=== PATIENT | female | born 1970 | race Caucasian/White ===

== ENCOUNTER 2017-12-19 12:23 | Emergency (ER) | payer MEDICARE, MEDICAID, SELFPAY ==
[2017-12-19 12:42] VITALS: BP 111/69; PULSE 71; RESP 16; TEMP 36.7; O2SAT 98
--- NOTE | 2017-12-19 12:59 | DI.RAD.S_ITS ---
PROCEDURE: XR FINGER RT MIN 2V INDICATIONS: swelling, injury distal end of 3rd digit TECHNIQUE: AP hand, 2 views of the right 3rd finger(s) acquired. COMPARISON: None. FINDINGS: Bones: There is lucency traverses the proximal aspect of the distal phalanx of the 3rd digit, which is seen on only one view. No suspicious bony lesions. Soft tissues: No suspicious soft tissue calcifications. IMPRESSION: Possible minimally displaced fracture of the proximal aspect of the distal phalanx of the 3rd digit. Clinical correlation recommended. Dictated by: Natasha Hanson M.D. on 12/19/2017 at 13:17 Approved by: Natasha Hanson M.D. on 12/19/2017 at 13:18
--- NOTE | 2017-12-19 15:00 | ED.UPPEXIN ---
HPI - Extremity Injury (Upper) <MARY Freire - Last Filed: 12/19/17 22:37> General Chief Complaint: Extremity Injury, Upper Stated Complaint: LUMP, BRUISED, SWOLLEN MIDDLE FINGER ON RIGHT HAND Time Seen by Provider: 12/19/17 14:59 History of Present Illness HPI narrative: 47-year-old female here for complaint of pain into her distal middle finger. She states that she was walking her dog earlier today when the dog took off after a animal with the lesion that was wrapped around her distal right middle finger. She reports increased pain with motion of the right middle finger. She denies any other injuries or concerns. Related Data Home Medications Medication Instructions Recorded Confirmed ASPIRIN (#ASPIRIN) 81 mg PO QDAY #0 12/05/10 ALBUTEROL (PROVENTIL INHALER) 0.09 mg IH #0 12/06/10 BUPROPION HCL (Bupropion HCl Sr) 150 mg PO #0 12/19/10 buspirone 15 mg PO TID #0 01/22/17 duloxetine 30 mg PO QDAY #0 01/22/17 methocarbamol 500 mg PO BID #0 01/22/17 omeprazole 20 mg PO QDAY #0 01/22/17 ranitidine HCl 300 mg PO HSP PRN #0 01/22/17 Previous Rx's Medication Instructions Recorded beclomethasone dipropionate [Qvar] 0.04 mg IH BID #1 12/06/10 hydroxyzine HCl 25 - 50 mg PO Q6HP PRN #60 02/08/17 oxycodone 1 - 2 tab PO Q4HP PRN #90 tab 02/08/17 Allergies Allergy/AdvReac Type Severity Reaction Status Date / Time Penicillins [PENICILLINS] Allergy Unknown Unverified 11/21/17 13:03 Review of Systems <MARY Freire - Last Filed: 12/19/17 22:37> Constitutional Reports system reviewed and no additional complaints, except as docu Eyes Reports system reviewed and no additional complaints, except as docu ENT Ears, Nose, Mouth, and Throat: Reports system reviewed and no additional complaints, except as docu Cardiovascular Denies chest pain and Denies dyspnea Respiratory Denies dyspnea Gastrointestinal Gastrointestinal: Denies abdominal pain Genitourinary Reports system reviewed and no additional complaints, except as docu Musculoskeletal Comments: Right middle finger pain Integumentary/Breasts Reports system reviewed and no additional complaints, except as docu Neurologic Reports system reviewed and no additional complaints, except as docu Psychiatric Reports system reviewed and no additional complaints, except as docu Exam <MARY Freire - Last Filed: 12/19/17 22:37> Const General: healthy appearing, well developed, well groomed and No acute distress Nutritional Appearance: average body habitus Orientation: alert, awake and oriented x3 HENMT Head: normal to inspection, normocephalic and atraumatic Eyes Pupils: PERRL EOM: EOM intact bilaterally Resp Effort & Inspection: normal respiratory effort Auscultation: clear to auscultation bilaterally Cardio Rate: regular rate Rhythm: regular rhythm Heart Sounds: S1 normal, S2 normal, no click, no gallops, no murmurs and no rubs Skin General: dry skin Extrem Other: Slight swelling to the distal right middle finger. No open lesions. Slight erythema. Distal sensation is intact. Distal cap refill less than 2 sec. Decreased range of motion at to the distal right middle finger due to pain. Course <MARY Freire - Last Filed: 12/19/17 22:37> Orders Ordered: ED Orders 12/19/17 12:59 XR finger RT min 2V Stat Last Vital Signs Temp 97.3 F L 12/19/17 16:04 Pulse 66 12/19/17 16:04 Resp 16 12/19/17 16:04 BP 118/72 12/19/17 16:04 Pulse Ox 96 12/19/17 16:04 <Thiago Horton MD - Last Filed: 12/28/17 04:48> Orders Ordered: ED Orders 12/19/17 12:59 XR finger RT min 2V Stat Last Vital Signs Temp 97.3 F L 12/19/17 16:04 Pulse 66 12/19/17 16:04 Resp 16 12/19/17 16:04 BP 118/72 12/19/17 16:04 Pulse Ox 96 12/19/17 16:04 MDM - Extremity Injury (Upper) <MARY Freire - Last Filed: 12/19/17 22:37> MDM Narrative Medical decision making narrative: X-ray shows nondisplaced fracture to the distal right middle finger. She is placed in a finger splint for comfort and support. [id number] Tylenol or Motrin as needed for any discomfort. Follow up with primary care provider. Ice and elevation help with any swelling. For any worsening symptoms return to the emergency room. Imaging Data finger right: Radiologist's impression: PROCEDURE: XR FINGER RT MIN 2V INDICATIONS: swelling, injury distal end of 3rd digit TECHNIQUE: AP hand, 2 views of the right 3rd finger(s) acquired. COMPARISON: None. FINDINGS: Bones: There is lucency traverses the proximal aspect of the distal phalanx of the 3rd digit, which is seen on only one view. No suspicious bony lesions. Soft tissues: No suspicious soft tissue calcifications. IMPRESSION: Possible minimally displaced fracture of the proximal aspect of the distal phalanx of the 3rd digit. Clinical correlation recommended. Dictated by: Natasha Hanson M.D. on 12/19/2017 at 13:17 Approved by: Natasha Hanson M.D. on 12/19/2017 at 13:18 <Thiago Horton MD - Last Filed: 12/28/17 04:48> Medical Records The PA/PHYSICIAN NEONATOLOGY functioned independently for the care of this pt, I was available, but not asked to participate in care. I am unable to determine appropriateness of management without personally examining the pt. Discharge Plan Departure Patient Disposition: Home, Self-Care Clinical Impression: Fracture of distal phalanx of finger Discharge Date/Time: 12/19/17 16:18 Interventions: ED Discharge Assessment Last Done: 12/19/17 16:18 Instructions: DI for Finger Fracture Activity Restrictions/Additional Instructions: X-ray shows a fracture to the distal middle finger. You have been placed in a splint for comfort and support use as directed. Follow up with primary care provider. Use [id number] Tylenol or Motrin as needed for any discomfort. For any worsening symptoms return to the emergency room. Prescriptions: No Action ASPIRIN (#ASPIRIN) 81 mg PO QDAY Qty: 0 RF: 0 ALBUTEROL (PROVENTIL INHALER) 0.09 mg IH Qty: 0 RF: 0 beclomethasone dipropionate [Qvar] 40 MCG/PUFF aerosol 0.04 mg IH BID Qty: 1 RF: 3 BUPROPION HCL (Bupropion HCl Sr) 150 mg PO Qty: 0 RF: 0 omeprazole 20 MG capsule,delayed release(DR/EC) 20 mg PO QDAY Qty: 0 RF: 0 buspirone 15 MG tablet 15 mg PO TID Qty: 0 RF: 0 duloxetine 30 MG capsule,delayed release(DR/EC) 30 mg PO QDAY Qty: 0 RF: 0 methocarbamol 500 MG tablet 500 mg PO BID Qty: 0 RF: 0 ranitidine HCl 300 MG tablet 300 mg PO HSP PRNQty: 0 RF: 0 hydroxyzine HCl 25 MG tablet 25 - 50 mg PO Q6HP PRNQty: 60 RF: 0 oxycodone 5 MG tablet 1 - 2 tab PO Q4HP PRNQty: 90 RF: 0 Referrals: Walker Machado MD [Primary Care Provider] -
[2017-12-19 16:04] VITALS: BP 118/72; PULSE 66; RESP 16; TEMP 36.3; O2SAT 96
== END 2017-12-19 16:18 | disposition home or self-care (01) ==
PROVIDERS: Emergency Provider Nurse Practitioner Family; Family Provider Internal Medicine; PCP Internal Medicine
DX: S62.639A Displaced fracture of distal phalanx of unspecified finger, initial encounter for closed fracture (principal); Y93.K1 Activity, walking an animal
CPT/HCPCS: 29130; 73140; 99283

== ENCOUNTER 2018-11-03 17:49 | Emergency (ER) | payer MEDICARE, MEDICAID, OTHER, SELFPAY ==
[2018-11-03 18:02] VITALS: BP 99/68; PULSE 88; RESP 20; TEMP 37.2; O2SAT 96
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
--- NOTE | 2018-11-03 20:09 | DI.RAD.S_ITS ---
PROCEDURE: XR LUMBAR SPINE 2-3V INDICATIONS: hx of surgery with trauma TECHNIQUE: 3 views of the lumbar spine were acquired. COMPARISON: [facility], , -SPINE 2-3 VIEWS, 02/05/2017, 16:29. FINDINGS: Bones: 5 [id number] vertebrae are present. There is normal bony alignment. Fusion hardware and disc space are present at the L3-4 level. Hardware is intact. No vertebral body compression fractures. No suspicious bony lesions. Soft tissues: Overlying bowel gas pattern is normal. No suspicious soft tissue calcifications. IMPRESSION: 1. No acute bony or hardware fractures. 2. Normal alignment. Dictated by: Marisol Lemus M.D. on 11/03/2018 at 20:54 Approved by: Marisol Lemus M.D. on 11/03/2018 at 20:55
[2018-11-03 21:19] VITALS: BP 102/55; PULSE 63; RESP 16; TEMP 36.7; O2SAT 96
== END 2018-11-03 21:20 | disposition home or self-care (01) ==
PROVIDERS: Emergency Provider Emergency Medicine; Family Provider Internal Medicine; PCP Internal Medicine
DX: M54.40 Lumbago with sciatica, unspecified side (principal); Y09 Assault by unspecified means
CPT/HCPCS: 72100; 99282; 99283

== ENCOUNTER 2018-12-09 15:45 | Emergency (ER) | payer MEDICARE, MEDICAID, SELFPAY ==
[2018-12-09 15:50] VITALS: BP 105/69; PULSE 83; RESP 18; TEMP 36.7; O2SAT 98; BMI 23.0
--- NOTE | 2018-12-09 15:52 | DI.RAD.S_ITS ---
PROCEDURE: XR RIBS RT MIN 3V W CXR 1V INDICATIONS: rib pain TECHNIQUE: 2 views of the right ribs were acquired, along with a single view chest. COMPARISON: None. FINDINGS: Surgical changes and devices: None. Bones and chest wall: No fractures or dislocations. No suspicious bony lesions. Overlying soft tissues appear unremarkable. Lungs and pleura: No pleural effusions or pneumothorax. Lungs appear clear. Mediastinum: Mediastinal contours appear normal. Heart size is normal. IMPRESSION: Source of rib pain is not seen. Dictated by: Vince Reed M.D. on 12/09/2018 at 16:15 Approved by: Vince Reed M.D. on 12/09/2018 at 16:15
--- NOTE | 2018-12-09 17:14 | ED.BACK ---
HPI - Back Pain/Injury <Rose Whitaker PA-C - Last Filed: 12/09/18 22:22> General Chief Complaint: Back Pain/Injury Stated Complaint: RIGHT RIB PAIN Time Seen by Provider: 12/09/18 16:20 Source: patient Mode of arrival: ambulatory Limitations: no limitations History of Present Illness HPI Narrative: This 48-year-old female complains of right-sided rib pain which started last when she was leaned over loading camping equipment into her truck bed. She states that she had pain all through the weekend, but did continue usual activities including unloading everything into her RV. She has taken a little bit of ibuprofen on and off, none today. No other medications tried. She denies any falls or any other acute injury. no acute changes in pain today. Pain seems localized to those ribs to her, no other chest pain. She has a history of COPD but denies any increased cough, wheeze, or dyspnea. She denies any new fever or rash. She denies any new pain or swelling in her extremities or other new complaints on systems review Related Data Home Medications Medication Instructions Recorded Confirmed ASPIRIN (#ASPIRIN) 81 mg PO QDAY #0 12/05/10 BUPROPION HCL (Bupropion HCl Sr) 150 mg PO #0 12/19/10 buspirone 15 mg PO TID #0 01/22/17 methocarbamol 500 mg PO BID #0 01/22/17 omeprazole 20 mg PO QDAY #0 01/22/17 albuterol sulfate [Ventolin HFA] 12/09/18 cyclobenzaprine 10 mg PO TID PRN 12/09/18 12/09/18 duloxetine 60 mg PO DAILY 12/09/18 12/09/18 epinephrine 0.3 mg IM PRN PRN 12/09/18 12/09/18 hydroxyzine HCl 25 mg PO TID 12/09/18 12/09/18 ranitidine HCl 150 mg PO BID 12/09/18 12/09/18 Previous Rx's Medication Instructions Recorded Qvar 0.04 mg IH BID #1 12/06/10 oxycodone 1 - 2 tab PO Q4HP PRN #90 tab 02/08/17 lidocaine [Lidoderm] 2 patch TOP DAILY #30 each 12/09/18 Allergies Allergy/AdvReac Type Severity Reaction Status Date / Time Penicillins [PENICILLINS] Allergy Unknown Verified 12/09/18 15:59 Review of Systems <Rose Whitaker PA-C - Last Filed: 12/09/18 22:22> Review of Systems ROS Unobtainable: All systems reviewed & are unremarkable except as noted in HPI and below PFSH <Rose Whitaker PA-C - Last Filed: 12/09/18 22:22> Medical History COPD (chronic obstructive pulmonary disease) (Chronic) Tobacco dependence (Chronic) Fibromyalgia (Chronic) Anxiety (Chronic) Dysthymic disorder (Chronic) Gastroesophageal reflux disease (Acute) Surgical History S/P lumbar fusion (Resolved) Social History Smoking Status: Current every day smoker Social History Smoking Status: Current every day smoker Exam <Rose Whitaker PA-C - Last Filed: 12/09/18 22:22> Narrative Exam Narrative: GENERAL APPEARANCE: Patient sitting comfortably, in no distress. NECK/THYROID: Neck supple LUNGS: Clear to auscultation bilaterally, coarse breath sounds, splinting slightly. CHEST: Tender to palpation over the right anterior lateral ribs most at the 6-8 levels, more at the intercostal spaces HEART: Regular rate and rhythm without murmur, normal S1, S2, no S3 or S4. DERMATOLOGIC: No exanthem EXTREMITIES: No edema. No calf tenderness NEUROLOGIC: Alert and oriented, normal speech, gait and coordination. Initial Vital Signs Initial Vital Signs: Vital Signs Temperature 98.1 F 12/09/18 15:50 Pulse Rate 83 12/09/18 15:50 Respiratory Rate 18 12/09/18 15:50 Blood Pressure 105/69 12/09/18 15:50 Pulse Oximetry 98 12/09/18 15:50 <Samantha Long DO - Last Filed: 12/12/18 07:52> Initial Vital Signs Initial Vital Signs: Vital Signs Temperature 98.1 F 12/09/18 15:50 Pulse Rate 83 12/09/18 15:50 Respiratory Rate 18 12/09/18 15:50 Blood Pressure 105/69 12/09/18 15:50 Pulse Oximetry 98 12/09/18 15:50 Course <Rose Whitaker PA-C - Last Filed: 12/09/18 22:22> Orders Ordered: ED Orders 12/09/18 15:52 XR ribs RT min 3V w CXR1V Stat Vital Signs - 8 hr 12/09/18 15:50 12/09/18 17:37 Temperature 98.1 F Pulse Rate 83 74 Respiratory Rate 18 16 Blood Pressure 105/69 Blood Pressure [Left Arm] 88/58 L Pulse Oximetry 98 97 <DO Turner Dunlap Last Filed: 12/12/18 07:52> Orders Ordered: ED Orders 12/09/18 15:52 XR ribs RT min 3V w CXR1V Stat Vital Signs - 8 hr 12/09/18 15:50 12/09/18 17:37 Temperature 98.1 F Pulse Rate 83 74 Respiratory Rate 18 16 Blood Pressure 105/69 Blood Pressure [Left Arm] 88/58 L Pulse Oximetry 98 97 MDM - Back Pain/Injury <AURELIO Obrien Last Filed: 12/09/18 22:22> Imaging Data Chest x-ray: Radiologist's impression: [place] [address] XRay Report Signed Patient: Chelsea Rodrigez [facility]#: [id number] : 1970Acct:[id number] Age/Sex: 48 / FDate of Service: 12/09/18 Loc: ED Accession Number: [id number] Procedure: XR ribs RT min 3V w CXR1V Ordering Provider: Samantha Long D.O. PROCEDURE: XR RIBS RT MIN 3V W CXR 1V INDICATIONS: rib pain TECHNIQUE: 2 views of the right ribs were acquired, along with a single view chest. COMPARISON: None. FINDINGS: Surgical changes and devices: None. Bones and chest wall: No fractures or dislocations. No suspicious bony lesions. Overlying soft tissues appear unremarkable. Lungs and pleura: No pleural effusions or pneumothorax. Lungs appear clear. Mediastinum: Mediastinal contours appear normal. Heart size is normal. IMPRESSION: Source of rib pain is not seen. Dictated by: Vince Reed M.D. on 12/09/2018 at 16:15 Approved by: Vince Reed M.D. on 12/09/2018 at 16:15 Discharge Plan Departure Patient Disposition: Home Clinical Impression: Intercostal muscle strain Qualifiers: Encounter type: initial encounter Qualified Code(s): S29.011A - Strain of muscle and tendon of front wall of thorax, initial encounter Discharge Date/Time: 12/09/18 18:18 Interventions: ED Discharge Assessment Last Done: 12/09/18 18:16 Instructions: DI for Rib Contusion Activity Restrictions/Additional Instructions: Please continue to take ibuprofen 6-800 mg every 8 hours routinely to help with pain and inflammation. I have also sent a prescription for a topical anesthetic patch to your pharmacy that you can wear for 12 hours daily to help with pain. Please use the incentive spirometer as the respiratory therapist instructed you, and you can take deep breaths with the pillow hugging technique to help with pain, make sure you do that at least several times daily to help keep your lungs properly inflated. Please see your PCP for follow-up this week, and return as we talked about if you have any acutely worsening symptoms in the interim Prescriptions: New lidocaine [Lidoderm] 5 % adhesive patch,medicated 2 patch TOP DAILY Qty: 30 RF: 0 No Action ASPIRIN (#ASPIRIN) 81 mg PO QDAY Qty: 0 RF: 0 Qvar 40 MCG/PUFF aerosol 0.04 mg IH BID Qty: 1 RF: 3 BUPROPION HCL (Bupropion HCl Sr) 150 mg PO Qty: 0 RF: 0 omeprazole 20 MG capsule,delayed release(DR/EC) 20 mg PO QDAY Qty: 0 RF: 0 buspirone 15 MG tablet 15 mg PO TID Qty: 0 RF: 0 methocarbamol 500 MG tablet 500 mg PO BID Qty: 0 RF: 0 oxycodone 5 MG tablet 1 - 2 tab PO Q4HP PRNQty: 90 RF: 0 cyclobenzaprine 10 mg tablet 10 mg PO TID PRN (Reason: Muscle Spasm) RF: 0 ranitidine HCl 150 mg tablet 150 mg PO BID RF: 0 hydroxyzine HCl 25 mg tablet 25 mg PO TID RF: 0 epinephrine 0.3 mg/0.3 mL auto-injector 0.3 mg IM PRN PRN (Reason: Allergic Reaction) RF: 0 albuterol sulfate [Ventolin HFA] 90 mcg/actuation HFA aerosol inhaler RF: 0 duloxetine 60 mg capsule,delayed release(DR/EC) 60 mg PO DAILY RF: 0 Referrals: Walker Machado MD [Primary Care Provider] - <Samantha Long DO - Last Filed: 12/12/18 07:52> Cosign ED Attending Matthewature Attestation: I was immediately available in the department for consultation. Documentation has been reviewed. I agree with assessment and plan.
[2018-12-09 17:37] VITALS: BP 88/58; PULSE 74; RESP 16; O2SAT 97
== END 2018-12-09 18:18 | disposition home or self-care (01) ==
PROVIDERS: Emergency Provider Internal Medicine; Family Provider Internal Medicine; PCP Internal Medicine
DX: S29.011A Strain of muscle and tendon of front wall of thorax, initial encounter (principal)
CPT/HCPCS: 71101; 99282; 99283

== ENCOUNTER 2019-05-08 16:12 | Emergency (ER) | payer MEDICARE, MEDICAID, SELFPAY ==
--- NOTE | 2019-05-08 | DI.RAD.S_ITS ---
PROCEDURE: XR FINGER RT MIN 2V INDICATIONS: POST REDUCTION TECHNIQUE: AP hand, 2 views of the right fourth finger(s) acquired. COMPARISON: [facility], , XR FINGER RT MIN 2V, 05/08/2019, 16:28. FINDINGS: Bones: There is been interval reduction of the fracture dislocation at the right fourth IP joint. A displaced volar plate fracture persists; however there is now anatomic alignment at the joint space. Soft tissues: No suspicious soft tissue calcifications. IMPRESSION: Status post successful reduction of the dislocation of the right fourth IP joint with minimally displaced volar plate fracture. Dictated by: Zohra Leo M.D. on 05/08/2019 at 17:02 Approved by: Zohra Leo M.D. on 05/08/2019 at 17:03
--- NOTE | 2019-05-08 16:23 | DI.RAD.S_ITS ---
/PROCEDURE: XR FINGER RT MIN 2V INDICATIONS: dislocated finger TECHNIQUE: AP hand, 2 views of the right fourth finger(s) acquired. COMPARISON: [facility], CR, XR FINGER RT MIN 2V, 05/08/2019, 16:37. [facility], CR, XR FINGER RT MIN 2V, 12/19/2017, 12:41. FINDINGS: Bones: A fracture dislocation is present at the proximal interphalangeal joint of the right fourth digit. The right fourth middle phalanx is dislocated laterally and dorsally with respect to the proximal phalanx. There is a displaced volar plate fracture. Soft tissues: No suspicious soft tissue calcifications. IMPRESSION: Fracture dislocation at the right fourth DIP joint. Dictated by: Zohra Leo M.D. on 05/08/2019 at 17:01 Approved by: Zohra Leo M.D. on 05/08/2019 at 17:02
[2019-05-08 16:24] VITALS: BP 138/96; PULSE 79; RESP 17; TEMP 36.7; O2SAT 94; BMI 23.4
[2019-05-08] MEDS: LIDOCAINE 1% (PF) 6 ML INJ (16:28)
--- NOTE | 2019-05-08 16:50 | ED.GENADULT ---
HPI - General Adult General Chief complaint: Extremity Injury, Upper Stated complaint: fall, think her right hand is broken Time Seen by Provider: 05/08/19 16:21 Source: patient Mode of arrival: Wheelchair Limitations: no limitations History of Present Illness HPI narrative: 48-year-old female here for evaluation of a injured right ring finger. She states she was climbing some stairs to open a door when she tripped on the stairs line lymph finger. It is angulated. No prior injury to finger. Related Data Home Medications Medication Instructions Recorded Confirmed ASPIRIN (#ASPIRIN) 81 mg PO QDAY #0 12/05/10 BUPROPION HCL (Bupropion HCl Sr) 150 mg PO #0 12/19/10 buspirone 15 mg PO TID #0 01/22/17 methocarbamol 500 mg PO BID #0 01/22/17 omeprazole 20 mg PO QDAY #0 01/22/17 albuterol sulfate [Ventolin HFA] 12/09/18 cyclobenzaprine 10 mg PO TID PRN 12/09/18 12/09/18 duloxetine 60 mg PO DAILY 12/09/18 12/09/18 epinephrine 0.3 mg IM PRN PRN 12/09/18 12/09/18 hydroxyzine HCl 25 mg PO TID 12/09/18 12/09/18 ranitidine HCl 150 mg PO BID 12/09/18 12/09/18 Previous Rx's Medication Instructions Recorded Qvar 0.04 mg IH BID #1 12/06/10 oxycodone 1 - 2 tab PO Q4HP PRN #90 tab 02/08/17 lidocaine [Lidoderm] 2 patch TOP DAILY #30 each 12/09/18 acetaminophen-codeine 1 tab PO Q4-6H PRN #7 tab 05/08/19 [Tylenol-Codeine #3] Allergies Allergy/AdvReac Type Severity Reaction Status Date / Time Penicillins [PENICILLINS] Allergy Unknown Verified 12/09/18 15:59 Review of Systems Constitutional Constitutional: Denies fever(s) ENT Ears, Nose, Mouth, and Throat: Denies disequilibrium Musculoskeletal Comments: Right finger injury Integumentary/Breasts Skin/Breast: Denies lesions and Denies rash Neurologic Neurologic: Denies paresthesias, Denies tremor(s) and Denies disequilibrium Hematologic/Lymphatic Hematologic/Lymphatic: Denies easy bleeding and Denies easy bruising PFSH Medical History Anxiety (Chronic) COPD (chronic obstructive pulmonary disease) (Chronic) Dysthymic disorder (Chronic) Fibromyalgia (Chronic) Gastroesophageal reflux disease (Acute) Tobacco dependence (Chronic) Social History Smoking Status: Current every day smoker Exam Initial Vital Signs Initial Vital Signs: Vital Signs Temperature 98.0 F 05/08/19 16:24 Pulse Rate 79 05/08/19 16:24 Respiratory Rate 17 05/08/19 16:24 Blood Pressure 138/96 H 05/08/19 16:24 Pulse Oximetry 94 05/08/19 16:24 Resp Effort & Inspection: normal respiratory effort Cardio Pulses: radial pulses present on the right Skin Lesions: no lesions Rashes: no rashes Extrem Other: Patient with an angulated right ring finger at the PIP joint. Psych Appearance: grossly normal and well kempt Procedures Orthopedic Joint Reduction Joint #1: Time Out Performed: Yes Side: right Joint Reduction Location: finger Analgesia: other (Finger block) Local Anesthesia: lidocaine 1% Amount of anesthesic used (mL): 4 Technique used: traction/counter-traction Post-reduction neuro exam: intact and no change Post-reduction vascular: intact Post Reduction X-Ray Obtained: Yes Post Reduction X-Ray Results: reduced Splint Applied: Yes Patient Tolerated Procedure: Well Orthopedic Splinting/Casting Injury #1: Side: right Upper Extremity Injury Location: finger Upper Extremity Immobilizer: aluminum form splint Post splinting neuro exam: intact Post splinting vascular exam: intact Placed by: Nursing Course Orders Ordered: ED Orders 05/08/19 16:23 XR finger RT min 2V Stat Discontinued Medications Lidocaine HCl (Xylocaine 1% (Pf)) 6 ml INJ NOW ONE Stop: 05/08/19 16:24 Last Admin: 05/08/19 16:28 Dose: 6 ml Documented by: SCANAPO Vital Signs Vital signs: Vital Signs - 8 hr 05/08/19 16:24 05/08/19 17:45 Temperature 98.0 F Pulse Rate 79 Respiratory Rate 17 Blood Pressure 138/96 H 121/75 Pulse Oximetry 94 Medical Decision Making Imaging Data Post reduction finger x-ray: Radiologist's impression: [address] [address] XRay Report Signed Patient: Chelsea Rodrigez [facility]#: [id number] : 1970Acct:[id number] Age/Sex: 48 / FDate of Service: 05/08/19 Loc: ED Accession Number: [id number] Procedure: XR finger RT min 2V Ordering Provider: José Marshall D.O. PROCEDURE: XR FINGER RT MIN 2V INDICATIONS: POST REDUCTION TECHNIQUE: AP hand, 2 views of the right fourth finger(s) acquired. COMPARISON: [facility], , XR FINGER RT MIN 2V, 05/08/2019, 16:28. FINDINGS: Bones: There is been interval reduction of the fracture dislocation at the right fourth IP joint. A displaced volar plate fracture persists; however there is now anatomic alignment at the joint space. Soft tissues: No suspicious soft tissue calcifications. IMPRESSION: Status post successful reduction of the dislocation of the right fourth IP joint with minimally displaced volar plate fracture. Dictated by: Zohra Leo M.D. on 05/08/2019 at 17:02 Approved by: Zohra Leo M.D. on 05/08/2019 at 17:03 Finger x-ray: Radiologist's impression: [address] [address] XRay Report Signed Patient: Chelsea Rodrigez [facility]#: [id number] : 1970Acct:[id number] Age/Sex: 48 / FDate of Service: 05/08/19 Loc: ED Accession Number: [id number] Procedure: XR finger RT min 2V Ordering Provider: José Marshall D.O. /PROCEDURE: XR FINGER RT MIN 2V INDICATIONS: dislocated finger TECHNIQUE: AP hand, 2 views of the right fourth finger(s) acquired. COMPARISON: [facility], , XR FINGER RT MIN 2V, 05/08/2019, 16:37. [facility], , XR FINGER RT MIN 2V, 12/19/2017, 12:41. FINDINGS: Bones: A fracture dislocation is present at the proximal interphalangeal joint of the right fourth digit. The right fourth middle phalanx is dislocated laterally and dorsally with respect to the proximal phalanx. There is a displaced volar plate fracture. Soft tissues: No suspicious soft tissue calcifications. IMPRESSION: Fracture dislocation at the right fourth DIP joint. Dictated by: Zohra Leo M.D. on 05/08/2019 at 17:01 Approved by: Zohra Leo M.D. on 05/08/2019 at 17:02 [facility] Narrative Medical decision making narrative: Patient is neurovascular intact. Her finger was reduced as described above. She does have a volar avulsion fracture. She was placed in a splint. She was given return precautions and follow-up instructions. Instructed to contact her primary doctor for further workup. She expressed understanding and agreement plan for Discharge Plan Departure Patient Disposition: Home Clinical Impression: Dislocation of finger PIP joint Qualifiers: Encounter type: initial encounter Qualified Code(s): S63.289A - Dislocation of proximal interphalangeal joint of unspecified finger, initial encounter Finger fracture, right Qualifiers: Encounter type: initial encounter Finger: ring finger Fracture type: closed Phalanx: middle Fracture alignment: displaced Qualified Code(s): S62.624A - Displaced fracture of middle phalanx of right ring finger, initial encounter for closed fracture Discharge Date/Time: 05/08/19 17:45 Instructions: DI for Finger Fracture, DI for Finger Dislocation Activity Restrictions/Additional Instructions: The splint needs to stay on. Tomorrow contact your primary provider for a follow-up. I would expect the splint to stay on for the next 3-4 weeks. Take the medication as needed. Return to the emergency department for any new or worsening symptoms. Prescriptions: New acetaminophen-codeine [Tylenol-Codeine #3] 300-30 mg tablet 1 tab PO Q4-6H PRN (Reason: pain) Qty: 7 RF: 0 No Action ASPIRIN (#ASPIRIN) 81 mg PO QDAY Qty: 0 RF: 0 Qvar 40 MCG/PUFF aerosol 0.04 mg IH BID Qty: 1 RF: 3 BUPROPION HCL (Bupropion HCl Sr) 150 mg PO Qty: 0 RF: 0 omeprazole 20 MG capsule,delayed release(DR/EC) 20 mg PO QDAY Qty: 0 RF: 0 buspirone 15 MG tablet 15 mg PO TID Qty: 0 RF: 0 methocarbamol 500 MG tablet 500 mg PO BID Qty: 0 RF: 0 oxycodone 5 MG tablet 1 - 2 tab PO Q4HP PRNQty: 90 RF: 0 cyclobenzaprine 10 mg tablet 10 mg PO TID PRN (Reason: Muscle Spasm) RF: 0 ranitidine HCl 150 mg tablet 150 mg PO BID RF: 0 hydroxyzine HCl 25 mg tablet 25 mg PO TID RF: 0 epinephrine 0.3 mg/0.3 mL auto-injector 0.3 mg IM PRN PRN (Reason: Allergic Reaction) RF: 0 albuterol sulfate [Ventolin HFA] 90 mcg/actuation HFA aerosol inhaler RF: 0 duloxetine 60 mg capsule,delayed release(DR/EC) 60 mg PO DAILY RF: 0 lidocaine [Lidoderm] 5 % adhesive patch,medicated 2 patch TOP DAILY Qty: 30 RF: 0 Referrals: Walker Machado MD [Primary Care Provider] -
[2019-05-08 17:45] VITALS: BP 121/75
== END 2019-05-08 17:45 | disposition home or self-care (01) ==
PROVIDERS: Emergency Provider Emergency Medicine; Family Provider Internal Medicine; PCP Internal Medicine
DX: S63.289A Dislocation of proximal interphalangeal joint of unspecified finger, initial encounter (principal); S62.624A Displaced fracture of middle phalanx of right ring finger, initial encounter for closed fracture
CPT/HCPCS: 26725; 29130; 73140; 99283

== ENCOUNTER → 2021-07-18 13:25 | Outpatient (CLI) | payer MEDICARE, MEDICAID, SELFPAY ==
--- NOTE | 2021-07-18 | DI.MRI.S_ITS ---
PROCEDURE: MR LUMBAR SPINE WO CON INDICATIONS: Radiculopathy, lumbar region TECHNIQUE: Noncontrast sagittal T1 spin echo and T2 fast echo, sagittal STIR, axial T1 and T2 fast spin echo through the lumbar spine. In cases with scoliosis, additional coronal T2 fast spin echo may be performed. COMPARISON: [facility], MR, MR LUMBAR SPINE WO CON, 10/27/2015, 8:05. [facility], MR, LUMBAR SPINE W/O CONTRAST, 01/14/2015, 7:50. [facility], CR, XR LUMBAR SPINE 2 OR 3 VIEWS, 07/05/2021, 16:06. [facility], CT, CT ABDOMEN PELVIS WITH CONTRAST, 07/15/2020, 12:54. FINDINGS: Image quality: Excellent. Alignment and Curvature: There is normal bony alignment. Bone Marrow: Marrow is of normal overall signal. No acute vertebral body compression fractures. Spinal Cord: Conus medullaris terminates at the L1 level. Visualized cord demonstrates normal signal and size. Paraspinous Soft Tissues: No paravertebral masses. And apparent left renal cyst is again seen, measuring 2 cm. T12-L1: Normal appearance. L1-L2: Mild loss of disc height is seen. Loss of disc signal is seen. Mild disc bulge is seen, with a central disc extrusion, with slight inferior migration of disc material. No significant neural foraminal narrowing is seen. Macrometastasis central the degenerative changes have slightly progressed compared to the prior. L2-L3: The disc height and disk signal are well-preserved. Mild generalized disc bulge is seen. There is moderate right-sided and [id number] left-sided neural foraminal narrowing seen. Minimal central canal narrowing is seen. These imaging findings have progressed compared to the prior study. L3-L4: Postoperative changes are seen at this level, with bilateral pedicle screws and vertical fixation rods. There has been removal of portions of the posterior elements. A disc spacer is seen. Minimal disc bulge is seen. No significant neural foraminal or central canal narrowing can be seen. The degenerative changes are clearly improved compared to the 2016 preoperative MRI examination. L4-L5: The disc height and disk signal are well-preserved. Mild to moderate disc bulge is seen, which is eccentric to the left. There is mild right-sided and at least moderate left-sided facet hypertrophy seen. There is moderate left-sided and minimal right-sided neural foraminal narrowing. Mild central canal narrowing is seen. These imaging findings have progressed compared to the prior study. L5-S1: The disc height and disk signal are well-preserved. Mild generalized disc bulge is seen. There is mild right-sided and moderate left-sided facet hypertrophy seen at this level. There is mild left-sided and no right-sided neural foraminal narrowing seen. Minimal central canal narrowing is seen. There is slight progression of degenerative change compared to 2016. IMPRESSION: Postoperative change is seen at L3-L4, with in the degrees narrowing compared to the preoperative MRI. Interval progression of degenerative change at the other lumbar levels compared to 2016. Dictated by: Kolton Solis M.D. on 07/18/2021 at 13:10 Approved by: Kolton Solis M.D. on 07/18/2021 at 13:15
== END ==
PROVIDERS: Family Provider Internal Medicine; PCP Internal Medicine; Referring Provider Orthopaedic Surgery Orthopaedic Surgery of the Spine; Visit Provider Orthopaedic Surgery Orthopaedic Surgery of the Spine
DX: M47.26 Other spondylosis with radiculopathy, lumbar region (principal); M47.27 Other spondylosis with radiculopathy, lumbosacral region; M48.061 Spinal stenosis, lumbar region without neurogenic claudication; M48.07 Spinal stenosis, lumbosacral region
CPT/HCPCS: 72148

== ENCOUNTER 2021-08-10 10:59 | Emergency (ER) | payer MEDICARE, MEDICAID, SELFPAY ==
[2021-08-10 11:25] VITALS: BP 125/75; PULSE 83; RESP 14; TEMP 37.4; O2SAT 95; BMI 29.2
--- NOTE | 2021-08-10 11:28 | DI.RAD.S_ITS ---
PROCEDURE: XR HAND RT MIN 3V INDICATIONS: fall,hand pain,mostly right 3rd/4th digit TECHNIQUE: 3 views of the hand(s) acquired. COMPARISON: None. FINDINGS: Bones: No fractures or dislocations. ORIF of the digit has been performed. Carpal bones are normally aligned. No suspicious bony lesions. Soft tissues: No suspicious soft tissue calcifications. IMPRESSION: Postsurgical sequelae. No acute fracture. No osseous lesion. If symptoms and/or clinical suspicion for pathology persist, further assessment with repeat, or advanced imaging (e.g., CT, MRI, or bone scan) may be helpful for further assessment. Dictated by: Natasha Hanson M.D. on 08/10/2021 at 11:49 Approved by: Natasha Hanson M.D. on 08/10/2021 at 11:50
--- NOTE | 2021-08-10 14:37 | ED_ITS ---
HPI - Fall General Chief Complaint: Fall Stated Complaint: Fell and heard finger snap yesterday Time Seen by Provider: 08/10/21 14:10 Source: patient History of Present Illness HPI Narrative: 50-year-old woman with a history of anxiety and depression prior fusion to her right middle finger presents with pain to her ring finger after falling last night and hearing a loud ?pop?. She woke this morning to find the area swollen and much more tender in comes in for further evaluation. Related Data Home Medications Medication Instructions Recorded Confirmed ASPIRIN (#ASPIRIN) 81 mg PO QDAY #0 12/05/10 BUPROPION HCL (Bupropion HCl Sr) 150 mg PO #0 12/19/10 buspirone 15 mg tablet 15 mg PO TID #0 01/22/17 methocarbamol 500 mg tablet 500 mg PO BID #0 01/22/17 omeprazole 20 mg capsule,delayed 20 mg PO QDAY #0 01/22/17 release albuterol sulfate 90 mcg/actuation 12/09/18 aerosol inhaler cyclobenzaprine 10 mg tablet 10 mg PO TID PRN 12/09/18 12/09/18 duloxetine 60 mg capsule,delayed 60 mg PO DAILY 12/09/18 12/09/18 release epinephrine 0.3 mg/0.3 mL 0.3 mg IM PRN PRN 12/09/18 12/09/18 injection, auto-injector hydroxyzine HCl 25 mg tablet 25 mg PO TID 12/09/18 12/09/18 ranitidine HCl 150 mg tablet 150 mg PO BID 12/09/18 12/09/18 Previous Rx's Medication Instructions Recorded beclomethasone dipropionate 40 0.04 mg IH BID #1 12/06/10 mcg/actuation aerosol inhaler (Qvar) oxycodone 5 mg tablet 1 - 2 tab PO Q4HP PRN #90 tab 02/08/17 lidocaine 5 % topical patch 2 patch TOP DAILY #30 each 12/09/18 (Lidoderm) acetaminophen 300 mg-codeine 30 mg 1 tab PO Q4-6H PRN #7 tab 05/08/19 tablet (Tylenol-Codeine #3) Allergies Allergy/AdvReac Type Severity Reaction Status Date / Time Penicillins [PENICILLINS] Allergy Unknown Verified 08/10/21 11:25 Review of Systems Review of Systems Narrative: Pertinent positive and negative findings as per HPI Remainder of review of systems is otherwise unremarkable for Constitutional: Fevers, chills, weakness ENT: No sore throat, neck pain, ear pain CV: Chest pain, palpitations, Respiratory: Cough, wheeze, dyspnea GI: Nausea, vomiting, diarrhea, Patient History Medical History (Updated 08/10/21 @ 14:43 by Ghazala Vidal MD) Anxiety COPD (chronic obstructive pulmonary disease) Dysthymic disorder Fibromyalgia Gastroesophageal reflux disease Tobacco dependence Surgical History S/P lumbar fusion Social History Smoking Status: Current every day smoker Smoking Status: Current every day smoker alcohol intake frequency: holidays/special occasions only Substance Use Type: marijuana Exam Narrative Exam Narrative: General: Alert appropriate in no acute distress Respiratory: Able to speak in full sentences, no obvious respiratory distress Skin: No obvious rashes, warm and dry Neurologic: Grossly intact no obvious asymmetries or abnormalities Psych: appropriate insight and affect, cooperative Extremity: Tenderness over the right MCP joint with some ecchymosis. She does have somewhat limited range of motion secondary to tenderness. She is neurovascularly intact Initial Vital Signs Initial Vital Signs: Vital Signs Temperature 99.4 F 08/10/21 11:25 Pulse Rate 83 08/10/21 11:25 Respiratory Rate 14 08/10/21 11:25 Blood Pressure 125/75 08/10/21 11:25 Pulse Oximetry 95 08/10/21 11:25 Procedures Orthopedic Splinting/Casting Right ring finger: Time of procedure: 14:40 Side: right Upper Extremity Injury Location: finger Upper Extremity Immobilizer: nicolas tape and Marlo wrap Post splinting neuro exam: intact Post splinting vascular exam: intact Placed by: Provider Course Orders Ordered: ED Orders 08/10/21 11:28 XR hand RT min 3V Stat Vital Signs Vital signs: Vital Signs - 8 hr 08/10/21 11:25 Temperature 99.4 F Pulse Rate 83 Respiratory Rate 14 Blood Pressure 125/75 Pulse Oximetry 95 MDM - Fall MDM Narrative Medical decision making narrative: 50-year-old woman presents after a fall last night with an acute injury to her left ring finger. X-rays are reassuring. She clearly has sprained her finger and MCP joint. Fingers are nicolas-taped and then Marlo wrap to the hand around a roll of Kerlix for stability with significantly reduced pain. Discussed ibupr ofen and Tylenol, elevation and ice. Reviewed x-ray findings with patient. At this point she is safe for home discharge Discharge Plan Departure Patient Disposition: Home Clinical Impression: Finger sprain Qualifiers: Encounter type: initial encounter Finger: ring finger Sprain of finger site: metacarpophalangeal joint Laterality: right Qualified Code(s): S63.654A - Sprain of metacarpophalangeal joint of right ring finger, initial encounter Instructions: DI for Finger Sprain Activity Restrictions/Additional Instructions: Thank you for coming in today You did not break anything in your finger or your hand. You clearly injured the area and using nicolas taping and the splint/Marlo wrap will be helpful in controlling pain. You can certainly use ice as needed. Using 400 mg of ibuprofen (2 [id number] pills) and 1 Tylenol every 6 hours can be very helpful in controlling pain. Do expect to hurt more and have more swelling over the 1st 48 hours. If your finding new or worsening symptoms please feel free to return to the emergency department or follow-up with your primary care provider. I wish you the best Prescriptions: No Action ASPIRIN (#ASPIRIN) 81 mg PO QDAY Qty: 0 0RF Qvar 40 MCG/PUFF aerosol 0.04 mg IH BID Qty: 1 3RF BUPROPION HCL (Bupropion HCl Sr) 150 mg PO Qty: 0 0RF omeprazole 20 MG capsule,delayed release(DR/EC) 20 mg PO QDAY Qty: 0 0RF buspirone 15 MG tablet 15 mg PO TID Qty: 0 0RF methocarbamol 500 MG tablet 500 mg PO BID Qty: 0 0RF oxycodone 5 MG tablet 1 - 2 tab PO Q4HP PRNQty: 90 0RF acetaminophen-codeine [Tylenol-Codeine #3] 300-30 mg tablet 1 tab PO Q4-6H PRN (Reason: pain) Qty: 7 0RF cyclobenzaprine 10 mg tablet 10 mg PO TID PRN (Reason: Muscle Spasm) 0RF ranitidine HCl 150 mg tablet 150 mg PO BID 0RF hydroxyzine HCl 25 mg tablet 25 mg PO TID 0RF epinephrine 0.3 mg/0.3 mL auto-injector 0.3 mg IM PRN PRN (Reason: Allergic Reaction) 0RF albuterol sulfate [Ventolin HFA] 90 mcg/actuation HFA aerosol inhaler 0RF duloxetine 60 mg capsule,delayed release(DR/EC) 60 mg PO DAILY 0RF lidocaine [Lidoderm] 5 % adhesive patch,medicated 2 patch TOP DAILY Qty: 30 0RF Rx Instructions: leave on most painful area for 12 hrs Referrals: Walker Machado MD [Primary Care Provider] -
[2021-08-10] MEDS: IBUPROFEN 400 MG TABLET PO (14:50)
[2021-08-10] MEDS: ACETAMINOPHEN 325 MG TABLET PO (14:50)
[2021-08-10 14:55] VITALS: BP 131/87; PULSE 87; RESP 18; O2SAT 97
== END 2021-08-10 14:56 | disposition home or self-care (01) ==
PROVIDERS: Emergency Provider Emergency Medicine; Family Provider Internal Medicine; PCP Internal Medicine
DX: S63.654A Sprain of metacarpophalangeal joint of right ring finger, initial encounter (principal); F17.200 Nicotine dependence, unspecified, uncomplicated; W19.XXXA Unspecified fall, initial encounter
CPT/HCPCS: 73130; 99283

== ENCOUNTER 2022-02-19 14:16 | Emergency (ER) | payer MEDICARE, MEDICAID, SELFPAY ==
[2022-02-19 14:40] VITALS: BP 127/78; PULSE 94; RESP 22; TEMP 36.8; O2SAT 97; BMI 27.3
[2022-02-19 14:56] LABS: COVID19 -Nasal RAPID POSITIVE (Negative)
[2022-02-19 17:22] VITALS: BP 132/74; PULSE 96; O2SAT 99
[2022-02-19 17:30] VITALS: BP 119/68; PULSE 90; O2SAT 100
[2022-02-19 18:00] VITALS: BP 123/69; PULSE 80; O2SAT 96
--- NOTE | 2022-02-19 18:06 | ED_ITS ---
HPI - URI/Sore Throat <MARY Garcia - Last Filed: 02/19/22 19:16> General Chief Complaint: Upper Respiratory Symptoms Stated Complaint: swollen ear, cough, fever, throwing up Time Seen by Provider: 02/19/22 18:03 Source: patient Mode of arrival: Ambulatory History of Present Illness HPI Narrative: 51-year-old female, daily smoker and history of COPD, presented to the emergency department with cough, headache, sore throat and right ear x3 days. Patient states that she tested herself at home for COVID 4 days ago and was negative. Patient tested positive for COVID today in the ED. Patient denies any known COVID exposures. Related Data Home Medications Medication Instructions Recorded Confirmed ASPIRIN (#ASPIRIN) 81 mg PO QDAY ##0 12/05/10 BUPROPION HCL (Bupropion HCl Sr) 150 mg PO ##0 12/19/10 buspirone 15 mg tablet 15 mg PO TID ##0 01/22/17 methocarbamol 500 mg tablet 500 mg PO BID ##0 01/22/17 omeprazole 20 mg capsule,delayed 20 mg PO QDAY ##0 01/22/17 release albuterol sulfate 90 mcg/actuation 12/09/18 aerosol inhaler cyclobenzaprine 10 mg tablet 10 mg PO TID PRN Muscle Spasm 12/09/18 12/09/18 duloxetine 60 mg capsule,delayed 60 mg PO DAILY 12/09/18 12/09/18 release epinephrine 0.3 mg/0.3 mL 0.3 mg IM PRN PRN Allergic Reaction 12/09/18 12/09/18 injection, auto-injector hydroxyzine HCl 25 mg tablet 25 mg PO TID 12/09/18 12/09/18 ranitidine HCl 150 mg tablet 150 mg PO BID 12/09/18 12/09/18 Previous Rx's Medication Instructions Recorded beclomethasone dipropionate 40 0.04 mg IH BID ##1 12/06/10 mcg/actuation aerosol inhaler (Qvar) oxycodone 5 mg tablet 1 - 2 tab PO Q4HP PRN #90 tabs 02/08/17 lidocaine 5 % topical patch 2 patch topical DAILY #30 ea 12/09/18 (Lidoderm) acetaminophen 300 mg-codeine 30 mg 1 tab PO Q4-6H PRN pain #7 tabs 05/08/19 tablet (Tylenol-Codeine #3) Allergies Allergy/AdvReac Type Severity Reaction Status Date / Time Penicillins [PENICILLINS] Allergy Unknown Verified 08/10/21 11:25 Review of Systems <MARY Garcia - Last Filed: 02/19/22 19:16> Review of Systems Narrative: Narrative: GENERAL: Denies chills, sweats. See HPI HEENT: Denies sinus pain, difficulty swallowing, dizziness. RESPIRATORY: Denies dyspnea, wheezing, sputum. CARDIOVASCULAR: Denies chest pain, palpitations, edema. GASTROINTESTINAL: Denies nausea, vomiting, abdominal pain, diarrhea, constipation. : Denies dysuria, frequency, incontinence, hematuria, urinary retention, flank pain. MUSCULOSKELETAL: Denies weakness, joint pain, or bony pain. SKIN: Denies rash, skin lesions, or pruritis. NEUROLOGIC: Denies weakness, dizziness, headache, numbness, confusion. PSYCHIATRIC: No concerning psychosocial issues. Patient History <MARY Garcia - Last Filed: 02/19/22 19:16> Medical History Anxiety COPD (chronic obstructive pulmonary disease) Dysthymic disorder Fibromyalgia Gastroesophageal reflux disease Tobacco dependence Surgical History S/P lumbar fusion Social History Smoking Status: Current every day smoker Smoking Status: Current every day smoker alcohol intake frequency: holidays/special occasions only Substance Use Type: marijuana Exam <MARY Garcia - Last Filed: 02/19/22 19:16> Narrative Exam Narrative: Exam Narrative: GENERAL: This is a disheveled-appearing patient, in no acute distress HEAD: Atraumatic. Normocephalic. EYES: Pupils equal round and reactive. Extraocular motions intact. No scleral icterus, injection or drainage. ENT: Nose without bleeding, purulent drainage. Throat with mild erythema, no tonsillar hypertrophy or exudate. Airway patent. NECK: Trachea midline. No JVD or lymphadenopathy. Nontender. CARDIOVASCULAR: Regular rate and rhythm without murmurs, peripheral pulses intact, cap refill <2 sec. RESPIRATORY: Breath sounds equal and clear bilaterally. No wheezes, rales, or rhonchi. No increased respiratory effort. No accessory muscle use. GASTROINTESTINAL: Abdomen soft, non-tender, nondistended without guarding or rebound. No suprapubic pain. EXTREMITIES: Normal range of motion, no clubbing or edema. Neurovascularly intact. NEURO: A&O x 3. SKIN: Warm, dry, no rashes or lesions noted. Initial Vital Signs Initial Vital Signs: Vital Signs Temperature 98.2 F 02/19/22 14:40 Pulse Rate 94 H 02/19/22 14:40 Respiratory Rate 22 02/19/22 14:40 Blood Pressure 127/78 02/19/22 14:40 Pulse Oximetry 97 02/19/22 14:40 Oxygen Delivery Method 02/19/22 14:40 Reviewed <José Marshall DO - Last Filed: 02/19/22 20:54> Initial Vital Signs Initial Vital Signs: Vital Signs Temperature 98.2 F 02/19/22 14:40 Pulse Rate 94 H 02/19/22 14:40 Respiratory Rate 22 02/19/22 14:40 Blood Pressure 127/78 02/19/22 14:40 Pulse Oximetry 97 02/19/22 14:40 Oxygen Delivery Method 02/19/22 14:40 Course <MARY Garcia - Last Filed: 02/19/22 19:16> Orders Ordered: ED Orders 02/19/22 14:37 COVID19 -Nasal RAPID/Pre-Proc Stat Vital Signs Vital signs: Vital Signs - 8 hr 02/19/22 14:40 02/19/22 17:22 02/19/22 17:22 Temperature 98.2 F Pulse Rate 94 H 96 H Respiratory Rate 22 Blood Pressure 127/78 132/74 Pulse Oximetry 97 99 Oxygen Delivery Method Room Air 02/19/22 17:30 02/19/22 17:30 02/19/22 18:00 Temperature Pulse Rate 90 Respiratory Rate Blood Pressure 119/68 123/69 Pulse Oximetry 100 Oxygen Delivery Method 02/19/22 18:00 Temperature Pulse Rate 80 Respiratory Rate Blood Pressure Pulse Oximetry 96 Oxygen Delivery Method <José Marshall DO - Last Filed: 02/19/22 20:54> Orders Ordered: ED Orders 02/19/22 14:37 COVID19 -Nasal RAPID/Pre-Proc Stat Vital Signs Vital signs: Vital Signs - 8 hr 02/19/22 14:40 02/19/22 17:22 02/19/22 17:22 Temperature 98.2 F Pulse Rate 94 H 96 H Respiratory Rate 22 Blood Pressure 127/78 132/74 Pulse Oximetry 97 99 Oxygen Delivery Method Room Air 02/19/22 17:30 02/19/22 17:30 02/19/22 18:00 Temperature Pulse Rate 90 Respiratory Rate Blood Pressure 119/68 123/69 Pulse Oximetry 100 Oxygen Delivery Method 02/19/22 18:00 Temperature Pulse Rate 80 Respiratory Rate Blood Pressure Pulse Oximetry 96 Oxygen Delivery Method MDM - URI/Sore Throat <MARY Garcia - Last Filed: 02/19/22 19:16> Differential Diagnosis Differential diagnosis: Likely other (COVID and cerumen impaction) Lab Data Labs: Lab Results 02/19/22 Range/Units 14:37 SARS-CoV-2 (PCR) Positive H (Negative) MDM Narrative Medical decision making narrative: 51-year-old female, with history of COPD, that presents to the emergency department with right ear pain, cough, sore throat x2 days. COVID was positive. Right ear canal was impacted with dried cerumen. Did not want to expose staff to a COVID positive patient long enough to irrigate her ear canal, so directed her to [id number] earwax removal system. Discussed possibility of Paxlovid prescription, but the side effects and rebound illness were not worth the risk. Discussed return precautions and plan of care with patient, who was agreeable with course of action. <José Marshall DO - Last Filed: 02/19/22 20:54> Lab Data Labs: Lab Results 02/19/22 Range/Units 14:37 SARS-CoV-2 (PCR) Positive H (Negative) Discharge Plan Departure Patient Disposition: Home Clinical Impression: COVID-19, Impacted cerumen Instructions: DI for Ear Pain-Adult, DI for COVID-19 (Suspected or Confirmed ) Activity Restrictions/Additional Instructions: *You have been diagnosed with Covid 19 and wax buildup in your right ear. You may obtain a earwax removal kit from your local pharmacy such as [facility], to flush out the ear wax on the right ear. If symptoms persist, after your COVID symptoms have resolved, he may follow up with your family doctor who may also be able to flush out here ear wax. You were evaluated in the emergency department (ED) with symptoms concerning for COVID-19. While the diagnosis may feel scary, most cases resolve on their own without hospitalization. Certain high risk people are treated with medications to reduce their risk of serious symptoms. At this time, we feel that you are safe to go home. Steps to take at home to care for yourself: ? Get lots of rest and stay hydrated by drinking plenty of fluids. ? You can take acetaminophen (eg, Tylenol) or ibuprofen (eg, Advil, Motrin) for fevers or body aches. ? If you have questions, call your primary care doctor, contact your local health department, or visit the CDC?s website at gov/coronavirus. ? Speak with your primary care doctor within two weeks to discuss a plan to follow up. How to avoid spreading the virus to others: ? Stay at home, except if seeking medical care. ? Cover your coughs (with a tissue or in your elbow) and avoid touching your face unnecessarily. ? Wash your hands often (using soap and water for 20 seconds) to decrease your risk of infecting others. ? Try to avoid close contact with others in your home, including pets. If possible, use a different bathroom, and sleep in a separate room. If you must be near others, be sure everyone wears a face mask and wash your hands before interacting with them. ? If a test was sent and is positive, your local health department may contact you. Follow their directions about when to go back to work or school. ? If you were not tested, you may stop quarantine 10 days after the start of y our symptoms, as long as your fever has been completely gone (without using medications) for at least 24 hours and your other symptoms are improving. ? Vaccination against COVID-19 can reduce your risk of reinfection. If you tested negative for COVID-19, you may get the vaccine as soon as possible. If you tested positive for COVID-19, you should still get a vaccine once allowed by your health department. If you or those around you are concerned about COVID-19, call your primary care doctor for advice about steps to take. Your health system may have specific locations for testing if you are not extremely sick. This lowers the risk that you could catch a virus or pass it on in the ED waiting room. Speak to your doctor or come back to the ED for new or worsening symptoms, such as severe headache, confusion, chest pain, difficulty breathing, or vomiting to the point that you cannot drink fluids. Review medication inserts for side effects and call the ED if you have any questions about the medications or care you received. *What to do: *Please continue to take your regular medications as directed. [ ] New medication prescriptions sent to your pharmacy: [ ] [ ] New medication written as a paper prescription [x ] No new medications given *Please follow up with your primary care provider in 2-3 days, call for an appointment. Let them know you were seen in the Emergency Department and that we ask that you be seen in follow up. We will electronically transmit a record of today's note if your PCP is in our system *If you do not have a primary care provider please contact the [facility] Resource line at [phone]. They will ask some questions about your medical history and help get you set up with a doctor in the community. ? Return to ER if you should have any new, worsening or concerning symptoms, such as worsening pain, severe headache, confusion, chest pain, difficulty breathing, fever greater than 101 F, shaking chills, persistent vomiting to the point that you cannot drink fluids, or other new or worsening symptoms. Prescriptions: No Action ASPIRIN (#ASPIRIN) 81 mg PO QDAY Qty: 0 Qvar 40 MCG/PUFF aerosol 0.04 mg IH BID Qty: 1 3RF BUPROPION HCL (Bupropion HCl Sr) 150 mg PO Qty: 0 omeprazole 20 MG capsule,delayed release(DR/EC) 20 mg PO QDAY Qty: 0 buspirone 15 MG tablet 15 mg PO TID Qty: 0 methocarbamol 500 MG tablet 500 mg PO BID Qty: 0 oxycodone 5 MG tablet 1 - 2 tab PO Q4HP PRNQty: 90 0RF acetaminophen-codeine [Tylenol-Codeine #3] 300-30 mg tablet 1 tab PO Q4-6H PRN (Reason: pain) Qty: 7 0RF cyclobenzaprine 10 mg tablet 10 mg PO TID PRN (Reason: Muscle Spasm) ranitidine HCl 150 mg tablet 150 mg PO BID hydroxyzine HCl 25 mg tablet 25 mg PO TID epinephrine 0.3 mg/0.3 mL auto-injector 0.3 mg IM PRN PRN (Reason: Allergic Reaction) albuterol sulfate [Ventolin HFA] 90 mcg/actuation HFA aerosol inhaler duloxetine 60 mg capsule,delayed release(DR/EC) 60 mg PO DAILY lidocaine [Lidoderm] 5 % adhesive patch,medicated 2 patch TOP DAILY Qty: 30 0RF Rx Instructions: leave on most painful area for 12 hrs Referrals: Walker Machado MD [Primary Care Provider] - Visit Report Forms: Patient Portal/API <José Marshall DO - Last Filed: 02/19/22 20:54> [facility]: Dr Marshall Co-Sign Statement: I was available for consultation during this patient's emergency department visit. This chart is signed by myself for administrative purposes only. I did not have direct contact with this patient during this visit. They were seen independently by the APC.
== END 2022-02-19 18:35 | disposition home or self-care (01) ==
PROVIDERS: Emergency Medicine; Emergency Provider Registered Nurse; Family Provider Internal Medicine; PCP Internal Medicine
DX: U07.1 COVID-19 (principal); H61.21 Impacted cerumen, right ear
CPT/HCPCS: 87635; 99282; C9803

== ENCOUNTER → 2022-12-05 11:02 | Outpatient (CLI) | payer MEDICARE, MEDICAID, SELFPAY ==
--- NOTE | 2022-12-05 | DI.MRI.S_ITS ---
PROCEDURE: MR LUMBAR SPINE WO CON INDICATIONS: Radiculopathy, lumbar region TECHNIQUE: Noncontrast sagittal T1 spin echo and T2 fast echo, sagittal STIR, and T2 fast spin echo through the lumbar spine. In cases with scoliosis, additional coronal T2 fast spin echo may be performed. COMPARISON: [facility], MR, MR LUMBAR SPINE WO CON, 07/18/2021, 13:37. FINDINGS: Image quality: Excellent. Alignment and Curvature: There is normal bony alignment. Bones: Stable L3-L4 PLIF postsurgical changes. Marrow is of normal overall signal. No acute vertebral body compression fractures. Spinal Cord: Conus medullaris terminates at the L1 level. Visualized cord demonstrates normal signal and size. Paraspinous Soft Tissues: No paravertebral masses. T12-L1: Normal appearance. L1-L2: Loss of disc signal and slight loss of disc height. Mild, diffuse disc bulge. Small central disc extrusion. Extruded disc material extends inferiorly to a pedicular level. Mild narrowing of the central canal. No neural foraminal narrowing. No neural compression. L2-L3: Loss of disc signal. Mild, diffuse disc bulge. Mild narrowing of the central canal. Mild bilateral neural foraminal narrowing. No neural compression. L3-L4: Status post fusion. No central stenosis. No neural foraminal narrowing. No neural compression. L4-L5: Loss of disc signal. Mild, diffuse disc bulge. Mild right and moderate left facet hypertrophy. Moderate narrowing of the central canal. Mild right and [id number]-[id number] left neural foraminal narrowing. No neural compression. L5-S1: Slight loss of disc signal. Mild right and moderate left facet hypertrophy. No central stenosis. No neural foraminal narrowing. No neural compression. IMPRESSION: Stable postsurgical changes. Multilevel degenerative disc disease. Multilevel facet arthropathy. No severe central canal narrowing. No severe neural foraminal narrowing. No neural compression. Dictated by: Candi Ballard MD, PhD on 12/05/2022 at 14:10 Approved by: Candi Ballard MD, PhD on 12/05/2022 at 14:15
== END ==
PROVIDERS: Family Provider Internal Medicine; PCP Internal Medicine; Referring Provider Physical Medicine & Rehabilitation; Visit Provider Physical Medicine & Rehabilitation
DX: M51.16 Intervertebral disc disorders with radiculopathy, lumbar region (principal); M47.26 Other spondylosis with radiculopathy, lumbar region; M47.27 Other spondylosis with radiculopathy, lumbosacral region; Z98.1 Arthrodesis status
CPT/HCPCS: 72148

== ENCOUNTER 2023-07-10 09:45 | Outpatient (RCR) | payer MEDICARE, MEDICAID, SELFPAY ==
--- NOTE | 2023-02-07 11:04 | PT.OIE ---
Current Diagnoses Stress incontinence (female) (male) (02/07/23) Pelvic muscle wasting (02/07/23) Nocturia (02/07/23) Urgency of urination (02/07/23) Past Medical History (Last Updated 11/06/22 @ 18:31 by Jayla Garza) Anxiety Chronic back pain Chronic cough COPD (chronic obstructive pulmonary disease) Degenerative disc disease Depression Dysthymic disorder Fibromyalgia Gastroesophageal reflux disease Tobacco dependence Past Surgical History (Last Updated 11/06/22 @ 18:31 by Jayla Garza) Anesthesia History of section (~01/2003) History of cholecystectomy (~1985) History of foot surgery (~1984) History of hand surgery (~07/2019) History of surgery on left wrist (~2014) S/P lumbar fusion (~01/2017) Visit Care Team Role Provider Type Walker Machado MD Family Provider Non-Staff Primary Care Provider Specialty: Internal Medicine Address: [address] [place] [address], [id number] Email: Huey Esparza MD Attending Provider Physician Referring Provider Specialty: [employer] Address: [address] [place] [address], [address], [place], [address] Email: [email or web address] Physical Therapy Initial Evaluation PT-OP-A Visit Information Start: 01/30/23 17:35 Freq: Status: Active Protocol: Document 02/07/23 09:45 [facility] (Rec: 02/07/23 10:20 [facility] [id number]) Out-Patient Physical Therapy Visit Information Visit Information Visit Type Initial Evaluation Visit Start Time 09:45 Visit Stop Time 10:30 Total Visit Minutes 45 Visit Number 1 Evaluation Information Evaluation Date 02/07/23 PT-OP-B Current Condition Start: 01/30/23 17:35 Freq: Status: Active Protocol: Document 02/07/23 09:45 [facility] (Rec: 02/07/23 10:20 [facility] [id number]) Current Condition History of Current Condition Onset Date 1 year ago Current Complaints urinary frequency and urgency, nocturia and stress incontinence History of Current Condition pt notes she has to wake up 3 times per night to void and she void frequently during the day emptying her bladder approx 8 times per day. She feels that she empties her bladder fully. She feels her leaking is primarily from urinary stress incontinence. She is wearing pads daily and changes them at least once during the day but does not wear them at night. History of lumbar fusion and she gets steroid and cortisone injections. Her Fusion was January of 2017 at L3-4. A year later she had a fall onto her back. She has never felt the same since. At that time her bowel movements changed to where she is not fully emptying her bowels. She notes a great amount of cramping in her calfs and feet . Hx of 2 vaginal deliveries and 1 . She drinks 5 glasses of water per day sometimes a glass of milk in the evening. Treatment Goals Patient/Caregiver Goals treatment goals include reducing urinary incontinence, urinary urgency and frequency PT-OP-C Subjective Start: 01/30/23 17:35 Freq: Status: Active Protocol: Document 02/07/23 09:45 [facility] (Rec: 02/07/23 11:02 [facility] [id number]) Patient Questionnaires Pelvic Pain and Urgency/Frequency Patient Symptom Scale Pelvic Pain Score 14 PT-OP-I Pelvic Floor Start: 01/30/23 17:35 Freq: Status: Active Protocol: Document 02/07/23 09:45 [facility] (Rec: 02/07/23 11:02 [facility] [id number]) Pelvic Floor Assessment Urine Pelvic Floor Surgery No Urinary Symptoms Urge Sensation Other Urinary Symptoms urinary stress and urge incontinence, nocturia Leakage Size Medium Leakage Cause Cough,Urge Leaks Per Day 4 Voiding Frequency hourly Nocturia 3 Pads Used In 24 Hours 2 Urine Pad Type Maxi Pad Pelvic Clock Pelvic Clock 12-3 Guarding Pelvic Clock 3-6 Guarding Contraction Ability Voluntary Contraction Weak Voluntary Relaxation Weak Manual Muscle Testing Left 1 Manual Muscle Testing Right 1 Manual Muscle Testing Anterior 1 Manual Muscle Testing Posterior 1 Muscle Endurance (Seconds) 2 Comments Pelvic Floor Comments Chelsea is very guarded on the left lateral wall of her levator ani, she is unable to relax her pelvic floor in order to contract it. Right side is not guarded but only a grade 1/5 MMT is palpated PT-OP-M Strength Start: 01/30/23 17:35 Freq: Status: Active Protocol: Document 02/07/23 09:45 [facility] (Rec: 02/07/23 11:02 [facility] [id number]) Trunk Strength Trunk Manual Muscle Testing Testing Position Supine Flexion 3 Fair Core Stabilization poor transverse abdominal core stabilization, difficulty with recruitment of the TA PT-OP-Q Treatments Start: 01/30/23 17:35 Freq: Status: Active Protocol: Document 02/07/23 09:45 [facility] (Rec: 02/07/23 10:38 [facility] [id number]) Therapeutic Exercises Supine Exercises supported happy baby with legs on chair Reps/Minutes 1-2 minutes supine ball squeeze with pelvic floor contraction Reps/Minutes 2 x 10 reps hooklying clam shells with resistance Reps/Minutes 3 x 10 reps supine pelvic floor stretch Reps/Minutes hold 1-2 min PT-OP-T Assessment and Plan Start: 01/30/23 17:35 Freq: Status: Active Protocol: Document 02/07/23 09:45 [facility] (Rec: 02/07/23 11:02 [facility] [id number]) Physical Therapy Assessment Rehab Potential Rehabilitation Potential Excellent Evaluation Complexity Number of Personal Factors/Comorbidities 0 Number of Body Systems Impaired 1-2 Clinical Presentation at Evaluation Stable Impairments Impairments Pain,Soft Tissue Mobility, Strength,Tone Other Impairments urinary urge and stress incontinence, nocturia Goals 3 Impairment Pelvic floor weakness with MMT 1/5 for all aspects of the pelvic clock Short Term Goal (STG) Chelsea is able to perform a pelvic floor contraction following full relaxation of her pelvic floor STG Duration 4 weeks Mcfp Goal (LTG) Chelsea demonstrates improved strength of the pelvic floor and has improved her MMT to 3/ 5 or better LTG Duration 12 weeks 2 Impairment Urinary stress and urge incontinence with Chelsea reporting she is leaking 3-4 times per day and wears a maxipad which she changes at least 2 times per day Mcfp Goal (LTG) Chelsea reports a overall reducation in urinary leakage to 1 or less per day LTG Duration 12 weeks 1 Impairment urinary urgency and nocturia with pt waking 3 times per night to void Short Term Goal (STG) Chelsea is educated on pelvic floor relaxation to fully empty her bladder as well as urge deference technique to help reduce frequency STG Duration 4 weeks Mcfp Goal (LTG) Chelsea is able to reduce voids to every 2 hours during the day and is waking only 1 time per night to void LTG Duration 12 weeks Assessment Summary Assessment Chelsea is a 52 year old female referred to physical therapy with chief complaints or urinary urgency, frequency, nocturia, stress incontinence symptoms. Chelsea has a history of lumbar fusion 2016 with ongoing pain since she fell following the surgery. She notes that in the past year her symptoms of urinry incontinence started. She was prescribed estradiol for the vaginal wall and has been using this the past 3 months. She is a former smoker and notes she has relapsed but is trying to quit again. She does note a chronic cough and has a history of COPD. I did talk to her about downward pressure from a cough on her bladder. She also notes her bowel movements have not been the same since her fall. She reports not being able to fully empty her bowels in one setting. Chelsea reports waking 3 times per night to void. With examination today Chelsea is guarded and hypertonic on the left lateral wall of the levator ani. She has difficulty with any pelvic floor contraction and tests 1/ 5 MMT for all cuevas of the levator ani. She was educated today on pelvic floor relaxation and the importance of fully relaxing her pelvic floor in order to fully empty her bladder. She was given information on a squatty potty . I also started her with hip ER and IR exercises to begin working on pelvic floor facilitation and she tolerated this well. Chelsea is a good candidate for Pelvic floor physical therapy Physical Therapy Plan Frequency and Duration Frequency of Treatment 1x/Week Duration of treatment (weeks) 12 Plan of Care Start Date 02/07/23 Plan of Care End Date 05/02/23 Therapeutic Interventions Therapeutic Interventions Home Exercise Program,Manual Therapy,Neuromuscular Re- education,Patient/Caregiver Education,Self-Care/Home Management,Soft Tissue Mobilization,Therapeutic Exercises Modalities Biofeedback Next Visit Focus/Plan Next Note Type Treatment Note Next Visit Plan Begin EMG biofeedback for pelvic floor neuro re- education
--- NOTE | 2023-02-07 11:04 | PT.OPPOC ---
Physical, Occupational & Speech Therapy At [facility] Current Diagnoses Stress incontinence (female) (male) (02/07/23) Pelvic muscle wasting (02/07/23) Nocturia (02/07/23) Urgency of urination (02/07/23) Visit Care Team Role Provider Type Walker Machado MD Family Provider Non-Staff Primary Care Provider Specialty: Internal Medicine Address: [address], [place], [address] Email: Huey Esparza MD Attending Provider Physician Referring Provider Specialty: PUNCHING MACHINE OPERATOR Address: [address], [place], [address] Email: [email or web address] Plan Of Care PT-OP-T Assessment and Plan Start: 01/30/23 17:35 Freq: Status: Active Protocol: Document 02/07/23 09:45 [facility] (Rec: 02/07/23 11:02 [facility] [id number]) Physical Therapy Assessment Rehab Potential Rehabilitation Potential Excellent Evaluation Complexity Number of Personal Factors/Comorbidities 0 Number of Body Systems Impaired 1-2 Clinical Presentation at Evaluation Stable Impairments Impairments Pain,Soft Tissue Mobility, Strength,Tone Other Impairments urinary urge and stress incontinence, nocturia Goals 3 Impairment Pelvic floor weakness with MMT 1/5 for all aspects of the pelvic clock Short Term Goal (STG) Chelsea is able to perform a pelvic floor contraction following full relaxation of her pelvic floor STG Duration 4 weeks Analytical Lab Technician Goal (LTG) Chelsea demonstrates improved strength of the pelvic floor and has improved her MMT to 3/ 5 or better LTG Duration 12 weeks 2 Impairment Urinary stress and urge incontinence with Chelsea reporting she is leaking 3-4 times per day and wears a maxipad which she changes at least 2 times per day Analytical Lab Technician Goal (LTG) Chelsea reports a overall re-education in urinary leakage to 1 or less per day LTG Duration 12 weeks 1 Impairment urinary urgency and nocturia with pt waking 3 times per night to void Short Term Goal (STG) Chelsea is educated on pelvic floor relaxation to fully empty her bladder as well as urge deference technique to help reduce frequency STG Duration 4 weeks Analytical Lab Technician Goal (LTG) Chelsea is able to reduce voids to every 2 hours during the day and is waking only 1 time per night to void LTG Duration 12 weeks Assessment Summary Assessment Chelsea is a 52 year old female referred to physical therapy with chief complaints or urinary urgency, frequency, nocturia, stress incontinence symptoms. Chelsea has a history of lumbar fusion 2016 with ongoing pain since she fell following the surgery. She notes that in the past year her symptoms of urinry incontinence started. She was prescribed estradiol for the vaginal wall and has been using this the past 3 months. She is a former smoker and notes she has relapsed but is trying to quit again. She does note a chronic cough and has a history of COPD. I did talk to her about downward pressure from a cough on her bladder. She also notes her bowel movements have not been the same since her fall. She reports not being able to fully empty her bowels in one setting. Chelsea reports waking 3 times per night to void. With examination today Chelsea is guarded and hypertonic on the left lateral wall of the levator ani. She has difficulty with any pelvic floor contraction and tests 1/ 5 MMT for all cuevas of the levator ani. She was educated today on pelvic floor relaxation and the importance of fully relaxing her pelvic floor in order to fully empty her bladder. She was given information on a squatty potty . I also started her with hip ER and IR exercises to begin working on pelvic floor facilitation and she tolerated this well. Chelsea is a good candidate for Pelvic floor physical therapy Physical Therapy Plan Frequency and Duration Frequency of Treatment 1x/Week Duration of treatment (weeks) 12 Plan of Care Start Date 02/07/23 Plan of Care End Date 05/02/23 Therapeutic Interventions Therapeutic Interventions Home Exercise Program,Manual Therapy,Neuromuscular Re- education,Patient/Caregiver Education,Self-Care/Home Management,Soft Tissue Mobilization,Therapeutic Exercises Modalities Biofeedback Next Visit Focus/Plan Next Note Type Treatment Note Next Visit Plan Begin EMG biofeedback for pelvic floor neuro re- education Plan of Care Dates Plan of Care Start Date 02/07/23 Plan of Care End Date 05/02/23 Electronically Signed by: Sara Padilla, PT 02/07/23 8890 If you are in agreement with this Plan of Care, please return a signed and dated copy. I have reviewed this Plan of Care and certify that the skilled therapy services above are required to meet the patient?s needs. Physician Signature Date Printed Name and Credentials Clinical Instructor Signature Printed Name and Credentials
--- NOTE | 2023-02-27 10:33 | PT.OTN ---
Current Diagnoses Stress incontinence (female) (male) (02/27/23) Pelvic muscle wasting (02/27/23) Nocturia (02/27/23) Urgency of urination (02/27/23) Physical Therapy Treatment Note PT-OP-A Visit Information Start: 01/30/23 17:35 Freq: Status: Active Protocol: Document 02/27/23 09:22 [facility] (Rec: 02/27/23 10:17 [facility] [id number]) Out-Patient Physical Therapy Visit Information Visit Information Visit Type Treatment Note Visit Start Time 09:28 Visit Stop Time 10:13 Total Visit Minutes 45 Visit Number 2 PT-OP-B Current Condition Start: 01/30/23 17:35 Freq: Status: Active Protocol: Document 02/07/23 09:45 [facility] (Rec: 02/07/23 10:20 [facility] [id number]) Current Condition History of Current Condition Onset Date 1 year ago Current Complaints urinary frequency and urgency, nocturia and stress incontinence History of Current Condition pt notes she has to wake up 3 times per night to void and she void frequently during the day emptying her bladder approx 8 times per day. She feels that she empties her bladder fully. She feels her leaking is primarily from urinary stress incontinence. She is wearing pads daily and changes them at least once during the day but does not wear them at night. History of lumbar fusion and she gets steroid and cortisone injections. Her Fusion was January of 2017 at L3-4. A year later she had a fall onto her back. She has never felt the same since. At that time her bowel movements changed to where she is not fully emptying her bowels. She notes a great amount of cramping in her calfs and feet . Hx of 2 vaginal deliveries and 1 . She drinks 5 glasses of water per day sometimes a glass of milk in the evening. Treatment Goals Patient/Caregiver Goals treatment goals include reducing urinary incontinence, urinary urgency and frequency PT-OP-C Subjective Start: 01/30/23 17:35 Freq: Status: Active Protocol: Document 02/27/23 09:22 [facility] (Rec: 02/27/23 10:17 [facility] [id number]) OP-PT Subjective Patient Comments Patient Comments pt reports she still has a problem with gluteal substitution when trying to isolate her pelvic floor PT-OP-I Pelvic Floor Start: 01/30/23 17:35 Freq: Status: Active Protocol: Document 02/27/23 09:22 [facility] (Rec: 02/27/23 10:17 [facility] [id number]) Pelvic Floor Assessment Urine Pelvic Floor Surgery No Urinary Symptoms Urge Sensation Other Urinary Symptoms urinary stress and urge incontinence, nocturia Leakage Size Medium Leakage Cause Cough,Urge Leaks Per Day 4 Voiding Frequency hourly Nocturia 3 Pads Used In 24 Hours 2 Urine Pad Type Maxi Pad Pelvic Clock Pelvic Clock 12-3 Guarding Pelvic Clock 3-6 Guarding SEMG (uV) Baseline 2.5 10 Second Contraction 4.5 Contraction Ability Voluntary Contraction Weak Voluntary Relaxation Weak Manual Muscle Testing Left 1 Manual Muscle Testing Right 1 Manual Muscle Testing Anterior 1 Manual Muscle Testing Posterior 1 Muscle Endurance (Seconds) 2 Comments Pelvic Floor Comments 17.3 max, pt able to relax back to 2.5 with contractions on EMG biofeedback with supine adductor assist her average was 8.9 and max of 14.9 PT-OP-M Strength Start: 01/30/23 17:35 Freq: Status: Active Protocol: Document 02/07/23 09:45 [facility] (Rec: 02/07/23 11:02 [facility] [id number]) Trunk Strength Trunk Manual Muscle Testing Testing Position Supine Flexion 3 Fair Core Stabilization poor transverse abdominal core stabilization, difficulty with recruitment of the TA PT-OP-Q Treatments Start: 01/30/23 17:35 Freq: Status: Active Protocol: Document 02/27/23 09:22 [facility] (Rec: 02/27/23 10:17 [facility] [id number]) Therapeutic Exercises Supine Exercises pelvic floor isolations Reps/Minutes x 10 reps holding 10 sec and resting 10 sec supported happy baby with legs on chair Reps/Minutes 1-2 minutes supine ball squeeze with pelvic floor contraction Reps/Minutes 2 x 10 reps hooklying clam shells with resistance Reps/Minutes 3 x 10 reps supine pelvic floor stretch Reps/Minutes hold 1-2 min Self-Care/Home Management Treatment Education Patient Education Home Exercise Program Other Education bladder retraining and urge deference technique pt's HEP was reviewed and she was given a handout on bladder retraining PT-OP-T Assessment and Plan Start: 01/30/23 17:35 Freq: Status: Active Protocol: Document 02/27/23 09:22 [facility] (Rec: 02/27/23 10:17 [facility] [id number]) Physical Therapy Assessment Goals 3 Impairment Pelvic floor weakness with MMT 1/5 for all aspects of the pelvic clock Short Term Goal (STG) Chelsea is able to perform a pelvic floor contraction following full relaxation of her pelvic floor STG Duration 4 weeks Residential Goal (LTG) Chelsea demonstrates improved strength of the pelvic floor and has improved her MMT to 3/ 5 or better LTG Duration 12 weeks 2 Impairment Urinary stress and urge incontinence with Chelsea reporting she is leaking 3-4 times per day and wears a maxipad which she changes at least 2 times per day Malariologist Goal (LTG) Chelsea reports a overall reducation in urinary leakage to 1 or less per day LTG Duration 12 weeks 1 Impairment urinary urgency and nocturia with pt waking 3 times per night to void Short Term Goal (STG) Chelsea is educated on pelvic floor relaxation to fully empty her bladder as well as urge deference technique to help reduce frequency STG Duration 4 weeks Malariologist Goal (LTG) Chelsea is able to reduce voids to every 2 hours during the day and is waking only 1 time per night to void LTG Duration 12 weeks Assessment Summary Assessment Chelsea was able to isolate her pelvic floor on EMG biofeedback today however does much better with ball squeeze for assistance. She was educated in urge deference technique and bladder retraining today as well. Pt was given quick contractions to work on when she has a urge and we added in isolations today as well for long holds. She was educated to continue with her stretches to help relax the pelvic floor. Resting tone stayed at 2.5 uv today Physical Therapy Plan Frequency and Duration Frequency of Treatment 1x/Week Duration of treatment (weeks) 12 Plan of Care Start Date 02/07/23 Plan of Care End Date 05/02/23 Therapeutic Interventions Therapeutic Interventions Home Exercise Program,Manual Therapy,Neuromuscular Re- education,Patient/Caregiver Education,Self-Care/Home Management,Soft Tissue Mobilization,Therapeutic Exercises Modalities Biofeedback Next Visit Focus/Plan Next Note Type Treatment Note Next Visit Plan continue with EMG biofeedback, begin lower abdominal facilitation and training
--- NOTE | 2023-03-29 14:10 | PT.OTN ---
Current Diagnoses Stress incontinence (female) (male) (03/29/23) Pelvic muscle wasting (03/29/23) Nocturia (03/29/23) Urgency of urination (03/29/23) Physical Therapy Treatment Note PT-OP-A Visit Information Start: 01/30/23 17:35 Freq: Status: Active Protocol: Document 03/29/23 13:13 [facility] (Rec: 03/29/23 14:10 [facility] [id number]) Out-Patient Physical Therapy Visit Information Visit Information Visit Type Treatment Note Visit Start Time 13:17 Visit Stop Time 14:00 Total Visit Minutes 43 Visit Number 3 PT-OP-B Current Condition Start: 01/30/23 17:35 Freq: Status: Active Protocol: Document 02/07/23 09:45 [facility] (Rec: 02/07/23 10:20 [facility] [id number]) Current Condition History of Current Condition Onset Date 1 year ago Current Complaints urinary frequency and urgency, nocturia and stress incontinence History of Current Condition pt notes she has to wake up 3 times per night to void and she void frequently during the day emptying her bladder approx 8 times per day. She feels that she empties her bladder fully. She feels her leaking is primarily from urinary stress incontinence. She is wearing pads daily and changes them at least once during the day but does not wear them at night. History of lumbar fusion and she gets steroid and cortisone injections. Her Fusion was January of 2017 at L3-4. A year later she had a fall onto her back. She has never felt the same since. At that time her bowel movements changed to where she is not fully emptying her bowels. She notes a great amount of cramping in her calfs and feet . Hx of 2 vaginal deliveries and 1 . She drinks 5 glasses of water per day sometimes a glass of milk in the evening. Treatment Goals Patient/Caregiver Goals treatment goals include reducing urinary incontinence, urinary urgency and frequency PT-OP-C Subjective Start: 01/30/23 17:35 Freq: Status: Active Protocol: Document 03/29/23 13:13 [facility] (Rec: 03/29/23 14:10 [facility] [id number]) OP-PT Subjective Patient Comments Patient Comments pt notes she sees a little change and when she coughs, she is still feeling the urge to void 2-3 times per day PT-OP-I Pelvic Floor Start: 01/30/23 17:35 Freq: Status: Active Protocol: Document 02/27/23 09:22 [facility] (Rec: 02/27/23 10:17 [facility] [id number]) Pelvic Floor Assessment Urine Pelvic Floor Surgery No Urinary Symptoms Urge Sensation Other Urinary Symptoms urinary stress and urge incontinence, nocturia Leakage Size Medium Leakage Cause Cough,Urge Leaks Per Day 4 Voiding Frequency hourly Nocturia 3 Pads Used In 24 Hours 2 Urine Pad Type Maxi Pad Pelvic Clock Pelvic Clock 12-3 Guarding Pelvic Clock 3-6 Guarding SEMG (uV) Baseline 2.5 10 Second Contraction 4.5 Contraction Ability Voluntary Contraction Weak Voluntary Relaxation Weak Manual Muscle Testing Left 1 Manual Muscle Testing Right 1 Manual Muscle Testing Anterior 1 Manual Muscle Testing Posterior 1 Muscle Endurance (Seconds) 2 Comments Pelvic Floor Comments 17.3 max, pt able to relax back to 2.5 with contractions on EMG biofeedback with supine adductor assist her average was 8.9 and max of 14.9 PT-OP-M Strength Start: 01/30/23 17:35 Freq: Status: Active Protocol: Document 02/07/23 09:45 [facility] (Rec: 02/07/23 11:02 [facility] [id number]) Trunk Strength Trunk Manual Muscle Testing Testing Position Supine Flexion 3 Fair Core Stabilization poor transverse abdominal core stabilization, difficulty with recruitment of the TA PT-OP-Q Treatments Start: 01/30/23 17:35 Freq: Status: Active Protocol: Document 03/29/23 13:13 [facility] (Rec: 03/29/23 14:10 [facility] [id number]) Therapeutic Exercises Supine Exercises templates for coordination and eccentric control Reps/Minutes x 8 min Comments EMG biofeedback templates pelvic floor isolations Reps/Minutes average of a 4 and max of a 6 uv supine ball squeeze with pelvic floor contraction Reps/Minutes x 10 reps Comments 8.5 and max of 16 uv hooklying clam shells with resistance Equipment Used level 2 Reps/Minutes 3 x 10 reps PT-OP-T Assessment and Plan Start: 01/30/23 17:35 Freq: Status: Active Protocol: Document 03/29/23 13:13 [facility] (Rec: 03/29/23 14:10 [facility] [id number]) Physical Therapy Assessment Goals 3 Impairment Pelvic floor weakness with MMT 1/5 for all aspects of the pelvic clock Short Term Goal (STG) Chelsea is able to perform a pelvic floor contraction following full relaxation of her pelvic floor STG Duration 4 weeks Penitentiary Goal (LTG) Chelsea demonstrates improved strength of the pelvic floor and has improved her MMT to 3/ 5 or better LTG Duration 12 weeks 2 Impairment Urinary stress and urge incontinence with Chelsea reporting she is leaking 3-4 times per day and wears a maxipad which she changes at least 2 times per day Penitentiary Goal (LTG) Chelsea reports a overall reducation in urinary leakage to 1 or less per day LTG Duration 12 weeks 1 Impairment urinary urgency and nocturia with pt waking 3 times per night to void 03/29/23 still walking 2-3 times Short Term Goal (STG) Chelsea is educated on pelvic floor relaxation to fully empty her bladder as well as urge deference technique to help reduce frequency STG Duration 4 weeks Penitentiary Goal (LTG) Chelsea is able to reduce voids to every 2 hours during the day and is waking only 1 time per night to void LTG Duration 12 weeks Assessment Summary Assessment Chelsea is able now to isolate her pelvic floor on her own without adductor assist. She still gets better readings on EMG biofeedback with adductor assit though. She is still elevated with her resting tone . I encouraged her to continue both with her strengthening as well as stretches for home Physical Therapy Plan Frequency and Duration Frequency of Treatment 1x/Week Duration of treatment (weeks) 12 Plan of Care Start Date 02/07/23 Plan of Care End Date 05/02/23 Therapeutic Interventions Therapeutic Interventions Home Exercise Program,Manual Therapy,Neuromuscular Re- education,Patient/Caregiver Education,Self-Care/Home Management,Soft Tissue Mobilization,Therapeutic Exercises Modalities Biofeedback Next Visit Focus/Plan Next Note Type Treatment Note Next Visit Plan continue with EMG biofeedback, begin lower abdominal facilitation and training
--- NOTE | 2023-04-19 11:01 | PT-OP ANOTE ---
pt called after her appointment to let us know she forgot about today, she is scheduled for her next visit and Adan reviewed times with her
--- NOTE | 2023-05-01 13:57 | PT.OTN ---
Current Diagnoses Stress incontinence (female) (male) (05/01/23) Pelvic muscle wasting (05/01/23) Nocturia (05/01/23) Urgency of urination (05/01/23) Physical Therapy Treatment Note PT-OP-A Visit Information Start: 01/30/23 17:35 Freq: Status: Active Protocol: Document 05/01/23 10:31 [facility] (Rec: 05/01/23 11:09 [facility] [id number]) Out-Patient Physical Therapy Visit Information Visit Information Visit Type Treatment Note Visit Start Time 10:31 Visit Stop Time 11:15 Total Visit Minutes 44 Visit Number 4 PT-OP-B Current Condition Start: 01/30/23 17:35 Freq: Status: Active Protocol: Document 02/07/23 09:45 [facility] (Rec: 02/07/23 10:20 [facility] [id number]) Current Condition History of Current Condition Onset Date 1 year ago Current Complaints urinary frequency and urgency, nocturia and stress incontinence History of Current Condition pt notes she has to wake up 3 times per night to void and she void frequently during the day emptying her bladder approx 8 times per day. She feels that she empties her bladder fully. She feels her leaking is primarily from urinary stress incontinence. She is wearing pads daily and changes them at least once during the day but does not wear them at night. History of lumbar fusion and she gets steroid and cortisone injections. Her Fusion was January of 2017 at L3-4. A year later she had a fall onto her back. She has never felt the same since. At that time her bowel movements changed to where she is not fully emptying her bowels. She notes a great amount of cramping in her calfs and feet . Hx of 2 vaginal deliveries and 1 . She drinks 5 glasses of water per day sometimes a glass of milk in the evening. Treatment Goals Patient/Caregiver Goals treatment goals include reducing urinary incontinence, urinary urgency and frequency PT-OP-C Subjective Start: 01/30/23 17:35 Freq: Status: Active Protocol: Document 05/01/23 10:31 [facility] (Rec: 05/01/23 11:09 [facility] [id number]) OP-PT Subjective Patient Comments Patient Comments pt notes she is seeing improvement less leaking still experiencing the urgency Patient Reported Progress Improving PT-OP-I Pelvic Floor Start: 01/30/23 17:35 Freq: Status: Active Protocol: Document 02/27/23 09:22 [facility] (Rec: 02/27/23 10:17 [facility] [id number]) Pelvic Floor Assessment Urine Pelvic Floor Surgery No Urinary Symptoms Urge Sensation Other Urinary Symptoms urinary stress and urge incontinence, nocturia Leakage Size Medium Leakage Cause Cough,Urge Leaks Per Day 4 Voiding Frequency hourly Nocturia 3 Pads Used In 24 Hours 2 Urine Pad Type Maxi Pad Pelvic Clock Pelvic Clock 12-3 Guarding Pelvic Clock 3-6 Guarding SEMG (uV) Baseline 2.5 10 Second Contraction 4.5 Contraction Ability Voluntary Contraction Weak Voluntary Relaxation Weak Manual Muscle Testing Left 1 Manual Muscle Testing Right 1 Manual Muscle Testing Anterior 1 Manual Muscle Testing Posterior 1 Muscle Endurance (Seconds) 2 Comments Pelvic Floor Comments 17.3 max, pt able to relax back to 2.5 with contractions on EMG biofeedback with supine adductor assist her average was 8.9 and max of 14.9 PT-OP-M Strength Start: 01/30/23 17:35 Freq: Status: Active Protocol: Document 02/07/23 09:45 [facility] (Rec: 02/07/23 11:02 [facility] [id number]) Trunk Strength Trunk Manual Muscle Testing Testing Position Supine Flexion 3 Fair Core Stabilization poor transverse abdominal core stabilization, difficulty with recruitment of the TA PT-OP-Q Treatments Start: 01/30/23 17:35 Freq: Status: Active Protocol: Document 05/01/23 10:31 [facility] (Rec: 05/01/23 11:09 [facility] [id number]) Therapeutic Exercises Supine Exercises pelvic floor isolations Reps/Minutes 8.2 uv average and max is 16 uv Comments 4.5 average resting tone initially supine ball squeeze with pelvic floor contraction Reps/Minutes x 10 Comments 10 uv and max 14.3 max hooklying clam shells with resistance Equipment Used level 2 Reps/Minutes 3 x 10 reps Other Exercises kristian pose Reps/Minutes hold 2 min quadruped sidebends Reps/Minutes x 10 reps cat cow Reps/Minutes x 10 reps PT-OP-T Assessment and Plan Start: 01/30/23 17:35 Freq: Status: Active Protocol: Document 05/01/23 10:31 [facility] (Rec: 05/01/23 11:09 [facility] [id number]) Physical Therapy Assessment Goals 3 Impairment Pelvic floor weakness with MMT 1/5 for all aspects of the pelvic clock Short Term Goal (STG) Chelsea is able to perform a pelvic floor contraction following full relaxation of her pelvic floor Good progress STG Duration 4 weeks Chain Mender Goal (LTG) Chelsea demonstrates improved strength of the pelvic floor and has improved her MMT to 3/ 5 or better Good progress LTG Duration 12 weeks 2 Impairment Urinary stress and urge incontinence with Chelsea reporting she is leaking 3-4 times per day and wears a maxipad which she changes at least 2 times per day Fpc Goal (LTG) Chelsea reports a overall reducation in urinary leakage to 1 or less per day Chelsea is down to changing her pad 1 time per day and nociting a little less leakage LTG Duration 12 weeks 1 Impairment urinary urgency and nocturia with pt waking 3 times per night to void Short Term Goal (STG) Chelsea is educated on pelvic floor relaxation to fully empty her bladder as well as urge deference technique to help reduce frequency GOAL MET STG Duration 4 weeks Chain Mender Goal (LTG) Chelsea is able to reduce voids to every 2 hours during the day and is waking only 1 time per night to void 05/01/23 pt is waking up 2 times at night now LTG Duration 12 weeks Assessment Summary Assessment Chelsea has not been since last month. She is making good progress with the ability to isolate her pelvic floor now on her own and she is showing strength gains on EMG biofeedback for her pelvic floor. She does note leakage is slowly improving. She is dealing with a great amount of pain in her low back and right SI joint and this also affects pelvic floor control. I have added in some stretches for her to do for her low back prior to working on pelvic floor at home Chelsea would benefit from continued PT Physical Therapy Plan Frequency and Duration Frequency of Treatment 1x/Week Duration of treatment (weeks) 8 Plan of Care Start Date 05/01/23 Plan of Care End Date 06/26/23 Therapeutic Interventions Therapeutic Interventions Home Exercise Program,Manual Therapy,Neuromuscular Re- education,Patient/Caregiver Education,Self-Care/Home Management,Soft Tissue Mobilization,Therapeutic Exercises Modalities Biofeedback Next Visit Focus/Plan Next Note Type Treatment Note Next Visit Plan continue with EMG biofeedback, begin lower abdominal facilitation and training
--- NOTE | 2023-05-01 13:57 | PT.OPPOC ---
Physical, Occupational & Speech Therapy At [facility] Current Diagnoses Stress incontinence (female) (male) (05/01/23) Pelvic muscle wasting (05/01/23) Nocturia (05/01/23) Urgency of urination (05/01/23) Visit Care Team Role Provider Type Ronnie Delgadillo MD Other Providers Physician Specialty: Orthopedics Orthopedic Surgery Address: [address] [place] [address], [place], [address] Email: [email or web address] Family Provider Non-Staff Primary Care Provider Specialty: Internal Medicine Address: [address] [facility], [place], [address] Email: Huey Esparza MD Attending Provider Physician Referring Provider Specialty: [employer] HELIC[employer]TER Address: [address] [place] [address], [address], [address] Email: [email or web address] Plan Of Care PT-OP-T Assessment and Plan Start: 01/30/23 17:35 Freq: Status: Active Protocol: Document 05/01/23 10:31 [facility] (Rec: 05/01/23 11:09 [facility] [id number]) Physical Therapy Assessment Goals 3 Impairment Pelvic floor weakness with MMT 1/5 for all aspects of the pelvic clock Short Term Goal (STG) Chelsea is able to perform a pelvic floor contraction following full relaxation of her pelvic floor Good progress STG Duration 4 weeks Intermediate Goal (LTG) Chelsea demonstrates improved strength of the pelvic floor and has improved her MMT to 3/ 5 or better Good progress LTG Duration 12 weeks 2 Impairment Urinary stress and urge incontinence with Chelsea reporting she is leaking 3-4 times per day and wears a maxipad which she changes at least 2 times per day Intermediate Goal (LTG) Chelsea reports a overall reducation in urinary leakage to 1 or less per day Chelsea is down to changing her pad 1 time per day and nociting a little less leakage LTG Duration 12 weeks 1 Impairment urinary urgency and nocturia with pt waking 3 times per night to void Short Term Goal (STG) Chelsea is educated on pelvic floor relaxation to fully empty her bladder as well as urge deference technique to help reduce frequency GOAL MET STG Duration 4 weeks Silk Top Hat Body Maker Goal (LTG) Chelsea is able to reduce voids to every 2 hours during the day and is waking only 1 time per night to void 05/01/23 pt is waking up 2 times at night now LTG Duration 12 weeks Assessment Summary Assessment Chelsea has not been since last month. She is making good progress with the ability to isolate her pelvic floor now on her own and she is showing strength gains on EMG biofeedback for her pelvic floor. She does note leakage is slowly improving. She is dealing with a great amount of pain in her low back and right SI joint and this also affects pelvic floor control. I have added in some stretches for her to do for her low back prior to working on pelvic floor at home Chelsea would benefit from continued PT Physical Therapy Plan Frequency and Duration Frequency of Treatment 1x/Week Duration of treatment (weeks) 8 Plan of Care Start Date 05/01/23 Plan of Care End Date 06/26/23 Therapeutic Interventions Therapeutic Interventions Home Exercise Program,Manual Therapy,Neuromuscular Re- education,Patient/Caregiver Education,Self-Care/Home Management,Soft Tissue Mobilization,Therapeutic Exercises Modalities Biofeedback Next Visit Focus/Plan Next Note Type Treatment Note Next Visit Plan continue with EMG biofeedback, begin lower abdominal facilitation and training Plan of Care Dates Plan of Care Start Date 05/01/23 Plan of Care End Date 06/26/23 Electronically Signed by: Sara Padilla, PT 05/01/23 [id number] If you are in agreement with this Plan of Care, please return a signed and dated copy. I have reviewed this Plan of Care and certify that the skilled therapy services above are required to meet the patient?s needs. Physician Signature Date Printed Name and Credentials Clinical Instructor Signature Printed Name and Credentials
--- NOTE | 2023-05-08 11:15 | PT.OTN ---
Current Diagnoses Stress incontinence (female) (male) (05/08/23) Pelvic muscle wasting (05/08/23) Nocturia (05/08/23) Urgency of urination (05/08/23) Physical Therapy Treatment Note PT-OP-A Visit Information Start: 01/30/23 17:35 Freq: Status: Active Protocol: Document 05/08/23 10:30 [facility] (Rec: 05/08/23 11:14 [facility] [id number]) Out-Patient Physical Therapy Visit Information Visit Information Visit Type Treatment Note Visit Start Time 10:30 Visit Stop Time 11:15 Total Visit Minutes 45 Visit Number 5 PT-OP-B Current Condition Start: 01/30/23 17:35 Freq: Status: Active Protocol: Document 02/07/23 09:45 [facility] (Rec: 02/07/23 10:20 [facility] [id number]) Current Condition History of Current Condition Onset Date 1 year ago Current Complaints urinary frequency and urgency, nocturia and stress incontinence History of Current Condition pt notes she has to wake up 3 times per night to void and she void frequently during the day emptying her bladder approx 8 times per day. She feels that she empties her bladder fully. She feels her leaking is primarily from urinary stress incontinence. She is wearing pads daily and changes them at least once during the day but does not wear them at night. History of lumbar fusion and she gets steroid and cortisone injections. Her Fusion was January of 2017 at L3-4. A year later she had a fall onto her back. She has never felt the same since. At that time her bowel movements changed to where she is not fully emptying her bowels. She notes a great amount of cramping in her calfs and feet . Hx of 2 vaginal deliveries and 1 . She drinks 5 glasses of water per day sometimes a glass of milk in the evening. Treatment Goals Patient/Caregiver Goals treatment goals include reducing urinary incontinence, urinary urgency and frequency PT-OP-C Subjective Start: 01/30/23 17:35 Freq: Status: Active Protocol: Document 05/08/23 10:30 [facility] (Rec: 05/08/23 11:14 [facility] [id number]) OP-PT Subjective Patient Comments Patient Comments she is still having the urgency but not as frequent as she was before, leaking is not as much PT-OP-I Pelvic Floor Start: 01/30/23 17:35 Freq: Status: Active Protocol: Document 02/27/23 09:22 [facility] (Rec: 02/27/23 10:17 [facility] [id number]) Pelvic Floor Assessment Urine Pelvic Floor Surgery No Urinary Symptoms Urge Sensation Other Urinary Symptoms urinary stress and urge incontinence, nocturia Leakage Size Medium Leakage Cause Cough,Urge Leaks Per Day 4 Voiding Frequency hourly Nocturia 3 Pads Used In 24 Hours 2 Urine Pad Type Maxi Pad Pelvic Clock Pelvic Clock 12-3 Guarding Pelvic Clock 3-6 Guarding SEMG (uV) Baseline 2.5 10 Second Contraction 4.5 Contraction Ability Voluntary Contraction Weak Voluntary Relaxation Weak Manual Muscle Testing Left 1 Manual Muscle Testing Right 1 Manual Muscle Testing Anterior 1 Manual Muscle Testing Posterior 1 Muscle Endurance (Seconds) 2 Comments Pelvic Floor Comments 17.3 max, pt able to relax back to 2.5 with contractions on EMG biofeedback with supine adductor assist her average was 8.9 and max of 14.9 PT-OP-M Strength Start: 01/30/23 17:35 Freq: Status: Active Protocol: Document 02/07/23 09:45 [facility] (Rec: 02/07/23 11:02 [facility] [id number]) Trunk Strength Trunk Manual Muscle Testing Testing Position Supine Flexion 3 Fair Core Stabilization poor transverse abdominal core stabilization, difficulty with recruitment of the TA PT-OP-Q Treatments Start: 01/30/23 17:35 Freq: Status: Active Protocol: Document 05/08/23 10:30 [facility] (Rec: 05/08/23 11:14 [facility] [id number]) Therapeutic Exercises Supine Exercises templates for coordination and eccentric control Reps/Minutes x 8 min Comments EMG biofeedback templates pelvic floor isolations Reps/Minutes 9.8 uv average and max 16.7 Comments 4.5 average resting tone initially supported happy baby with legs on chair Reps/Minutes 1-2 minutes Comments able to hold legs supine ball squeeze with pelvic floor contraction Reps/Minutes x 10 Comments 13.5 uv and max 25.5 max hooklying clam shells with resistance Equipment Used level 2 Reps/Minutes 3 x 10 reps supine pelvic floor stretch Reps/Minutes hold 1-2 min Other Exercises kristian pose Reps/Minutes hold 2 min quadruped sidebends Reps/Minutes x 10 reps cat cow Reps/Minutes x 10 reps PT-OP-T Assessment and Plan Start: 01/30/23 17:35 Freq: Status: Active Protocol: Document 05/08/23 10:30 [facility] (Rec: 05/08/23 11:14 [facility] [id number]) Physical Therapy Assessment Goals 3 Impairment Pelvic floor weakness with MMT 1/5 for all aspects of the pelvic clock Short Term Goal (STG) Chelsea is able to perform a pelvic floor contraction following full relaxation of her pelvic floor Good progress STG Duration 4 weeks Alf Goal (LTG) Chelsea demonstrates improved strength of the pelvic floor and has improved her MMT to 3/ 5 or better Good progress LTG Duration 12 weeks 2 Impairment Urinary stress and urge incontinence with Chelsea reporting she is leaking 3-4 times per day and wears a maxipad which she changes at least 2 times per day Alf Goal (LTG) Chelsea reports a overall reducation in urinary leakage to 1 or less per day Chelsea is down to changing her pad 1 time per day and nociting a little less leakage LTG Duration 12 weeks 1 Impairment urinary urgency and nocturia with pt waking 3 times per night to void Short Term Goal (STG) Chelsea is educated on pelvic floor relaxation to fully empty her bladder as well as urge deference technique to help reduce frequency GOAL MET STG Duration 4 weeks Cottonseed Meat Presser Goal (LTG) Chelsea is able to reduce voids to every 2 hours during the day and is waking only 1 time per night to void 05/01/23 pt is waking up 2 times at night now LTG Duration 12 weeks Assessment Summary Assessment Chelsea continues to make progress with pelvic floor strengtening. She is still guarded in her pelvic floor at rest and stretches were reviewed today to help with relaxed awareness. Sidelying position for pelvic floor exercises also seems to help Physical Therapy Plan Frequency and Duration Frequency of Treatment 1x/Week Duration of treatment (weeks) 8 Plan of Care Start Date 05/01/23 Plan of Care End Date 06/26/23 Therapeutic Interventions Therapeutic Interventions Home Exercise Program,Manual Therapy,Neuromuscular Re- education,Patient/Caregiver Education,Self-Care/Home Management,Soft Tissue Mobilization,Therapeutic Exercises Modalities Biofeedback Next Visit Focus/Plan Next Note Type Treatment Note Next Visit Plan continue working on relaxing the pelvic floor at rest and endurance trAINING
--- NOTE | 2023-05-15 11:09 | PT.OTN ---
Current Diagnoses Stress incontinence (female) (male) (05/15/23) Pelvic muscle wasting (05/15/23) Nocturia (05/15/23) Urgency of urination (05/15/23) Physical Therapy Treatment Note PT-OP-A Visit Information Start: 01/30/23 17:35 Freq: Status: Active Protocol: Document 05/15/23 10:32 [facility] (Rec: 05/15/23 11:09 [facility] [id number]) Out-Patient Physical Therapy Visit Information Visit Information Visit Type Treatment Note Visit Start Time 10:30 Visit Stop Time 11:15 Total Visit Minutes 45 Visit Number 6 PT-OP-B Current Condition Start: 01/30/23 17:35 Freq: Status: Active Protocol: Document 02/07/23 09:45 [facility] (Rec: 02/07/23 10:20 [facility] [id number]) Current Condition History of Current Condition Onset Date 1 year ago Current Complaints urinary frequency and urgency, nocturia and stress incontinence History of Current Condition pt notes she has to wake up 3 times per night to void and she void frequently during the day emptying her bladder approx 8 times per day. She feels that she empties her bladder fully. She feels her leaking is primarily from urinary stress incontinence. She is wearing pads daily and changes them at least once during the day but does not wear them at night. History of lumbar fusion and she gets steroid and cortisone injections. Her Fusion was January of 2017 at L3-4. A year later she had a fall onto her back. She has never felt the same since. At that time her bowel movements changed to where she is not fully emptying her bowels. She notes a great amount of cramping in her calfs and feet . Hx of 2 vaginal deliveries and 1 . She drinks 5 glasses of water per day sometimes a glass of milk in the evening. Treatment Goals Patient/Caregiver Goals treatment goals include reducing urinary incontinence, urinary urgency and frequency PT-OP-C Subjective Start: 01/30/23 17:35 Freq: Status: Active Protocol: Document 05/15/23 10:32 [facility] (Rec: 05/15/23 11:09 [facility] [id number]) OP-PT Subjective Patient Comments Patient Comments pt notes she has only been getting up one time per night PT-OP-I Pelvic Floor Start: 01/30/23 17:35 Freq: Status: Active Protocol: Document 02/27/23 09:22 [facility] (Rec: 02/27/23 10:17 [facility] [id number]) Pelvic Floor Assessment Urine Pelvic Floor Surgery No Urinary Symptoms Urge Sensation Other Urinary Symptoms urinary stress and urge incontinence, nocturia Leakage Size Medium Leakage Cause Cough,Urge Leaks Per Day 4 Voiding Frequency hourly Nocturia 3 Pads Used In 24 Hours 2 Urine Pad Type Maxi Pad Pelvic Clock Pelvic Clock 12-3 Guarding Pelvic Clock 3-6 Guarding SEMG (uV) Baseline 2.5 10 Second Contraction 4.5 Contraction Ability Voluntary Contraction Weak Voluntary Relaxation Weak Manual Muscle Testing Left 1 Manual Muscle Testing Right 1 Manual Muscle Testing Anterior 1 Manual Muscle Testing Posterior 1 Muscle Endurance (Seconds) 2 Comments Pelvic Floor Comments 17.3 max, pt able to relax back to 2.5 with contractions on EMG biofeedback with supine adductor assist her average was 8.9 and max of 14.9 PT-OP-M Strength Start: 01/30/23 17:35 Freq: Status: Active Protocol: Document 02/07/23 09:45 [facility] (Rec: 02/07/23 11:02 [facility] [id number]) Trunk Strength Trunk Manual Muscle Testing Testing Position Supine Flexion 3 Fair Core Stabilization poor transverse abdominal core stabilization, difficulty with recruitment of the TA PT-OP-Q Treatments Start: 01/30/23 17:35 Freq: Status: Active Protocol: Document 05/15/23 10:32 [facility] (Rec: 05/15/23 11:09 [facility] [id number]) Therapeutic Exercises Supine Exercises piriformis stretch Reps/Minutes hold 1-2 minutes templates for coordination and eccentric control Reps/Minutes x 8 min Comments EMG biofeedback templates pelvic floor isolations Supine Exercise Name resting tone 3 uv initially Reps/Minutes 10 uv Comments 4.5 average resting tone initially supported happy baby with legs on chair Reps/Minutes 1-2 minutes Comments able to hold legs supine ball squeeze with pelvic floor contraction Reps/Minutes x 10 Comments 13.5 uv and max 25.5 max hooklying clam shells with resistance Equipment Used level 2 Reps/Minutes 3 x 10 reps supine pelvic floor stretch Reps/Minutes hold 1-2 min Other Exercises kristian pose Reps/Minutes hold 2 min quadruped sidebends Reps/Minutes x 10 reps cat cow Reps/Minutes x 10 reps PT-OP-T Assessment and Plan Start: 01/30/23 17:35 Freq: Status: Active Protocol: Document 05/15/23 10:32 [facility] (Rec: 05/15/23 11:09 [facility] [id number]) Physical Therapy Assessment Assessment Summary Assessment today the resting tone of the pelvic floor was decreased to 3 uv. I had added in piriformis and hamstring stretches and we did these first along with Chelsea's other stretches and this seemed to make a difference in her resting tone today Physical Therapy Plan Frequency and Duration Frequency of Treatment 1x/Week Duration of treatment (weeks) 8 Plan of Care Start Date 05/01/23 Plan of Care End Date 06/26/23 Next Visit Focus/Plan Next Note Type Treatment Note Next Visit Plan continue working on relaxing the pelvic floor at rest and endurance trAINING
--- NOTE | 2023-06-12 16:13 | PT.OTN ---
Current Diagnoses Stress incontinence (female) (male) (06/12/23) Pelvic muscle wasting (06/12/23) Nocturia (06/12/23) Urgency of urination (06/12/23) Physical Therapy Treatment Note PT-OP-A Visit Information Start: 01/30/23 17:35 Freq: Status: Active Protocol: Document 06/12/23 11:18 [facility] (Rec: 06/12/23 11:56 [facility] [id number]) Out-Patient Physical Therapy Visit Information Visit Information Visit Type Progress Note Visit Start Time 11:15 Visit Stop Time 12:00 Total Visit Minutes 45 Visit Number 7 PT-OP-B Current Condition Start: 01/30/23 17:35 Freq: Status: Active Protocol: Document 02/07/23 09:45 [facility] (Rec: 02/07/23 10:20 [facility] [id number]) Current Condition History of Current Condition Onset Date 1 year ago Current Complaints urinary frequency and urgency, nocturia and stress incontinence History of Current Condition pt notes she has to wake up 3 times per night to void and she void frequently during the day emptying her bladder approx 8 times per day. She feels that she empties her bladder fully. She feels her leaking is primarily from urinary stress incontinence. She is wearing pads daily and changes them at least once during the day but does not wear them at night. History of lumbar fusion and she gets steroid and cortisone injections. Her Fusion was January of 2017 at L3-4. A year later she had a fall onto her back. She has never felt the same since. At that time her bowel movements changed to where she is not fully emptying her bowels. She notes a great amount of cramping in her calfs and feet . Hx of 2 vaginal deliveries and 1 . She drinks 5 glasses of water per day sometimes a glass of milk in the evening. Treatment Goals Patient/Caregiver Goals treatment goals include reducing urinary incontinence, urinary urgency and frequency PT-OP-C Subjective Start: 01/30/23 17:35 Freq: Status: Active Protocol: Document 06/12/23 11:18 [facility] (Rec: 06/12/23 11:56 [facility] [id number]) OP-PT Subjective Patient Comments Patient Comments Chelsea was sick for over a week with the flu, she notes her bladder did okay and not too bad, PT-OP-I Pelvic Floor Start: 01/30/23 17:35 Freq: Status: Active Protocol: Document 02/27/23 09:22 [facility] (Rec: 02/27/23 10:17 [facility] [id number]) Pelvic Floor Assessment Urine Pelvic Floor Surgery No Urinary Symptoms Urge Sensation Other Urinary Symptoms urinary stress and urge incontinence, nocturia Leakage Size Medium Leakage Cause Cough,Urge Leaks Per Day 4 Voiding Frequency hourly Nocturia 3 Pads Used In 24 Hours 2 Urine Pad Type Maxi Pad Pelvic Clock Pelvic Clock 12-3 Guarding Pelvic Clock 3-6 Guarding SEMG (uV) Baseline 2.5 10 Second Contraction 4.5 Contraction Ability Voluntary Contraction Weak Voluntary Relaxation Weak Manual Muscle Testing Left 1 Manual Muscle Testing Right 1 Manual Muscle Testing Anterior 1 Manual Muscle Testing Posterior 1 Muscle Endurance (Seconds) 2 Comments Pelvic Floor Comments 17.3 max, pt able to relax back to 2.5 with contractions on EMG biofeedback with supine adductor assist her average was 8.9 and max of 14.9 PT-OP-M Strength Start: 01/30/23 17:35 Freq: Status: Active Protocol: Document 02/07/23 09:45 [facility] (Rec: 02/07/23 11:02 [facility] [id number]) Trunk Strength Trunk Manual Muscle Testing Testing Position Supine Flexion 3 Fair Core Stabilization poor transverse abdominal core stabilization, difficulty with recruitment of the TA PT-OP-Q Treatments Start: 01/30/23 17:35 Freq: Status: Active Protocol: Document 06/12/23 11:18 [facility] (Rec: 06/12/23 11:56 [facility] [id number]) Therapeutic Exercises Supine Exercises supine bridge Reps/Minutes x 15 reps pelvic floor isolations Supine Exercise Name 4.5 uv resting tone Reps/Minutes 10 Comments 7.8 uv average and max PT-OP-T Assessment and Plan Start: 01/30/23 17:35 Freq: Status: Active Protocol: Document 06/12/23 11:18 [facility] (Rec: 06/12/23 11:56 [facility] [id number]) Physical Therapy Assessment Goals 3 LTG Duration 12 weeks 2 Impairment Urinary stress and urge incontinence with Chelsea reporting she is leaking 3-4 times per day and wears a maxipad which she changes at least 2 times per day Hip Hop Performers Goal (LTG) Chelsea reports a overall reducation in urinary leakage to 1 or less per day Chelsea is now wearing her pad all day now. She only feels leakage every other day or so. She finds herself being able to cough and hold it. LTG Duration 12 weeks 1 Impairment urinary urgency and nocturia with pt waking 3 times per night to void Short Term Goal (STG) Chelsea is educated on pelvic floor relaxation to fully empty her bladder as well as urge deference technique to help reduce frequency GOAL MET STG Duration 4 weeks Care Home Goal (LTG) Chelsea is able to reduce voids to every 2 hours during the day and is waking only 1 time per night to void 06/12/23 pt is waking up 1-2 times at night now LTG Duration 12 weeks Assessment Summary Assessment Chelsea is making good overall progress and her bladder leakage is decreasing. She is noting now that she is down to 1 pad per day and she can go a day inbetween without leaking. She is also down to waking only 1 sometimes 2 times per night which is great progress. Chelsea would benefit from continued PT Physical Therapy Plan Frequency and Duration Frequency of Treatment 1x/Week Duration of treatment (weeks) 8 Plan of Care Start Date 06/12/23 Plan of Care End Date 08/07/23 Therapeutic Interventions Therapeutic Interventions Home Exercise Program,Manual Therapy,Neuromuscular Re- education,Patient/Caregiver Education,Self-Care/Home Management,Soft Tissue Mobilization,Therapeutic Exercises Modalities Biofeedback Next Visit Focus/Plan Next Visit Plan work on stretches first again next visit as it does help with resting tone then progress pelvic floor stabilization exercises
--- NOTE | 2023-06-12 16:14 | PT.OPPOC ---
Physical, Occupational & Speech Therapy At [facility] Current Diagnoses Stress incontinence (female) (male) (06/12/23) Pelvic muscle wasting (06/12/23) Nocturia (06/12/23) Urgency of urination (06/12/23) Visit Care Team Role Provider Type Ronnie Delgadillo MD Other Providers Physician Specialty: Orthopedics Orthopedic Surgery Address: [address] [place] [address], [place], [address] Email: [email or web address] Machado MD Family Provider Non-Staff Primary Care Provider Specialty: Internal Medicine Address: [address] [facility] [address], [place], [address] Email: Huey Esparza MD Attending Provider Physician Referring Provider Specialty: SMALL BOAT ENGINEER Address: [address] [place] [address], [address], [place], [address] Email: [email or web address] Plan Of Care PT-OP-T Assessment and Plan Start: 01/30/23 17:35 Freq: Status: Active Protocol: Document 06/12/23 11:18 [facility] (Rec: 06/12/23 11:56 [facility] [id number]) Physical Therapy Assessment Goals 3 LTG Duration 12 weeks 2 Impairment Urinary stress and urge incontinence with Chelsea reporting she is leaking 3-4 times per day and wears a maxipad which she changes at least 2 times per day Senior Care Goal (LTG) Chelsea reports a overall reducation in urinary leakage to 1 or less per day Chelsea is now wearing her pad all day now. She only feels leakage every other day or so. She finds herself being able to cough and hold it. LTG Duration 12 weeks 1 Impairment urinary urgency and nocturia with pt waking 3 times per night to void Short Term Goal (STG) Chelsea is educated on pelvic floor relaxation to fully empty her bladder as well as urge deference technique to help reduce frequency GOAL MET STG Duration 4 weeks Senior Care Goal (LTG) Chelsea is able to reduce voids to every 2 hours during the day and is waking only 1 time per night to void 06/12/23 pt is waking up 1-2 times at night now LTG Duration 12 weeks Assessment Summary Assessment Chelsea is making good overall progress and her bladder leakage is decreasing. She is noting now that she is down to 1 pad per day and she can go a day inbetween without leaking. She is also down to waking only 1 sometimes 2 times per night which is great progress. Chelsea would benefit from continued PT Physical Therapy Plan Frequency and Duration Frequency of Treatment 1x/Week Duration of treatment (weeks) 8 Plan of Care Start Date 06/12/23 Plan of Care End Date 08/07/23 Therapeutic Interventions Therapeutic Interventions Home Exercise Program,Manual Therapy,Neuromuscular Re- education,Patient/Caregiver Education,Self-Care/Home Management,Soft Tissue Mobilization,Therapeutic Exercises Modalities Biofeedback Next Visit Focus/Plan Next Visit Plan work on stretches first again next visit as it does help with resting tone then progress pelvic floor stabilization exercises Plan of Care Dates Plan of Care Start Date 06/12/23 Plan of Care End Date 08/07/23 Electronically Signed by: Sara Padilla, PT 06/12/23 [id number] If you are in agreement with this Plan of Care, please return a signed and dated copy. I have reviewed this Plan of Care and certify that the skilled therapy services above are required to meet the patient?s needs. Physician Signature Date Printed Name and Credentials Clinical Instructor Signature Printed Name and Credentials
--- NOTE | 2023-07-10 10:30 | PT.OPDS ---
Current Diagnoses Stress incontinence (female) (male) (07/10/23) Pelvic muscle wasting (07/10/23) Nocturia (07/10/23) Urgency of urination (07/10/23) Visit Care Team Role Provider Type Ronnie Delgadillo MD Other Providers Physician Specialty: Orthopedics Orthopedic Surgery Address: [address] [facility], [place], [address] Email: [email or web address] Walker Machado MD Family Provider Non-Staff Primary Care Provider Specialty: Internal Medicine Address: [address] [facility], [place], [address] Email: Huey Esparza MD Attending Provider Physician Referring Provider Specialty: TUBE SIZER OPERATOR Address: [address] [place] [address], [address], [place], [address] Email: [email or web address] Visit Number Visit Number 7 Discharge Summary PT-OP-B Current Condition Start: 01/30/23 17:35 Freq: Status: Active Protocol: Document 02/07/23 09:45 [facility] (Rec: 02/07/23 10:20 [facility] [id number]) Current Condition History of Current Condition Onset Date 1 year ago Current Complaints urinary frequency and urgency, nocturia and stress incontinence History of Current Condition pt notes she has to wake up 3 times per night to void and she void frequently during the day emptying her bladder approx 8 times per day. She feels that she empties her bladder fully. She feels her leaking is primarily from urinary stress incontinence. She is wearing pads daily and changes them at least once during the day but does not wear them at night. History of lumbar fusion and she gets steroid and cortisone injections. Her Fusion was January of 2017 at L3-4. A year later she had a fall onto her back. She has never felt the same since. At that time her bowel movements changed to where she is not fully emptying her bowels. She notes a great amount of cramping in her calfs and feet . Hx of 2 vaginal deliveries and 1 . She drinks 5 glasses of water per day sometimes a glass of milk in the evening. Treatment Goals Patient/Caregiver Goals treatment goals include reducing urinary incontinence, urinary urgency and frequency PT-OP-C Subjective Start: 01/30/23 17:35 Freq: Status: Active Protocol: Document 06/12/23 11:18 [facility] (Rec: 06/12/23 11:56 [facility] [id number]) OP-PT Subjective Patient Comments Patient Comments Chelsea was sick for over a week with the flu, she notes her bladder did okay and not too bad, PT-OP-I Pelvic Floor Start: 01/30/23 17:35 Freq: Status: Active Protocol: Document 02/27/23 09:22 [facility] (Rec: 02/27/23 10:17 [facility] [id number]) Pelvic Floor Assessment Urine Pelvic Floor Surgery No Urinary Symptoms Urge Sensation Other Urinary Symptoms urinary stress and urge incontinence, nocturia Leakage Size Medium Leakage Cause Cough,Urge Leaks Per Day 4 Voiding Frequency hourly Nocturia 3 Pads Used In 24 Hours 2 Urine Pad Type Maxi Pad Pelvic Clock Pelvic Clock 12-3 Guarding Pelvic Clock 3-6 Guarding SEMG (uV) Baseline 2.5 10 Second Contraction 4.5 Contraction Ability Voluntary Contraction Weak Voluntary Relaxation Weak Manual Muscle Testing Left 1 Manual Muscle Testing Right 1 Manual Muscle Testing Anterior 1 Manual Muscle Testing Posterior 1 Muscle Endurance (Seconds) 2 Comments Pelvic Floor Comments 17.3 max, pt able to relax back to 2.5 with contractions on EMG biofeedback with supine adductor assist her average was 8.9 and max of 14.9 PT-OP-M Strength Start: 01/30/23 17:35 Freq: Status: Active Protocol: Document 02/07/23 09:45 [facility] (Rec: 02/07/23 11:02 [facility] [id number]) Trunk Strength Trunk Manual Muscle Testing Testing Position Supine Flexion 3 Fair Core Stabilization poor transverse abdominal core stabilization, difficulty with recruitment of the TA PT-OP-T Assessment and Plan Start: 01/30/23 17:35 Freq: Status: Active Protocol: Document 07/10/23 09:54 [facility] (Rec: 07/10/23 10:30 [facility] [id number]) Physical Therapy Assessment Goals 3 Impairment Pelvic floor weakness with MMT 1/5 for all aspects of the pelvic clock LTG Duration 12 weeks 2 Impairment Urinary stress and urge incontinence with Chelsea reporting she is leaking 3-4 times per day and wears a maxipad which she changes at least 2 times per day Penitentiary Goal (LTG) Chelsea reports a overall reducation in urinary leakage to 1 or less per day IF there is any leakage at all it is with a cough, she is still wearing a pad just in case LTG Duration 12 weeks 1 Impairment urinary urgency and nocturia with pt waking 3 times per night to void Short Term Goal (STG) Chelsea is educated on pelvic floor relaxation to fully empty her bladder as well as urge deference technique to help reduce frequency GOAL MET STG Duration 4 weeks Penitentiary Goal (LTG) Chelsea is able to reduce voids to every 2 hours during the day and is waking only 1 time per night to void 06/12/23 pt is waking up 1-2 times at night now LTG Duration 12 weeks Assessment Summary Assessment Chelsea is making good overall progress and her bladder leakage is decreasing. She is noting now that she is down to 1 pad per day and she can go a day inbetween without leaking. She is also down to waking only 1 sometimes 2 times per night which is great progress. This was her last visit in PT and she has doubled her strength on EMG biofeedback. SHe will be discharged from PT at this time. Physical Therapy Plan Discharge Physical Therapy Discharge Reasons No Longer Attending PT Discharge Comments Chelsea has done well with PT and is independent with her HEP. She notes decreased leakage overall. She will be discharged at this time.
== END 2023-07-11 13:30 | disposition home or self-care (01) ==
LOC: PHYS 09:45
PROVIDERS: Family Provider Internal Medicine; PCP Internal Medicine; Referring Provider Obstetrics & Gynecology; Visit Provider Obstetrics & Gynecology
DX: N39.3 Stress incontinence (female) (male) (principal); N81.84 Pelvic muscle wasting; R35.1 Nocturia; R39.15 Urgency of urination
CPT/HCPCS: 97110; 97161; 97535

== ENCOUNTER → 2024-02-07 15:36 | Outpatient (CLI) | payer MEDICARE, MEDICAID, SELFPAY ==
--- NOTE | 2024-02-07 15:38 | DI.RAD.S_ITS ---
PROCEDURE: XR RIBS RT 2V INDICATIONS: Right rib pain x 2 weeks TECHNIQUE: 2 views of the ribs were acquired. COMPARISON: None. FINDINGS: Surgical changes and devices: Right upper quadrant surgical clips. Partially visualized lumbar spine hardware.. Bones and chest wall: No fractures or dislocations. No suspicious bony lesions. Overlying soft tissues appear unremarkable. Lungs and pleura: The visualized lung appears clear. No pleural effusions or pneumothorax are visible. IMPRESSION: No displaced rib fracture. Dictated by: Juan Jose Devine M.D. on 02/07/2024 at 17:15 Approved by: Juan Jose Devine M.D. on 02/07/2024 at 17:16
== END ==
PROVIDERS: Family Provider Internal Medicine; PCP Internal Medicine; Referring Provider Family Medicine; Visit Provider Family Medicine
DX: R07.81 Pleurodynia (principal)
CPT/HCPCS: 71100

== ENCOUNTER → 2024-11-26 10:39 | Outpatient (CLI) | payer MEDICARE, MEDICAID, SELFPAY ==
--- NOTE | 2024-11-26 10:41 | DI.RAD.S_ITS ---
PROCEDURE: XR LUMBAR SPINE MIN 4V INDICATIONS: BACK PAIN TECHNIQUE: 5 views of the lumbar spine were acquired, including bilateral oblique views. COMPARISON: None. FINDINGS: Bones: 5 nonrib-bearing vertebrae are present. Patient is status post posterior fusion at L3-4 level with surgical hardware in place. There is normal alignment. No evidence of hardware loosening or failure. No vertebral body compression fractures. Mild degenerative endplate changes are noted throughout rest of the lumbar spine. No suspicious bony lesions. Soft tissues: Overlying bowel gas pattern is normal. No suspicious soft tissue calcifications. Oblique images: No pars defects. Bilateral bony foraminal stenosis at L4-5 and L5-S1 levels are seen. IMPRESSION: 1. Post fusion changes at L3-4 level. No acute compression fracture. No gross hardware loosening or failure. 2. Degenerative disc disease in rest of the lumbar spine with suggestion of bilateral bony foraminal stenosis at L4-5 and L5-S1 levels. Dictated by: Hood Khan M.D. on 11/26/2024 at 11:32 Approved by: Hood Khan M.D. on 11/26/2024 at 11:34
== END ==
PROVIDERS: Family Provider Internal Medicine; PCP Internal Medicine; Referring Provider Physical Medicine & Rehabilitation; Visit Provider Physical Medicine & Rehabilitation
DX: M51.369 Other intervertebral disc degeneration, lumbar region without mention of lumbar back pain or lower extremity pain (principal); M54.9 Dorsalgia, unspecified; G89.29 Other chronic pain; Z98.1 Arthrodesis status
CPT/HCPCS: 72110

== ENCOUNTER 2024-12-04 10:08 | Outpatient (CLI) | payer MEDICARE, MEDICAID, SELFPAY ==
[2024-12-04] VITALS (8 sets, daily range): BP systolic 113–154; BP diastolic 65–93; PULSE 56–73; RESP 13–16; TEMP 36.7; O2SAT 94–100
[2024-12-04] MEDS: MIDAZOLAM 2 MG/2 ML VIAL IV (10:59)
[2024-12-04] MEDS: DEXAMETHASONE 10 MG/ML VIAL INJ (11:06)
[2024-12-04] MEDS: BETAMETHASONE 30 MG/5 ML MDV 12 MG INJ (11:07)
[2024-12-04] MEDS: iopamidoL 15 ML VIAL 3 ML INJ ×2 (11:07→11:15)
[2024-12-04] MEDS: BUPIVACAINE 0.25% (PF) VIAL 2 ML INJ (11:08)
[2024-12-04] MEDS: BETAMETHASONE 30 MG/5 ML MDV 6 MG INJ (11:16)
--- NOTE | 2024-12-04 11:23 | P.PCN_ITS ---
Date/Time/Diagnoses Date of procedure: 12/04/24 Time of procedure: 11:23 Pre-procedure diagnosis: 1. HNP WITH RADICULAR FEATURES, 2. MULTILEVEL CENTRAL STENOSIS, Post-procedure diagnosis: same Procedure Notes Procedure: 1. FLUOROSCOPICALLY GUIDED CONTRAST CONTROLLED INTERLAMINAR EPIDURAL STEROID INJECTION -L4/5 Indications: Chelsea is referred by Dr. Machado for treatment of Bilateral Foraminal Stenosis R>L LE symptoms. Physician: Sotero St Total Fluoroscopy time (seconds): 15 Total sedation minutes: 19 Complications: none Procedure in detail & Post-procedure care: FINDINGS Multilevel Central Spinal Stenosis with Nerve Root Compression DESCRIPTION OF PROCEDURE Fluoroscopically guided, contrast-controlled L4/5 translaminar epidural steroid injection. Following review of allergy and review of potential side effects and complications, including, but not necessarily limited to, infection, allergic reaction, local tissue breakdown, temporary as well as permanent nerve injury, paralysis, stroke and possible , the patient indicated that the patient understood and agreed to proceed. An informed consent document was signed by the patient, witnessed by a nurse, and placed in the patient's chart. Additionally, other treatment options including modalities, medications, and physical therapy were reviewed with the patient. After review of previous anaesthesic history and IV conscious sedation the patient was deemed safe to proceed with today?s procedure with IV conscious sedation as ASA class II designation. Safety time-out was performed to confirm patient ID, procedure to be performed and site of procedure. IV sedation was accomplished with a combination of 2mg of Versed was administered by the RN after DO order, titrated to patient comfort during the course of the procedure while the patient remained responsive to all verbal commands In the prone position, following sterile prep and drape of the lumbar region, the L4/5 translaminar space was identified fluoroscopically. The skin was anesthetized via a 25-gauge, 1.5inch needle with 1% lidocaine solution. At this point, a 22-gauge short bevel spinal needle was atraumatically introduced and advanced under fluoroscopic guidance into the region of the L4/5 translaminar space. Depth was confirmed on lateral view. Radiological data, including multiple fluoroscopic views of the lumbar spine, reveal a spinal needle at the L4/5 translaminar space. Lateral views then show placement of the needle in the epidural space. Subsequent views show contrast material flowing superiorly and inferiorly in the epidural space. No vascular or intrathecal uptake is observed. At this point, using loss of resistance technique with saline and air, the epidural space was entered. This was confirmed following negative aspiration with injection of approximately 1.5cc of Isovue 200, showing excellent epidural flow without vascular or intrathecal uptake. At this point, 1cc of 1% lidocaine solution combined with 2cc or 10mg of dexamethasone and 6mg betamethasone was injected without incident. The patient tolerated the procedure well without signs or symptoms of complications prior to transfer to the recovery area continued monitoring without incident. The patient was then transferred to the recovery area where they were observed for an appropriate period of time after the injection. The patient reported a VAS score of 8 prior to the procedure and a post- procedure VAS of 1. POST OP INSTRUCTIONS The patient was provided a Pain Log to continue to record their response to the target-specific procedure prior to follow-up visit with their referring physician. Additionally, specific post-injection care instructions and a contact number to our office were provided if concerns arise regarding possible complications associated with the procedure are suspected.
--- NOTE | 2025-01-10 04:08 | ED.BACK ---
HPI - Back Pain/Injury General Source: patient, RN notes reviewed and old records reviewed Related Data Home Medications Medication Instructions Recorded Confirmed albuterol sulfate 90 mcg/actuation 12/09/18 12/01/24 aerosol inhaler epinephrine 0.3 mg/0.3 mL 0.3 mg IM PRN PRN Allergic Reaction 12/09/18 12/01/24 injection, auto-injector tiotropium bromide 18 mcg capsule 1 cap inhalation DAILY 12/01/24 12/01/24 with inhalation device tizanidine 2 mg tablet mg PO 12/01/24 12/01/24 umeclidinium 62.5 mcg/actuation 1 inh inhalation DAILY 12/01/24 12/01/24 blister powder for inhalation (Incruse Ellipta) Previous Rx's Medication Instructions Recorded beclomethasone dipropionate 40 0.04 mg IH BID ##1 12/06/10 mcg/actuation aerosol inhaler (Qvar) diclofenac sodium 1 % topical gel 2 g topical QID pain #100 grams 02/08/24 (Voltaren Arthritis Pain) ibuprofen 800 mg tablet 800 mg PO Q8H #10 tabs 02/08/24 duloxetine 30 mg capsule,delayed 30 mg PO .QHS #60 caps 12/02/24 release (Cymbalta) Allergies Allergy/AdvReac Type Severity Reaction Status Date / Time Penicillins [PENICILLINS] Allergy Unknown Verified 12/01/24 11:32 bee venom protein (honey bee) AdvReac Intermediate Anaphylaxis Verified 12/01/24 11:32 Patient History Medical History Anxiety Chronic back pain Chronic cough COPD (chronic obstructive pulmonary disease) Degenerative disc disease Depression Dysthymic disorder Fibromyalgia Gastroesophageal reflux disease Lumbar stenosis with neurogenic claudication Tobacco dependence Surgical History Anesthesia History of section (~01/2003) History of cholecystectomy (~1985) History of foot surgery (~1984) History of hand surgery (~07/2019) History of surgery on left wrist (~2014) S/P lumbar fusion (~01/2017) Family History Father History of heart disease Pacemaker Grandfather Loneliness Grandmother Stroke Grandfather Stroke alcohol intake frequency: holidays/special occasions only Exam Initial Vital Signs Initial Vital Signs: Vital Signs Temperature 98.0 F 12/04/24 10:20 Pulse Rate 70 12/04/24 10:20 Respiratory Rate 16 12/04/24 10:20 Blood Pressure 113/65 12/04/24 10:20 Pulse Oximetry 95 12/04/24 10:20 Oxygen Delivery Method Room Air 12/04/24 10:20 Course Orders Ordered: Discontinued Medications Betamethasone Acet/Betameth SodPhos (Betamethasone 30 Mg/5 Ml Mdv) 12 mg INJ NOW ONE Stop: 12/04/24 10:51 Last Admin: 12/04/24 11:07 Dose: 12 mg Documented By: RB Betamethasone Acet/Betameth SodPhos (Betamethasone 30 Mg/5 Ml Mdv) 6 mg INJ NOW ONE Stop: 12/04/24 11:17 Last Admin: 12/04/24 11:16 Dose: 6 mg Documented By: RB Bupivacaine HCl (Bupivacaine 0.25% (Pf) Vial) 2 ml INJ NOW ONE Stop: 12/04/24 10:51 Last Admin: 12/04/24 11:08 Dose: 2 ml Documented By: RB Dexamethasone (Dexamethasone 10 Mg/Ml Vial) 10 mg INJ NOW ONE Stop: 12/04/24 10:51 Last Admin: 12/04/24 11:06 Dose: 10 mg Documented By: RB Iopamidol (Iopamidol 15 Ml Vial) 3 ml INJ NOW ONE Stop: 12/04/24 10:51 Last Admin: 12/04/24 11:07 Dose: 3 ml Documented By: RB Iopamidol (Iopamidol 15 Ml Vial) 3 ml INJ NOW ONE Stop: 12/04/24 11:16 Last Admin: 12/04/24 11:15 Dose: 3 ml Documented By: RB Ketorolac Tromethamine (Ketorolac 30 Mg/Ml Vial) 15 mg IV NOW ONE Stop: 01/10/25 04:01 Midazolam HCl (Midazolam 2 Mg/2 Ml Vial) 2 mg IV NOW ONE Stop: 12/04/24 11:04 Last Admin: 12/04/24 10:59 Dose: 2 mg Documented By: MR BLAND - Back Pain/Injury Lab Data Labs: Point of Care Testing Test Results Not applicable Discharge Plan Discharge Plan Patient Disposition: Home Discharge Med Rec/Prescriptions Prescriptions: No Action Qvar 40 MCG/PUFF aerosol 0.04 mg IH BID Qty: 1 3RF diclofenac sodium [Voltaren Arthritis Pain] 1 % gel 2 g topical QID Qty: 100 0RF Rx Instructions: apply to right side over location of pain ibuprofen 800 mg tablet 800 mg PO Q8H Qty: 10 0RF duloxetine [Cymbalta] 30 mg capsule,delayed release(DR/EC) 30 mg PO .QHS Qty: 60 3RF epinephrine 0.3 mg/0.3 mL auto-injector 0.3 mg IM PRN PRN (Reason: Allergic Reaction) albuterol sulfate [Ventolin HFA] 90 mcg/actuation HFA aerosol inhaler tizanidine 2 mg tablet PO Incruse Ellipta 62.5 mcg/actuation blister with device 1 inh inhalation DAILY tiotropium bromide 18 mcg capsule, w/inhalation device 1 cap inhalation DAILY Visit Report/Discharge Packet Referrals: Walker Machado MD [Primary Care Provider] - Discharge Data Primary Care Provider: Walker Machado Attending Provider: Sotero St Discharge Date/Time: 12/04/24 11:33
== END 2024-12-04 11:33 | disposition home or self-care (01) ==
LOC: RAD 10:09
PROVIDERS: Family Provider Internal Medicine; PCP Internal Medicine; Referring Provider Internal Medicine; Visit Provider Physical Medicine & Rehabilitation
DX: M51.16 Intervertebral disc disorders with radiculopathy, lumbar region (principal); M48.061 Spinal stenosis, lumbar region without neurogenic claudication
CPT/HCPCS: 62323; 99152; J0702; J1100; J2250; J3490

== ENCOUNTER 2025-01-10 03:53 | Inpatient (IN) | payer MEDICARE, MEDICAID, SELFPAY ==
[2025-01-10] VITALS (46 sets, daily range): BP systolic 97–157; BP diastolic 51–90; PULSE 54–82; RESP 20–24; TEMP 36.4–36.6; O2SAT 82–99; BMI 25.4
--- NOTE | 2025-01-10 04:15 | ED_ITS ---
HPI - Back Pain/Injury <Cecy Paulino, DO - Last Filed: 01/15/25 03:26> General Chief Complaint: Back Pain/Injury Stated Complaint: back pain Time Seen by Provider: 01/10/25 04:00 Source: patient, EMS, RN notes reviewed and old records reviewed Mode of arrival: EMS Limitations: no limitations History of Present Illness HPI Narrative: 54-year-old female history of prior lumbar fusion, chronic low back pain, with complaint of low back right pelvic and hip pain after falling out of a bed in her 5th and some how rolling down 2 or 3 stairs. Patient did have pain with any attempt at weight-bearing in her right hip area. She denies any pain radiating down her legs. No saddle anesthesia. No loss of bowel or bladder control. No numbness or tingling in her extremities. No weakness of extremities. When lying on her side she does have some pain with the movement at the hip but states it is not as intense. Patient denies any loss of consciousness. She was unsure if she hit her head her main complaint is her back. She denies any neck or midline back pain accept for down low. She notes pain seems to be more at the sacral region and right posterior pelvis towards the hip. Patient does have a history of lumbar fusion in the past. She currently takes duloxetine and tizanidine as daily medications and has not inhaler. She has not allergy to penicillin. Former smoker, occasional alcohol, uses marijuana no recreational drugs otherwise. Patient was able to get up and was weight-bearing on the left leg but it was very painful unable in the right was transported via EMS. She received intranasal fentanyl, ketamine and fentanyl IV. Related Data Home Medications ?Medication ?Instructions ?Recorded ?Confirmed albuterol sulfate 90 mcg/actuation 1 puff inhalation Q 6HR 12/09/18 01/12/25 aerosol inhaler epinephrine 0.3 mg/0.3 mL 0.3 mg IM PRN PRN Allergic R eaction 12/09/18 01/12/25 injection, auto-injector tiotropium bromide 18 mcg capsule 1 cap inhalation LEIF LY 12/01/24 01/12/25 with inhalation device tizanidine 2 mg tablet 2 mg PO BID muscle spasm 01/12/25 umeclidinium 62.5 mcg/actuation 1 inh inhalation DAILY 12/01/24 01/12/25 blister powder for inhalation (Incruse Ellipta) beclomethasone dipropionate 40 0.04 mg IH BID asthma 0 01/12/25 01/12/25 mcg/actuation aerosol inhaler Previous Rx's ?Medication ?Instructions ?Recorded diclofenac sodium 1 % topical gel 2 g topical QID pain #100 grams 02/08/24 (Voltaren Arthritis Pain) duloxetine 30 mg capsule,delayed 30 mg PO .QHS #60 cap s 12/02/24 release (Cymbalta) acetaminophen 325 mg tablet 650 mg (2 x 325 mg) PO Q6H #30 tabs 01/15/25 ibuprofen 400 mg tablet 400 mg PO Q6HR #30 tabs 01/04 lidocaine 5 % topical patch 1 patch topical BEDTIME #3 0 ea 01/15/25 methocarbamol 500 mg tablet 500 mg PO QID #30 tabs 01/04 oxycodone 10 mg tablet 10 mg PO Q3HR PRN Pain, Perlita re 01/15/25 (7-10) #15 tabs Allergies Allergy/AdvReac Type Severity Reaction Status Date / Time Penicillins (PENICILLINS) Allergy Unknown Verified 01/12/25 17:25 bee venom protein (honey bee) AdvReac Intermediate Anaphylaxis Verified 12/01/24 11:32 Review of Systems <Cecy Paulino DO - Last Filed: 01/15/25 03:26> Review of Systems ROS Unobtainable: All systems reviewed & are unremarkable except as noted in HPI and below Patient History <DO Turner Chang Last Filed: 01/15/25 03:26> Medical History Lumbar stenosis with neurogenic claudication Degenerative disc disease Chronic cough Depression Chronic back pain Gastroesophageal reflux disease Dysthymic disorder Anxiety Fibromyalgia Tobacco dependence COPD (chronic obstructive pulmonary disease) Surgical History Anesthesia History of section (~01/2003) History of surgery on left wrist (~2014) History of foot surgery (~1984) History of cholecystectomy (~1985) History of hand surgery (~07/2019) S/P lumbar fusion (~01/2017) Family History Father History of heart disease Pacemaker Grandfather Loneliness Grandmother Stroke Grandfather Stroke Social History household members: significant other and none alcohol intake: current alcohol intake frequency: holidays/special occasions only Exam <Cecy Paulino, - Last Filed: 01/15/25 03:26> Narrative Exam Narrative: GEN: Patient appears in moderate distress. HEAD: No evidence of trauma, no raccoon/Salazar sign. NECK: Nontender, painless range of motion, trachea midline Negative Nexus criteria, no midline line tenderness, distracting injury, altered mental status, neuro deficit, recent EtOH. EYES: PERRLA, EOMI ENT: External inspection normal, trachea is midline, TM's are normal no hemotypanum, Nares are clear, no septal hematoma, no dental or oral injury, airway is normal and with normal occlusion, No bony tenderness RESP: Chest is nontender and has symmetric movement, no ecchymosis, breath sounds are normal no crackles, wheezes or rales CVS: Heart sounds are normal, no murmur noted, No JVD. ABG/GI: Nontender, soft, normal bowel sounds, no distention, no organomegaly, pelvic rock is positive NEURO: Oriented AOx3, neuro is grossly intact, sensation and motor is normal all 4 extremities moving, cranial nerves II through XII are intact, GCS is 15 PSYCH: Normal mood and affect SKIN: Intact, warm and dry, no crepitus and without decubitus BACK: No CVA tenderness, no vertebral tenderness, patient has some tenderness over the right SI region, she was tenderness with pelvic rock or squeeze. She does have some tenderness over the right greater trochanter but does have good range of motion at the right hip and knee. No step-off's, no crepitus EXT: Atraumatic, right hip has some [id number] tenderness. No tenderness over the left. No pedal edema, normal color and temperature, slightly decreased range of motion of the right hip but patient was able to flex and extend at the hip mildly. Initial Vital Signs Initial Vital Signs: Vital Signs Temperature 98 F 01/10/25 04:06 Pulse Rate 75 01/10/25 04:06 Respiratory Rate 20 01/10/25 04:06 Blood Pressure 128/85 01/10/25 04:06 Pulse Oximetry 97 01/10/25 04:06 Oxygen Delivery Method Room Air 01/10/25 04:06 <Montserrat Combs MD - Last Filed: 01/12/25 08:54> Initial Vital Signs Initial Vital Signs: Vital Signs Temperature 98 F 01/10/25 04:06 Pulse Rate 75 01/10/25 04:06 Respiratory Rate 20 01/10/25 04:06 Blood Pressure 128/85 01/10/25 04:06 Pulse Oximetry 97 01/10/25 04:06 Oxygen Delivery Method Room Air 01/10/25 04:06 <Janeth Isaacs MD - Last Filed: 01/12/25 07:12> Initial Vital Signs Initial Vital Signs: Vital Signs Temperature 98 F 01/10/25 04:06 Pulse Rate 75 01/10/25 04:06 Respiratory Rate 20 01/10/25 04:06 Blood Pressure 128/85 01/10/25 04:06 Pulse Oximetry 97 01/10/25 04:06 Oxygen Delivery Method Room Air 01/10/25 04:06 <Terrell Henirquez MD - Last Filed: 01/12/25 05:24> Initial Vital Signs Initial Vital Signs: Vital Signs Temperature 98 F 01/10/25 04:06 Pulse Rate 75 01/10/25 04:06 Respiratory Rate 20 01/10/25 04:06 Blood Pressure 128/85 01/10/25 04:06 Pulse Oximetry 97 01/10/25 04:06 Oxygen Delivery Method Room Air 01/10/25 04:06 Course <Cecy Paulino DO - Last Filed: 01/15/25 03:26> Orders Ordered: Discontinued Medications Acetaminophen (Acetaminophen 325 Mg Tablet) 975 mg PO NOW ONE Stop: 01/10/25 08:08 Last Admin: 01/10/25 08:41 Dose: 975 mg Documented By: DAISY Acetaminophen (Acetaminophen 325 Mg Tablet) 975 mg PO Q6H [facility] Last Admin: 01/11/25 02:15 Dose: Not Given Documented By: Admin: 01/10/25 20:38 Dose: 975 mg Documented By: Admin: 01/10/25 15:40 Dose: 975 mg Documented By: Acetaminophen (Acetaminophen 325 Mg Tablet) 975 mg PO NOW ONE Stop: 01/11/25 11:29 Last Admin: 01/11/25 11:34 Dose: 975 mg Documented By: SMITA Acetaminophen (Acetaminophen 325 Mg Tablet) 650 mg PO Q6H [facility] Last Admin: 01/15/25 10:16 Dose: 650 mg Documented By: Admin: 01/15/25 02:48 Dose: 650 mg Documented By: Admin: 01/14/25 20:24 Dose: 650 mg Documented By: Admin: 01/14/25 14:45 Dose: 650 mg Documented By: Admin: 01/14/25 08:53 Dose: 650 mg Documented By: Admin: 01/14/25 03:55 Dose: 650 mg Documented By: Admin: 01/13/25 21:32 Dose: 650 mg Documented By: Admin: 01/13/25 14:42 Dose: 650 mg Documented By: Admin: 01/13/25 09:04 Dose: 650 mg Documented By: MANPREET Albuterol (Albuterol Hfa Prepack) 1 box MISC DIRECTED ONE Stop: 01/11/25 08:29 Last Admin: 01/11/25 08:35 Dose: 1 box Documented By: SMITA Bacitracin (Bacitracin Oint 0.9 Gm Pckt) 1 applic TOP BID [facility] Bacitracin (Bacitracin Oint 0.9 Gm Pckt) 1 applic TOP BID [facility] Last Admin: 01/15/25 07:54 Dose: 1 applic Documented By: Admin: 01/14/25 20:24 Dose: 1 applic Documented By: Admin: 01/14/25 08:48 Dose: 1 applic Documented By: Admin: 01/13/25 21:32 Dose: 1 applic Documented By: Admin: 01/13/25 09:05 Dose: 1 applic Documented By: Admin: 01/12/25 20:25 Dose: 1 applic Documented By: Admin: 01/12/25 18:34 Dose: 1 applic Documented By: CECILE Duloxetine HCl (Duloxetine 30 Mg Capsule) 30 mg PO BEDTIME [facility] Last Admin: 01/14/25 20:23 Dose: 30 mg Documented By: Admin: 01/13/25 20:24 Dose: 30 mg Documented By: Admin: 01/12/25 20:37 Dose: 30 mg Documented By: Admin: 01/11/25 21:50 Dose: 30 mg Documented By: Admin: 01/10/25 22:29 Dose: 30 mg Documented By: MICHAEL Duloxetine HCl (Duloxetine 30 Mg Capsule) 30 mg PO .QHS [facility] Enoxaparin Sodium (Enoxaparin 40 Mg/0.4 Ml Syringe) 30 mg 0.5 mg/kg (30 mg) SUBCUT BID [facility] Last Admin: 01/10/25 22:29 Dose: 30 mg Documented By: MICHAEL Enoxaparin Sodium (Enoxaparin 30 Mg/0.3 Ml Syringe) 30 mg 0.5 mg/kg (30 mg) SUBCUT DAILY [facility] Last Admin: 01/15/25 07:53 Dose: 30 mg Documented By: Admin: 01/14/25 08:47 Dose: 30 mg Documented By: Admin: 01/13/25 08:39 Dose: 30 mg Documented By: Admin: 01/12/25 09:33 Dose: 30 mg Documented By: Admin: 01/11/25 09:03 Dose: 30 mg Documented By: SMITA Fentanyl (Fentanyl 100 Mcg/2 Ml Inj) 50 mcg IV Q1H PRN PRN Reason: Pain, Severe (7-10) Hydromorphone HCl (Hydromorphone 1 Mg Inj) 1 mg IV Q3H PRN PRN Reason: Pain, Severe (7-10) Last Admin: 01/15/25 10:16 Dose: 1 mg Documented By: Admin: 01/15/25 03:49 Dose: 1 mg Documented By: Admin: 01/14/25 06:16 Dose: 1 mg Documented By: Admin: 01/13/25 20:22 Dose: 1 mg Documented By: Admin: 01/13/25 14:12 Dose: 1 mg Documented By: Admin: 01/13/25 04:08 Dose: 1 mg Documented By: Admin: 01/12/25 20:36 Dose: 1 mg Documented By: Admin: 01/12/25 10:23 Dose: 1 mg Documented By: Admin: 01/12/25 06:25 Dose: 1 mg Documented By: Ibuprofen (Ibuprofen 400 Mg Tablet) 800 mg PO Q8H [facility] Last Admin: 01/10/25 14:35 Dose: 800 mg Documented By: Ibuprofen (Ibuprofen 400 Mg Tablet) 400 mg PO Q6HR [facility] Last Admin: 01/15/25 12:19 Dose: 400 mg Documented By: Admin: 01/15/25 06:00 Dose: Not Given Documented By: Admin: 01/14/25 23:51 Dose: 400 mg Documented By: Admin: 01/14/25 17:05 Dose: 400 mg Documented By: Admin: 01/14/25 12:00 Dose: 400 mg Documented By: Admin: 01/14/25 06:17 Dose: 400 mg Documented By: Admin: 01/14/25 00:12 Dose: 400 mg Documented By: Admin: 01/13/25 18:18 Dose: 400 mg Documented By: Admin: 01/13/25 11:57 Dose: 400 mg Documented By: Admin: 01/13/25 06:00 Dose: 400 mg Documented By: Admin: 01/12/25 23:22 Dose: 400 mg Documented By: Admin: 01/12/25 18:26 Dose: 400 mg Documented By: Admin: 01/12/25 10:55 Dose: 400 mg Documented By: Admin: 01/12/25 07:50 Dose: Not Given Documented By: Admin: 01/12/25 02:30 Dose: 400 mg Documented By: Admin: 01/11/25 19:12 Dose: 400 mg Documented By: Admin: 01/11/25 11:36 Dose: 400 mg Documented By: Admin: 01/11/25 05:22 Dose: 400 mg Documented By: Admin: 01/11/25 03:19 Dose: Not Given Documented By: MICHAEL Ibuprofen (Ibuprofen 400 Mg Tablet) 800 mg PO Q8H [facility] Last Admin: 01/12/25 19:30 Dose: Not Given Documented By: VINH Ipratropium [place] (Ipratropium 0.5 Mg/2.5 Ml Neb) 0.5 mg INH Q4HRWA [facility] Last Admin: 01/12/25 12:34 Dose: 0.5 mg Documented By: Admin: 01/12/25 09:18 Dose: Not Given Documented By: ADOLFO Ipratropium [place] (Ipratropium 0.5 Mg/2.5 Ml Neb) 0.5 mg INH Q2H PRN PRN Reason: Shortness Of Breath Last Admin: 01/14/25 08:48 Dose: 0.5 mg Documented By: Admin: 01/12/25 21:22 Dose: 0.5 mg Documented By: JACOB Ipratropium [place] (Ipratropium 0.5 Mg/2.5 Ml Neb) 0.5 mg INH RTQ4HR ANTOINE Last Admin: 01/15/25 09:32 Dose: Not Given Documented By: Admin: 01/15/25 09:18 Dose: 0.5 mg Documented By: Admin: 01/15/25 08:10 Dose: Not Given Documented By: Admin: 01/15/25 02:55 Dose: Not Given Documented By: Admin: 01/15/25 00:15 Dose: Not Given Documented By: Admin: 01/14/25 20:07 Dose: 0.5 mg Documented By: Admin: 01/14/25 16:55 Dose: Not Given Documented By: Admin: 01/14/25 11:55 Dose: 0.5 mg Documented By: Admin: 01/14/25 08:25 Dose: Not Given Documented By: Admin: 01/14/25 02:57 Dose: Not Given Documented By: Admin: 01/13/25 23:23 Dose: Not Given Documented By: Admin: 01/13/25 18:48 Dose: Not Given Documented By: Admin: 01/13/25 15:21 Dose: 0.5 mg Documented By: Admin: 01/13/25 11:36 Dose: 0.5 mg Documented By: Admin: 01/13/25 07:35 Dose: 0.5 mg Documented By: Admin: 01/13/25 02:25 Dose: Not Given Documented By: Admin: 01/12/25 23:40 Dose: Not Given Documented By: Admin: 01/12/25 21:00 Dose: Not Given Documented By: JACOB Ketorolac Tromethamine (Ketorolac 30 Mg/Ml Vial) 15 mg IV NOW ONE Stop: 01/10/25 04:16 Last Admin: 01/10/25 04:18 Dose: 15 mg Documented By: JACKLYN Ketorolac Tromethamine (Ketorolac 30 Mg/Ml Vial) 15 mg IV NOW ONE Stop: 01/10/25 08:07 Last Admin: 01/10/25 08:44 Dose: 15 mg Documented By: DAISY Lidocaine (Remove Lidocaine Patch) 1 each TOP NOW ONE Stop: 01/10/25 08:07 Last Admin: 01/10/25 09:09 Dose: Not Given Documented By: DAISY Lidocaine (Lidocaine 5% Patch) 1 each TOP NOW ONE Stop: 01/10/25 08:31 Last Admin: 01/10/25 08:45 Dose: 1 each Documented By: DAISY Lidocaine (Lidocaine 5% Patch) 1 each TOP DAILY [facility] Last Admin: 01/14/25 08:47 Dose: 1 each Documented By: Admin: 01/13/25 08:39 Dose: 1 each Documented By: Admin: 01/12/25 09:33 Dose: 1 each Documented By: Admin: 01/11/25 08:35 Dose: 1 each Documented By: SIMTA Lidocaine (Lidocaine 5% Patch) 1 each TOP DAILY [facility] Last Admin: 01/15/25 09:00 Dose: 1 each Documented By: Admin: 01/14/25 12:53 Dose: 1 each Documented By: MANPREET Lidocaine (Remove Lidocaine Patch) 1 each TOP BEDTIME [facility] Last Admin: 01/14/25 21:08 Dose: 1 each Documented By: BRITTON Lorazepam (Lorazepam 1 Mg Tablet) 1 mg PO NOW ONE Stop: 01/12/25 08:51 Last Admin: 01/12/25 09:33 Dose: 1 mg Documented By: CECILE Methocarbamol (Methocarbamol 500 Mg Tablet) 500 mg PO QID [facility] Last Admin: 01/15/25 14:08 Dose: 500 mg Documented By: Admin: 01/15/25 07:53 Dose: 500 mg Documented By: Admin: 01/14/25 20:24 Dose: 500 mg Documented By: Admin: 01/14/25 16:36 Dose: 500 mg Documented By: Admin: 01/14/25 12:02 Dose: 500 mg Documented By: Admin: 01/14/25 08:53 Dose: 500 mg Documented By: Admin: 01/13/25 21:33 Dose: 500 mg Documented By: Admin: 01/13/25 18:18 Dose: 500 mg Documented By: Admin: 01/13/25 13:17 Dose: 500 mg Documented By: Admin: 01/13/25 09:06 Dose: 500 mg Documented By: MANPREET Morphine Sulfate (Morphine 4 Mg/Ml Inj) 4 mg IV NOW ONE Stop: 01/10/25 06:36 Last Admin: 01/10/25 06:42 Dose: 4 mg Documented By: MICHAEL Morphine Sulfate (Morphine 2 Mg/Ml Inj) 2 mg IV NOW ONE Stop: 01/10/25 10:14 Last Admin: 01/10/25 10:51 Dose: 2 mg Documented By: DAISY Morphine Sulfate (Morphine 4 Mg/Ml Inj) 4 mg IV Q6H PRN PRN Reason: Pain, Severe (7-10) Last Admin: 01/10/25 14:34 Dose: 4 mg Documented By: Morphine Sulfate (Morphine 4 Mg/Ml Inj) 4 mg IV NOW ONE Stop: 01/12/25 03:00 Last Admin: 01/12/25 03:05 Dose: 4 mg Documented By: MICHAEL Morphine Sulfate (Morphine 4 Mg/Ml Inj) 4 mg IV Q4HR PRN PRN Reason: Pain, Severe (7-10) Last Admin: 01/12/25 05:01 Dose: 4 mg Documented By: Ondansetron HCl (Ondansetron 4 Mg/2 Ml Inj) 4 mg IV NOW ONE Stop: 01/10/25 06:48 Last Admin: 01/10/25 06:48 Dose: 4 mg Documented By: JACKLYN Ondansetron HCl (Ondansetron 4 Mg/2 Ml Inj) 4 mg IV NOW ONE Stop: 01/10/25 10:14 Last Admin: 01/10/25 10:51 Dose: 4 mg Documented By: DAISY Oxycodone HCl (Oxycodone Ir 5 Mg Tablet) 5 mg PO NOW ONE Stop: 01/10/25 08:08 Last Admin: 01/10/25 08:41 Dose: 5 mg Documented By: DAISY Oxycodone HCl (Oxycodone Ir 5 Mg Tablet) 5 mg PO Q6H [facility] Last Admin: 01/11/25 05:22 Dose: 5 mg Documented By: Admin: 01/10/25 20:38 Dose: 5 mg Documented By: Admin: 01/10/25 14:35 Dose: 5 mg Documented By: Oxycodone HCl (Oxycodone Ir 5 Mg Tablet) 5 mg PO Q4HR PRN PRN Reason: Pain, Moderate (4-6) Last Admin: 01/12/25 02:31 Dose: 5 mg Documented By: Admin: 01/11/25 16:56 Dose: 5 mg Documented By: SMITA Oxycodone HCl (Oxycodone Ir 10 Mg Tablet) 10 mg PO Q3HR PRN PRN Reason: Pain, Severe (7-10) Last Admin: 01/15/25 12:18 Dose: 10 mg Documented By: Admin: 01/15/25 02:48 Dose: 10 mg Documented By: Admin: 01/14/25 23:51 Dose: 10 mg Documented By: Admin: 01/14/25 20:23 Dose: 10 mg Documented By: Admin: 01/14/25 14:45 Dose: 10 mg Documented By: Admin: 01/14/25 12:02 Dose: 10 mg Documented By: Admin: 01/14/25 08:53 Dose: 10 mg Documented By: Admin: 01/14/25 03:55 Dose: 10 mg Documented By: Admin: 01/14/25 00:11 Dose: 10 mg Documented By: Admin: 01/13/25 21:32 Dose: 10 mg Documented By: Admin: 01/13/25 18:19 Dose: 10 mg Documented By: Admin: 01/13/25 11:57 Dose: 10 mg Documented By: Admin: 01/13/25 09:03 Dose: 10 mg Documented By: MANPREET Oxycodone/Acetaminophen (Oxycodone/Acetaminophen 5/325 Tablet) 1 tab PO Q4HR PRN PRN Reason: pain Last Admin: 01/11/25 09:03 Dose: 1 tab Documented By: Admin: 01/10/25 22:29 Dose: 1 tab Documented By: MICHAEL Oxycodone/Acetaminophen (Oxycodone/Acetaminophen 5/325 Tablet) 1 tab PO Q4HR PRN PRN Reason: Pain, Moderate (4-6) Oxycodone/Acetaminophen (Oxycodone/Acetaminophen 5/325 Tablet) 1 tab PO Q4HR PRN PRN Reason: Pain, Moderate (4-6) Last Admin: 01/15/25 07:53 Dose: 1 tab Documented By: Admin: 01/13/25 05:53 Dose: 1 tab Documented By: Admin: 01/12/25 20:21 Dose: 1 tab Documented By: Admin: 01/12/25 16:03 Dose: 1 tab Documented By: Admin: 01/12/25 09:33 Dose: 1 tab Documented By: Admin: 01/12/25 05:29 Dose: 1 tab Documented By: Sodium Chloride (Sodium Chloride 0.9% Flush) 10 ml IV PRN PRN PRN Reason: Flush Last Admin: 01/15/25 03:49 Dose: 10 ml Documented By: Admin: 01/13/25 14:11 Dose: 10 ml Documented By: Admin: 01/13/25 04:08 Dose: 10 ml Documented By: OLESYA Sodium Chloride (Sodium Chloride 0.9% Flush) 10 ml IV BID ANTOINE Last Admin: 01/15/25 07:54 Dose: 10 ml Documented By: Admin: 01/14/25 20:28 Dose: 10 ml Documented By: Admin: 01/14/25 09:13 Dose: 10 ml Documented By: Admin: 01/13/25 20:24 Dose: 10 ml Documented By: Admin: 01/13/25 08:40 Dose: 10 ml Documented By: Admin: 01/12/25 21:04 Dose: 10 ml Documented By: VINH Vital Signs Vital signs: Vital Signs - 8 hr 01/11/25 22:00 Temperature 97.8 F Pulse Rate 66 Respiratory Rate 18 Blood Pressure 131/84 Pulse Oximetry 96 Oxygen Delivery Method Room Air <Montserrat Combs MD - Last Filed: 01/12/25 08:54> Orders Ordered: Discontinued Medications Acetaminophen (Acetaminophen 325 Mg Tablet) 975 mg PO NOW ONE Stop: 01/10/25 08:08 Last Admin: 01/10/25 08:41 Dose: 975 mg Documented By: DAISY Acetaminophen (Acetaminophen 325 Mg Tablet) 975 mg PO Q6H [facility] Last Admin: 01/11/25 02:15 Dose: Not Given Documented By: Admin: 01/10/25 20:38 Dose: 975 mg Documented By: Admin: 01/10/25 15:40 Dose: 975 mg Documented By: Acetaminophen (Acetaminophen 325 Mg Tablet) 975 mg PO NOW ONE Stop: 01/11/25 11:29 Last Admin: 01/11/25 11:34 Dose: 975 mg Documented By: SMITA Acetaminophen (Acetaminophen 325 Mg Tablet) 650 mg PO Q6H [facility] Last Admin: 01/15/25 10:16 Dose: 650 mg Documented By: Admin: 01/15/25 02:48 Dose: 650 mg Documented By: Admin: 01/14/25 20:24 Dose: 650 mg Documented By: Admin: 01/14/25 14:45 Dose: 650 mg Documented By: Admin: 01/14/25 08:53 Dose: 650 mg Documented By: Admin: 01/14/25 03:55 Dose: 650 mg Documented By: Admin: 01/13/25 21:32 Dose: 650 mg Documented By: Admin: 01/13/25 14:42 Dose: 650 mg Documented By: Admin: 01/13/25 09:04 Dose: 650 mg Documented By: MANPREET Albuterol (Albuterol Hfa Prepack) 1 box MISC DIRECTED ONE Stop: 01/11/25 08:29 Last Admin: 01/11/25 08:35 Dose: 1 box Documented By: SMITA Bacitracin (Bacitracin Oint 0.9 Gm Pckt) 1 applic TOP BID [facility] Bacitracin (Bacitracin Oint 0.9 Gm Pckt) 1 applic TOP BID [facility] Last Admin: 01/15/25 07:54 Dose: 1 applic Documented By: Admin: 01/14/25 20:24 Dose: 1 applic Documented By: Admin: 01/14/25 08:48 Dose: 1 applic Documented By: Admin: 01/13/25 21:32 Dose: 1 applic Documented By: Admin: 01/13/25 09:05 Dose: 1 applic Documented By: Admin: 01/12/25 20:25 Dose: 1 applic Documented By: Admin: 01/12/25 18:34 Dose: 1 applic Documented By: CECILE Duloxetine HCl (Duloxetine 30 Mg Capsule) 30 mg PO BEDTIME [facility] Last Admin: 01/14/25 20:23 Dose: 30 mg Documented By: Admin: 01/13/25 20:24 Dose: 30 mg Documented By: Admin: 01/12/25 20:37 Dose: 30 mg Documented By: Admin: 01/11/25 21:50 Dose: 30 mg Documented By: Admin: 01/10/25 22:29 Dose: 30 mg Documented By: MICHAEL Duloxetine HCl (Duloxetine 30 Mg Capsule) 30 mg PO .QHS [facility] Enoxaparin Sodium (Enoxaparin 40 Mg/0.4 Ml Syringe) 30 mg 0.5 mg/kg (30 mg) SUBCUT BID [facility] Last Admin: 01/10/25 22:29 Dose: 30 mg Documented By: MICHAEL Enoxaparin Sodium (Enoxaparin 30 Mg/0.3 Ml Syringe) 30 mg 0.5 mg/kg (30 mg) SUBCUT DAILY [facility] Last Admin: 01/15/25 07:53 Dose: 30 mg Documented By: Admin: 01/14/25 08:47 Dose: 30 mg Documented By: Admin: 01/13/25 08:39 Dose: 30 mg Documented By: Admin: 01/12/25 09:33 Dose: 30 mg Documented By: Admin: 01/11/25 09:03 Dose: 30 mg Documented By: SMITA Fentanyl (Fentanyl 100 Mcg/2 Ml Inj) 50 mcg IV Q1H PRN PRN Reason: Pain, Severe (7-10) Hydromorphone HCl (Hydromorphone 1 Mg Inj) 1 mg IV Q3H PRN PRN Reason: Pain, Severe (7-10) Last Admin: 01/15/25 10:16 Dose: 1 mg Documented By: Admin: 01/15/25 03:49 Dose: 1 mg Documented By: Admin: 01/14/25 06:16 Dose: 1 mg Documented By: Admin: 01/13/25 20:22 Dose: 1 mg Documented By: Admin: 01/13/25 14:12 Dose: 1 mg Documented By: Admin: 01/13/25 04:08 Dose: 1 mg Documented By: Admin: 01/12/25 20:36 Dose: 1 mg Documented By: Admin: 01/12/25 10:23 Dose: 1 mg Documented By: Admin: 01/12/25 06:25 Dose: 1 mg Documented By: Ibuprofen (Ibuprofen 400 Mg Tablet) 800 mg PO Q8H [facility] Last Admin: 01/10/25 14:35 Dose: 800 mg Documented By: Ibuprofen (Ibuprofen 400 Mg Tablet) 400 mg PO Q6HR [facility] Last Admin: 01/15/25 12:19 Dose: 400 mg Documented By: Admin: 01/15/25 06:00 Dose: Not Given Documented By: Admin: 01/14/25 23:51 Dose: 400 mg Documented By: Admin: 01/14/25 17:05 Dose: 400 mg Documented By: Admin: 01/14/25 12:00 Dose: 400 mg Documented By: Admin: 01/14/25 06:17 Dose: 400 mg Documented By: Admin: 01/14/25 00:12 Dose: 400 mg Documented By: Admin: 01/13/25 18:18 Dose: 400 mg Documented By: Admin: 01/13/25 11:57 Dose: 400 mg Documented By: Admin: 01/13/25 06:00 Dose: 400 mg Documented By: Admin: 01/12/25 23:22 Dose: 400 mg Documented By: Admin: 01/12/25 18:26 Dose: 400 mg Documented By: Admin: 01/12/25 10:55 Dose: 400 mg Documented By: Admin: 01/12/25 07:50 Dose: Not Given Documented By: Admin: 01/12/25 02:30 Dose: 400 mg Documented By: Admin: 01/11/25 19:12 Dose: 400 mg Documented By: Admin: 01/11/25 11:36 Dose: 400 mg Documented By: Admin: 01/11/25 05:22 Dose: 400 mg Documented By: Admin: 01/11/25 03:19 Dose: Not Given Documented By: MICHAEL Ibuprofen (Ibuprofen 400 Mg Tablet) 800 mg PO Q8H [facility] Last Admin: 01/12/25 19:30 Dose: Not Given Documented By: VINH Ipratropium [place] (Ipratropium 0.5 Mg/2.5 Ml Neb) 0.5 mg INH [id number] [facility] Last Admin: 01/12/25 12:34 Dose: 0.5 mg Documented By: Admin: 01/12/25 09:18 Dose: Not Given Documented By: ADOLFO Ipratropium [place] (Ipratropium 0.5 Mg/2.5 Ml Neb) 0.5 mg INH Q2H PRN PRN Reason: Shortness Of Breath Last Admin: 01/14/25 08:48 Dose: 0.5 mg Documented By: Admin: 01/12/25 21:22 Dose: 0.5 mg Documented By: JACOB Ipratropium [place] (Ipratropium 0.5 Mg/2.5 Ml Neb) 0.5 mg INH RTQ4HR ANTOINE Last Admin: 01/15/25 09:32 Dose: Not Given Documented By: Admin: 01/15/25 09:18 Dose: 0.5 mg Documented By: Admin: 01/15/25 08:10 Dose: Not Given Documented By: Admin: 01/15/25 02:55 Dose: Not Given Documented By: Admin: 01/15/25 00:15 Dose: Not Given Documented By: Admin: 01/14/25 20:07 Dose: 0.5 mg Documented By: Admin: 01/14/25 16:55 Dose: Not Given Documented By: Admin: 01/14/25 11:55 Dose: 0.5 mg Documented By: Admin: 01/14/25 08:25 Dose: Not Given Documented By: Admin: 01/14/25 02:57 Dose: Not Given Documented By: Admin: 01/13/25 23:23 Dose: Not Given Documented By: Admin: 01/13/25 18:48 Dose: Not Given Documented By: Admin: 01/13/25 15:21 Dose: 0.5 mg Documented By: Admin: 01/13/25 11:36 Dose: 0.5 mg Documented By: Admin: 01/13/25 07:35 Dose: 0.5 mg Documented By: Admin: 01/13/25 02:25 Dose: Not Given Documented By: Admin: 01/12/25 23:40 Dose: Not Given Documented By: Admin: 01/12/25 21:00 Dose: Not Given Documented By: JACOB Ketorolac Tromethamine (Ketorolac 30 Mg/Ml Vial) 15 mg IV NOW ONE Stop: 01/10/25 04:16 Last Admin: 01/10/25 04:18 Dose: 15 mg Documented By: JACKLYN Ketorolac Tromethamine (Ketorolac 30 Mg/Ml Vial) 15 mg IV NOW ONE Stop: 01/10/25 08:07 Last Admin: 01/10/25 08:44 Dose: 15 mg Documented By: DAISY Lidocaine (Remove Lidocaine Patch) 1 each TOP NOW ONE Stop: 01/10/25 08:07 Last Admin: 01/10/25 09:09 Dose: Not Given Documented By: DAISY Lidocaine (Lidocaine 5% Patch) 1 each TOP NOW ONE Stop: 01/10/25 08:31 Last Admin: 01/10/25 08:45 Dose: 1 each Documented By: DAISY Lidocaine (Lidocaine 5% Patch) 1 each TOP DAILY ANTOINE Last Admin: 01/14/25 08:47 Dose: 1 each Documented By: Admin: 01/13/25 08:39 Dose: 1 each Documented By: Admin: 01/12/25 09:33 Dose: 1 each Documented By: Admin: 01/11/25 08:35 Dose: 1 each Documented By: SMITA Lidocaine (Lidocaine 5% Patch) 1 each TOP DAILY ANTOINE Last Admin: 01/15/25 09:00 Dose: 1 each Documented By: Admin: 01/14/25 12:53 Dose: 1 each Documented By: MANPREET Lidocaine (Remove Lidocaine Patch) 1 each TOP BEDTIME ANTOINE Last Admin: 01/14/25 21:08 Dose: 1 each Documented By: BRITTON Lorazepam (Lorazepam 1 Mg Tablet) 1 mg PO NOW ONE Stop: 01/12/25 08:51 Last Admin: 01/12/25 09:33 Dose: 1 mg Documented By: CECILE Methocarbamol (Methocarbamol 500 Mg Tablet) 500 mg PO QID [facility] Last Admin: 01/15/25 14:08 Dose: 500 mg Documented By: Admin: 01/15/25 07:53 Dose: 500 mg Documented By: Admin: 01/14/25 20:24 Dose: 500 mg Documented By: Admin: 01/14/25 16:36 Dose: 500 mg Documented By: Admin: 01/14/25 12:02 Dose: 500 mg Documented By: Admin: 01/14/25 08:53 Dose: 500 mg Documented By: Admin: 01/13/25 21:33 Dose: 500 mg Documented By: Admin: 01/13/25 18:18 Dose: 500 mg Documented By: Admin: 01/13/25 13:17 Dose: 500 mg Documented By: Admin: 01/13/25 09:06 Dose: 500 mg Documented By: MANPREET Morphine Sulfate (Morphine 4 Mg/Ml Inj) 4 mg IV NOW ONE Stop: 01/10/25 06:36 Last Admin: 01/10/25 06:42 Dose: 4 mg Documented By: MICHAEL Morphine Sulfate (Morphine 2 Mg/Ml Inj) 2 mg IV NOW ONE Stop: 01/10/25 10:14 Last Admin: 01/10/25 10:51 Dose: 2 mg Documented By: DAISY Morphine Sulfate (Morphine 4 Mg/Ml Inj) 4 mg IV Q6H PRN PRN Reason: Pain, Severe (7-10) Last Admin: 01/10/25 14:34 Dose: 4 mg Documented By: Morphine Sulfate (Morphine 4 Mg/Ml Inj) 4 mg IV NOW ONE Stop: 01/12/25 03:00 Last Admin: 01/12/25 03:05 Dose: 4 mg Documented By: MICHAEL Morphine Sulfate (Morphine 4 Mg/Ml Inj) 4 mg IV Q4HR PRN PRN Reason: Pain, Severe (7-10) Last Admin: 01/12/25 05:01 Dose: 4 mg Documented By: Ondansetron HCl (Ondansetron 4 Mg/2 Ml Inj) 4 mg IV NOW ONE Stop: 01/10/25 06:48 Last Admin: 01/10/25 06:48 Dose: 4 mg Documented By: JACKLYN Ondansetron HCl (Ondansetron 4 Mg/2 Ml Inj) 4 mg IV NOW ONE Stop: 01/10/25 10:14 Last Admin: 01/10/25 10:51 Dose: 4 mg Documented By: DAISY Oxycodone HCl (Oxycodone Ir 5 Mg Tablet) 5 mg PO NOW ONE Stop: 01/10/25 08:08 Last Admin: 01/10/25 08:41 Dose: 5 mg Documented By: DAISY Oxycodone HCl (Oxycodone Ir 5 Mg Tablet) 5 mg PO Q6H [facility] Last Admin: 01/11/25 05:22 Dose: 5 mg Documented By: Admin: 01/10/25 20:38 Dose: 5 mg Documented By: Admin: 01/10/25 14:35 Dose: 5 mg Documented By: Oxycodone HCl (Oxycodone Ir 5 Mg Tablet) 5 mg PO Q4HR PRN PRN Reason: Pain, Moderate (4-6) Last Admin: 01/12/25 02:31 Dose: 5 mg Documented By: Admin: 01/11/25 16:56 Dose: 5 mg Documented By: SMITA Oxycodone HCl (Oxycodone Ir 10 Mg Tablet) 10 mg PO Q3HR PRN PRN Reason: Pain, Severe (7-10) Last Admin: 01/15/25 12:18 Dose: 10 mg Documented By: Admin: 01/15/25 02:48 Dose: 10 mg Documented By: Admin: 01/14/25 23:51 Dose: 10 mg Documented By: Admin: 01/14/25 20:23 Dose: 10 mg Documented By: Admin: 01/14/25 14:45 Dose: 10 mg Documented By: Admin: 01/14/25 12:02 Dose: 10 mg Documented By: Admin: 01/14/25 08:53 Dose: 10 mg Documented By: Admin: 01/14/25 03:55 Dose: 10 mg Documented By: Admin: 01/14/25 00:11 Dose: 10 mg Documented By: Admin: 01/13/25 21:32 Dose: 10 mg Documented By: Admin: 01/13/25 18:19 Dose: 10 mg Documented By: Admin: 01/13/25 11:57 Dose: 10 mg Documented By: Admin: 01/13/25 09:03 Dose: 10 mg Documented By: MANPREET Oxycodone/Acetaminophen (Oxycodone/Acetaminophen 5/325 Tablet) 1 tab PO Q4HR PRN PRN Reason: pain Last Admin: 01/11/25 09:03 Dose: 1 tab Documented By: Admin: 01/10/25 22:29 Dose: 1 tab Documented By: MICHAEL Oxycodone/Acetaminophen (Oxycodone/Acetaminophen 5/325 Tablet) 1 tab PO Q4HR PRN PRN Reason: Pain, Moderate (4-6) Oxycodone/Acetaminophen (Oxycodone/Acetaminophen 5/325 Tablet) 1 tab PO Q4HR PRN PRN Reason: Pain, Moderate (4-6) Last Admin: 01/15/25 07:53 Dose: 1 tab Documented By: Admin: 01/13/25 05:53 Dose: 1 tab Documented By: Admin: 01/12/25 20:21 Dose: 1 tab Documented By: Admin: 01/12/25 16:03 Dose: 1 tab Documented By: Admin: 01/12/25 09:33 Dose: 1 tab Documented By: Admin: 01/12/25 05:29 Dose: 1 tab Documented By: Sodium Chloride (Sodium Chloride 0.9% Flush) 10 ml IV PRN PRN PRN Reason: Flush Last Admin: 01/15/25 03:49 Dose: 10 ml Documented By: Admin: 01/13/25 14:11 Dose: 10 ml Documented By: Admin: 01/13/25 04:08 Dose: 10 ml Documented By: OLESYA Sodium Chloride (Sodium Chloride 0.9% Flush) 10 ml IV BID [facility] Last Admin: 01/15/25 07:54 Dose: 10 ml Documented By: Admin: 01/14/25 20:28 Dose: 10 ml Documented By: Admin: 01/14/25 09:13 Dose: 10 ml Documented By: Admin: 01/13/25 20:24 Dose: 10 ml Documented By: Admin: 01/13/25 08:40 Dose: 10 ml Documented By: Admin: 01/12/25 21:04 Dose: 10 ml Documented By: VINH Vital Signs Vital signs: Vital Signs - 8 hr 01/11/25 22:00 Temperature 97.8 F Pulse Rate 66 Respiratory Rate 18 Blood Pressure 131/84 Pulse Oximetry 96 Oxygen Delivery Method Room Air <Janeth Isaacs MD - Last Filed: 01/12/25 07:12> Orders Ordered: Discontinued Medications Acetaminophen (Acetaminophen 325 Mg Tablet) 975 mg PO NOW ONE Stop: 01/10/25 08:08 Last Admin: 01/10/25 08:41 Dose: 975 mg Documented By: DAISY Acetaminophen (Acetaminophen 325 Mg Tablet) 975 mg PO Q6H [facility] Last Admin: 01/11/25 02:15 Dose: Not Given Documented By: Admin: 01/10/25 20:38 Dose: 975 mg Documented By: Admin: 01/10/25 15:40 Dose: 975 mg Documented By: Acetaminophen (Acetaminophen 325 Mg Tablet) 975 mg PO NOW ONE Stop: 01/11/25 11:29 Last Admin: 01/11/25 11:34 Dose: 975 mg Documented By: SMITA Acetaminophen (Acetaminophen 325 Mg Tablet) 650 mg PO Q6H [facility] Last Admin: 01/15/25 10:16 Dose: 650 mg Documented By: Admin: 01/15/25 02:48 Dose: 650 mg Documented By: Admin: 01/14/25 20:24 Dose: 650 mg Documented By: Admin: 01/14/25 14:45 Dose: 650 mg Documented By: Admin: 01/14/25 08:53 Dose: 650 mg Documented By: Admin: 01/14/25 03:55 Dose: 650 mg Documented By: Admin: 01/13/25 21:32 Dose: 650 mg Documented By: Admin: 01/13/25 14:42 Dose: 650 mg Documented By: Admin: 01/13/25 09:04 Dose: 650 mg Documented By: MANPREET Albuterol (Albuterol Hfa Prepack) 1 box MISC DIRECTED ONE Stop: 01/11/25 08:29 Last Admin: 01/11/25 08:35 Dose: 1 box Documented By: SMITA Bacitracin (Bacitracin Oint 0.9 Gm Pckt) 1 applic TOP BID [facility] Bacitracin (Bacitracin Oint 0.9 Gm Pckt) 1 applic TOP BID [facility] Last Admin: 01/15/25 07:54 Dose: 1 applic Documented By: Admin: 01/14/25 20:24 Dose: 1 applic Documented By: Admin: 01/14/25 08:48 Dose: 1 applic Documented By: Admin: 01/13/25 21:32 Dose: 1 applic Documented By: Admin: 01/13/25 09:05 Dose: 1 applic Documented By: Admin: 01/12/25 20:25 Dose: 1 applic Documented By: Admin: 01/12/25 18:34 Dose: 1 applic Documented By: CECILE Duloxetine HCl (Duloxetine 30 Mg Capsule) 30 mg PO BEDTIME [facility] Last Admin: 01/14/25 20:23 Dose: 30 mg Documented By: Admin: 01/13/25 20:24 Dose: 30 mg Documented By: Admin: 01/12/25 20:37 Dose: 30 mg Documented By: Admin: 01/11/25 21:50 Dose: 30 mg Documented By: Admin: 01/10/25 22:29 Dose: 30 mg Documented By: MICHAEL Duloxetine HCl (Duloxetine 30 Mg Capsule) 30 mg PO .QHS [facility] Enoxaparin Sodium (Enoxaparin 40 Mg/0.4 Ml Syringe) 30 mg 0.5 mg/kg (30 mg) SUBCUT BID [facility] Last Admin: 01/10/25 22:29 Dose: 30 mg Documented By: MICHAEL Enoxaparin Sodium (Enoxaparin 30 Mg/0.3 Ml Syringe) 30 mg 0.5 mg/kg (30 mg) SUBCUT DAILY [facility] Last Admin: 01/15/25 07:53 Dose: 30 mg Documented By: Admin: 01/14/25 08:47 Dose: 30 mg Documented By: Admin: 01/13/25 08:39 Dose: 30 mg Documented By: Admin: 01/12/25 09:33 Dose: 30 mg Documented By: Admin: 01/11/25 09:03 Dose: 30 mg Documented By: SMITA Fentanyl (Fentanyl 100 Mcg/2 Ml Inj) 50 mcg IV Q1H PRN PRN Reason: Pain, Severe (7-10) Hydromorphone HCl (Hydromorphone 1 Mg Inj) 1 mg IV Q3H PRN PRN Reason: Pain, Severe (7-10) Last Admin: 01/15/25 10:16 Dose: 1 mg Documented By: Admin: 01/15/25 03:49 Dose: 1 mg Documented By: Admin: 01/14/25 06:16 Dose: 1 mg Documented By: Admin: 01/13/25 20:22 Dose: 1 mg Documented By: Admin: 01/13/25 14:12 Dose: 1 mg Documented By: Admin: 01/13/25 04:08 Dose: 1 mg Documented By: Admin: 01/12/25 20:36 Dose: 1 mg Documented By: Admin: 01/12/25 10:23 Dose: 1 mg Documented By: Admin: 01/12/25 06:25 Dose: 1 mg Documented By: Ibuprofen (Ibuprofen 400 Mg Tablet) 800 mg PO Q8H [facility] Last Admin: 01/10/25 14:35 Dose: 800 mg Documented By: Ibuprofen (Ibuprofen 400 Mg Tablet) 400 mg PO Q6HR [facility] Last Admin: 01/15/25 12:19 Dose: 400 mg Documented By: Admin: 01/15/25 06:00 Dose: Not Given Documented By: Admin: 01/14/25 23:51 Dose: 400 mg Documented By: Admin: 01/14/25 17:05 Dose: 400 mg Documented By: Admin: 01/14/25 12:00 Dose: 400 mg Documented By: Admin: 01/14/25 06:17 Dose: 400 mg Documented By: Admin: 01/14/25 00:12 Dose: 400 mg Documented By: Admin: 01/13/25 18:18 Dose: 400 mg Documented By: Admin: 01/13/25 11:57 Dose: 400 mg Documented By: Admin: 01/13/25 06:00 Dose: 400 mg Documented By: Admin: 01/12/25 23:22 Dose: 400 mg Documented By: Admin: 01/12/25 18:26 Dose: 400 mg Documented By: Admin: 01/12/25 10:55 Dose: 400 mg Documented By: Admin: 01/12/25 07:50 Dose: Not Given Documented By: Admin: 01/12/25 02:30 Dose: 400 mg Documented By: Admin: 01/11/25 19:12 Dose: 400 mg Documented By: Admin: 01/11/25 11:36 Dose: 400 mg Documented By: Admin: 01/11/25 05:22 Dose: 400 mg Documented By: Admin: 01/11/25 03:19 Dose: Not Given Documented By: MICHAEL Ibuprofen (Ibuprofen 400 Mg Tablet) 800 mg PO Q8H [facility] Last Admin: 01/12/25 19:30 Dose: Not Given Documented By: VINH Ipratropium [place] (Ipratropium 0.5 Mg/2.5 Ml Neb) 0.5 mg INH Q4HRWA [facility] Last Admin: 01/12/25 12:34 Dose: 0.5 mg Documented By: Admin: 01/12/25 09:18 Dose: Not Given Documented By: ADOLFO Ipratropium [place] (Ipratropium 0.5 Mg/2.5 Ml Neb) 0.5 mg INH Q2H PRN PRN Reason: Shortness Of Breath Last Admin: 01/14/25 08:48 Dose: 0.5 mg Documented By: Admin: 01/12/25 21:22 Dose: 0.5 mg Documented By: JACOB Ipratropium [place] (Ipratropium 0.5 Mg/2.5 Ml Neb) 0.5 mg INH RTQ4HR ANTOINE Last Admin: 01/15/25 09:32 Dose: Not Given Documented By: Admin: 01/15/25 09:18 Dose: 0.5 mg Documented By: Admin: 01/15/25 08:10 Dose: Not Given Documented By: Admin: 01/15/25 02:55 Dose: Not Given Documented By: Admin: 01/15/25 00:15 Dose: Not Given Documented By: Admin: 01/14/25 20:07 Dose: 0.5 mg Documented By: Admin: 01/14/25 16:55 Dose: Not Given Documented By: Admin: 01/14/25 11:55 Dose: 0.5 mg Documented By: Admin: 01/14/25 08:25 Dose: Not Given Documented By: Admin: 01/14/25 02:57 Dose: Not Given Documented By: Admin: 01/13/25 23:23 Dose: Not Given Documented By: Admin: 01/13/25 18:48 Dose: Not Given Documented By: Admin: 01/13/25 15:21 Dose: 0.5 mg Documented By: Admin: 01/13/25 11:36 Dose: 0.5 mg Documented By: Admin: 01/13/25 07:35 Dose: 0.5 mg Documented By: Admin: 01/13/25 02:25 Dose: Not Given Documented By: Admin: 01/12/25 23:40 Dose: Not Given Documented By: Admin: 01/12/25 21:00 Dose: Not Given Documented By: JACOB Ketorolac Tromethamine (Ketorolac 30 Mg/Ml Vial) 15 mg IV NOW ONE Stop: 01/10/25 04:16 Last Admin: 01/10/25 04:18 Dose: 15 mg Documented By: JACKLYN Ketorolac Tromethamine (Ketorolac 30 Mg/Ml Vial) 15 mg IV NOW ONE Stop: 01/10/25 08:07 Last Admin: 01/10/25 08:44 Dose: 15 mg Documented By: DAISY Lidocaine (Remove Lidocaine Patch) 1 each TOP NOW ONE Stop: 01/10/25 08:07 Last Admin: 01/10/25 09:09 Dose: Not Given Documented By: DAISY Lidocaine (Lidocaine 5% Patch) 1 each TOP NOW ONE Stop: 01/10/25 08:31 Last Admin: 01/10/25 08:45 Dose: 1 each Documented By: DAISY Lidocaine (Lidocaine 5% Patch) 1 each TOP DAILY [facility] Last Admin: 01/14/25 08:47 Dose: 1 each Documented By: Admin: 01/13/25 08:39 Dose: 1 each Documented By: Admin: 01/12/25 09:33 Dose: 1 each Documented By: Admin: 01/11/25 08:35 Dose: 1 each Documented By: SMITA Lidocaine (Lidocaine 5% Patch) 1 each TOP DAILY [facility] Last Admin: 01/15/25 09:00 Dose: 1 each Documented By: Admin: 01/14/25 12:53 Dose: 1 each Documented By: MANPREET Lidocaine (Remove Lidocaine Patch) 1 each TOP BEDTIME [facility] Last Admin: 01/14/25 21:08 Dose: 1 each Documented By: BRITTON Lorazepam (Lorazepam 1 Mg Tablet) 1 mg PO NOW ONE Stop: 01/12/25 08:51 Last Admin: 01/12/25 09:33 Dose: 1 mg Documented By: CECILE Methocarbamol (Methocarbamol 500 Mg Tablet) 500 mg PO QID [facility] Last Admin: 01/15/25 14:08 Dose: 500 mg Documented By: Admin: 01/15/25 07:53 Dose: 500 mg Documented By: Admin: 01/14/25 20:24 Dose: 500 mg Documented By: Admin: 01/14/25 16:36 Dose: 500 mg Documented By: Admin: 01/14/25 12:02 Dose: 500 mg Documented By: Admin: 01/14/25 08:53 Dose: 500 mg Documented By: Admin: 01/13/25 21:33 Dose: 500 mg Documented By: Admin: 01/13/25 18:18 Dose: 500 mg Documented By: Admin: 01/13/25 13:17 Dose: 500 mg Documented By: Admin: 01/13/25 09:06 Dose: 500 mg Documented By: MANPREET Morphine Sulfate (Morphine 4 Mg/Ml Inj) 4 mg IV NOW ONE Stop: 01/10/25 06:36 Last Admin: 01/10/25 06:42 Dose: 4 mg Documented By: MICHAEL Morphine Sulfate (Morphine 2 Mg/Ml Inj) 2 mg IV NOW ONE Stop: 01/10/25 10:14 Last Admin: 01/10/25 10:51 Dose: 2 mg Documented By: DAISY Morphine Sulfate (Morphine 4 Mg/Ml Inj) 4 mg IV Q6H PRN PRN Reason: Pain, Severe (7-10) Last Admin: 01/10/25 14:34 Dose: 4 mg Documented By: Morphine Sulfate (Morphine 4 Mg/Ml Inj) 4 mg IV NOW ONE Stop: 01/12/25 03:00 Last Admin: 01/12/25 03:05 Dose: 4 mg Documented By: MICHAEL Morphine Sulfate (Morphine 4 Mg/Ml Inj) 4 mg IV Q4HR PRN PRN Reason: Pain, Severe (7-10) Last Admin: 01/12/25 05:01 Dose: 4 mg Documented By: Ondansetron HCl (Ondansetron 4 Mg/2 Ml Inj) 4 mg IV NOW ONE Stop: 01/10/25 06:48 Last Admin: 01/10/25 06:48 Dose: 4 mg Documented By: JACKLYN Ondansetron HCl (Ondansetron 4 Mg/2 Ml Inj) 4 mg IV NOW ONE Stop: 01/10/25 10:14 Last Admin: 01/10/25 10:51 Dose: 4 mg Documented By: DAISY Oxycodone HCl (Oxycodone Ir 5 Mg Tablet) 5 mg PO NOW ONE Stop: 01/10/25 08:08 Last Admin: 01/10/25 08:41 Dose: 5 mg Documented By: DAISY Oxycodone HCl (Oxycodone Ir 5 Mg Tablet) 5 mg PO Q6H ANTOINE Last Admin: 01/11/25 05:22 Dose: 5 mg Documented By: Admin: 01/10/25 20:38 Dose: 5 mg Documented By: Admin: 01/10/25 14:35 Dose: 5 mg Documented By: Oxycodone HCl (Oxycodone Ir 5 Mg Tablet) 5 mg PO Q4HR PRN PRN Reason: Pain, Moderate (4-6) Last Admin: 01/12/25 02:31 Dose: 5 mg Documented By: Admin: 01/11/25 16:56 Dose: 5 mg Documented By: SMITA Oxycodone HCl (Oxycodone Ir 10 Mg Tablet) 10 mg PO Q3HR PRN PRN Reason: Pain, Severe (7-10) Last Admin: 01/15/25 12:18 Dose: 10 mg Documented By: Admin: 01/15/25 02:48 Dose: 10 mg Documented By: Admin: 01/14/25 23:51 Dose: 10 mg Documented By: Admin: 01/14/25 20:23 Dose: 10 mg Documented By: Admin: 01/14/25 14:45 Dose: 10 mg Documented By: Admin: 01/14/25 12:02 Dose: 10 mg Documented By: Admin: 01/14/25 08:53 Dose: 10 mg Documented By: Admin: 01/14/25 03:55 Dose: 10 mg Documented By: Admin: 01/14/25 00:11 Dose: 10 mg Documented By: Admin: 01/13/25 21:32 Dose: 10 mg Documented By: Admin: 01/13/25 18:19 Dose: 10 mg Documented By: Admin: 01/13/25 11:57 Dose: 10 mg Documented By: Admin: 01/13/25 09:03 Dose: 10 mg Documented By: MANPREET Oxycodone/Acetaminophen (Oxycodone/Acetaminophen 5/325 Tablet) 1 tab PO Q4HR PRN PRN Reason: pain Last Admin: 01/11/25 09:03 Dose: 1 tab Documented By: Admin: 01/10/25 22:29 Dose: 1 tab Documented By: MICHAEL Oxycodone/Acetaminophen (Oxycodone/Acetaminophen 5/325 Tablet) 1 tab PO Q4HR PRN PRN Reason: Pain, Moderate (4-6) Oxycodone/Acetaminophen (Oxycodone/Acetaminophen 5/325 Tablet) 1 tab PO Q4HR PRN PRN Reason: Pain, Moderate (4-6) Last Admin: 01/15/25 07:53 Dose: 1 tab Documented By: Admin: 01/13/25 05:53 Dose: 1 tab Documented By: Admin: 01/12/25 20:21 Dose: 1 tab Documented By: Admin: 01/12/25 16:03 Dose: 1 tab Documented By: Admin: 01/12/25 09:33 Dose: 1 tab Documented By: Admin: 01/12/25 05:29 Dose: 1 tab Documented By: Sodium Chloride (Sodium Chloride 0.9% Flush) 10 ml IV PRN PRN PRN Reason: Flush Last Admin: 01/15/25 03:49 Dose: 10 ml Documented By: Admin: 01/13/25 14:11 Dose: 10 ml Documented By: Admin: 01/13/25 04:08 Dose: 10 ml Documented By: OLESYA Sodium Chloride (Sodium Chloride 0.9% Flush) 10 ml IV BID [facility] Last Admin: 01/15/25 07:54 Dose: 10 ml Documented By: Admin: 01/14/25 20:28 Dose: 10 ml Documented By: Admin: 01/14/25 09:13 Dose: 10 ml Documented By: Admin: 01/13/25 20:24 Dose: 10 ml Documented By: Admin: 01/13/25 08:40 Dose: 10 ml Documented By: Admin: 01/12/25 21:04 Dose: 10 ml Documented By: VINH Vital Signs Vital signs: Vital Signs - 8 hr 01/11/25 22:00 Temperature 97.8 F Pulse Rate 66 Respiratory Rate 18 Blood Pressure 131/84 Pulse Oximetry 96 Oxygen Delivery Method Room Air <Terrell Henriquez MD - Last Filed: 01/12/25 05:24> Orders Ordered: Discontinued Medications Acetaminophen (Acetaminophen 325 Mg Tablet) 975 mg PO NOW ONE Stop: 01/10/25 08:08 Last Admin: 01/10/25 08:41 Dose: 975 mg Documented By: DAISY Acetaminophen (Acetaminophen 325 Mg Tablet) 975 mg PO Q6H [facility] Last Admin: 01/11/25 02:15 Dose: Not Given Documented By: Admin: 01/10/25 20:38 Dose: 975 mg Documented By: Admin: 01/10/25 15:40 Dose: 975 mg Documented By: Acetaminophen (Acetaminophen 325 Mg Tablet) 975 mg PO NOW ONE Stop: 01/11/25 11:29 Last Admin: 01/11/25 11:34 Dose: 975 mg Documented By: SMITA Acetaminophen (Acetaminophen 325 Mg Tablet) 650 mg PO Q6H [facility] Last Admin: 01/15/25 10:16 Dose: 650 mg Documented By: Admin: 01/15/25 02:48 Dose: 650 mg Documented By: Admin: 01/14/25 20:24 Dose: 650 mg Documented By: Admin: 01/14/25 14:45 Dose: 650 mg Documented By: Admin: 01/14/25 08:53 Dose: 650 mg Documented By: Admin: 01/14/25 03:55 Dose: 650 mg Documented By: Admin: 01/13/25 21:32 Dose: 650 mg Documented By: Admin: 01/13/25 14:42 Dose: 650 mg Documented By: Admin: 01/13/25 09:04 Dose: 650 mg Documented By: MANPREET Albuterol (Albuterol Hfa Prepack) 1 box MISC DIRECTED ONE Stop: 01/11/25 08:29 Last Admin: 01/11/25 08:35 Dose: 1 box Documented By: ES Bacitracin (Bacitracin Oint 0.9 Gm Pckt) 1 applic TOP BID [facility] Bacitracin (Bacitracin Oint 0.9 Gm Pckt) 1 applic TOP BID [facility] Last Admin: 01/15/25 07:54 Dose: 1 applic Documented By: Admin: 01/14/25 20:24 Dose: 1 applic Documented By: Admin: 01/14/25 08:48 Dose: 1 applic Documented By: Admin: 01/13/25 21:32 Dose: 1 applic Documented By: Admin: 01/13/25 09:05 Dose: 1 applic Documented By: Admin: 01/12/25 20:25 Dose: 1 applic Documented By: Admin: 01/12/25 18:34 Dose: 1 applic Documented By: CECILE Duloxetine HCl (Duloxetine 30 Mg Capsule) 30 mg PO BEDTIME [facility] Last Admin: 01/14/25 20:23 Dose: 30 mg Documented By: Admin: 01/13/25 20:24 Dose: 30 mg Documented By: Admin: 01/12/25 20:37 Dose: 30 mg Documented By: Admin: 01/11/25 21:50 Dose: 30 mg Documented By: Admin: 01/10/25 22:29 Dose: 30 mg Documented By: MICHAEL Duloxetine HCl (Duloxetine 30 Mg Capsule) 30 mg PO .QHS [facility] Enoxaparin Sodium (Enoxaparin 40 Mg/0.4 Ml Syringe) 30 mg 0.5 mg/kg (30 mg) SUBCUT BID [facility] Last Admin: 01/10/25 22:29 Dose: 30 mg Documented By: MICHAEL Enoxaparin Sodium (Enoxaparin 30 Mg/0.3 Ml Syringe) 30 mg 0.5 mg/kg (30 mg) SUBCUT DAILY [facility] Last Admin: 01/15/25 07:53 Dose: 30 mg Documented By: Admin: 01/14/25 08:47 Dose: 30 mg Documented By: Admin: 01/13/25 08:39 Dose: 30 mg Documented By: Admin: 01/12/25 09:33 Dose: 30 mg Documented By: Admin: 01/11/25 09:03 Dose: 30 mg Documented By: SMITA Fentanyl (Fentanyl 100 Mcg/2 Ml Inj) 50 mcg IV Q1H PRN PRN Reason: Pain, Severe (7-10) Hydromorphone HCl (Hydromorphone 1 Mg Inj) 1 mg IV Q3H PRN PRN Reason: Pain, Severe (7-10) Last Admin: 01/15/25 10:16 Dose: 1 mg Documented By: Admin: 01/15/25 03:49 Dose: 1 mg Documented By: Admin: 01/14/25 06:16 Dose: 1 mg Documented By: Admin: 01/13/25 20:22 Dose: 1 mg Documented By: Admin: 01/13/25 14:12 Dose: 1 mg Documented By: Admin: 01/13/25 04:08 Dose: 1 mg Documented By: Admin: 01/12/25 20:36 Dose: 1 mg Documented By: Admin: 01/12/25 10:23 Dose: 1 mg Documented By: Admin: 01/12/25 06:25 Dose: 1 mg Documented By: Ibuprofen (Ibuprofen 400 Mg Tablet) 800 mg PO Q8H [facility] Last Admin: 01/10/25 14:35 Dose: 800 mg Documented By: Ibuprofen (Ibuprofen 400 Mg Tablet) 400 mg PO Q6HR [facility] Last Admin: 01/15/25 12:19 Dose: 400 mg Documented By: Admin: 01/15/25 06:00 Dose: Not Given Documented By: Admin: 01/14/25 23:51 Dose: 400 mg Documented By: Admin: 01/14/25 17:05 Dose: 400 mg Documented By: Admin: 01/14/25 12:00 Dose: 400 mg Documented By: Admin: 01/14/25 06:17 Dose: 400 mg Documented By: Admin: 01/14/25 00:12 Dose: 400 mg Documented By: Admin: 01/13/25 18:18 Dose: 400 mg Documented By: Admin: 01/13/25 11:57 Dose: 400 mg Documented By: Admin: 01/13/25 06:00 Dose: 400 mg Documented By: Admin: 01/12/25 23:22 Dose: 400 mg Documented By: Admin: 01/12/25 18:26 Dose: 400 mg Documented By: Admin: 01/12/25 10:55 Dose: 400 mg Documented By: Admin: 01/12/25 07:50 Dose: Not Given Documented By: Admin: 01/12/25 02:30 Dose: 400 mg Documented By: Admin: 01/11/25 19:12 Dose: 400 mg Documented By: Admin: 01/11/25 11:36 Dose: 400 mg Documented By: Admin: 01/11/25 05:22 Dose: 400 mg Documented By: Admin: 01/11/25 03:19 Dose: Not Given Documented By: MICHAEL Ibuprofen (Ibuprofen 400 Mg Tablet) 800 mg PO Q8H [facility] Last Admin: 01/12/25 19:30 Dose: Not Given Documented By: VINH Ipratropium [place] (Ipratropium 0.5 Mg/2.5 Ml Neb) 0.5 mg INH Q4HRWA [facility] Last Admin: 01/12/25 12:34 Dose: 0.5 mg Documented By: Admin: 01/12/25 09:18 Dose: Not Given Documented By: ADOLFO Ipratropium [place] (Ipratropium 0.5 Mg/2.5 Ml Neb) 0.5 mg INH Q2H PRN PRN Reason: Shortness Of Breath Last Admin: 01/14/25 08:48 Dose: 0.5 mg Documented By: Admin: 01/12/25 21:22 Dose: 0.5 mg Documented By: JACOB Ipratropium [place] (Ipratropium 0.5 Mg/2.5 Ml Neb) 0.5 mg INH RTQ4HR ANTOINE Last Admin: 01/15/25 09:32 Dose: Not Given Documented By: Admin: 01/15/25 09:18 Dose: 0.5 mg Documented By: Admin: 01/15/25 08:10 Dose: Not Given Documented By: Admin: 01/15/25 02:55 Dose: Not Given Documented By: Admin: 01/15/25 00:15 Dose: Not Given Documented By: Admin: 01/14/25 20:07 Dose: 0.5 mg Documented By: Admin: 01/14/25 16:55 Dose: Not Given Documented By: Admin: 01/14/25 11:55 Dose: 0.5 mg Documented By: Admin: 01/14/25 08:25 Dose: Not Given Documented By: Admin: 01/14/25 02:57 Dose: Not Given Documented By: Admin: 01/13/25 23:23 Dose: Not Given Documented By: Admin: 01/13/25 18:48 Dose: Not Given Documented By: Admin: 01/13/25 15:21 Dose: 0.5 mg Documented By: Admin: 01/13/25 11:36 Dose: 0.5 mg Documented By: Admin: 01/13/25 07:35 Dose: 0.5 mg Documented By: Admin: 01/13/25 02:25 Dose: Not Given Documented By: Admin: 01/12/25 23:40 Dose: Not Given Documented By: Admin: 01/12/25 21:00 Dose: Not Given Documented By: JACOB Ketorolac Tromethamine (Ketorolac 30 Mg/Ml Vial) 15 mg IV NOW ONE Stop: 01/10/25 04:16 Last Admin: 01/10/25 04:18 Dose: 15 mg Documented By: JACKLYN Ketorolac Tromethamine (Ketorolac 30 Mg/Ml Vial) 15 mg IV NOW ONE Stop: 01/10/25 08:07 Last Admin: 01/10/25 08:44 Dose: 15 mg Documented By: DAISY Lidocaine (Remove Lidocaine Patch) 1 each TOP NOW ONE Stop: 01/10/25 08:07 Last Admin: 01/10/25 09:09 Dose: Not Given Documented By: DAISY Lidocaine (Lidocaine 5% Patch) 1 each TOP NOW ONE Stop: 01/10/25 08:31 Last Admin: 01/10/25 08:45 Dose: 1 each Documented By: DAISY Lidocaine (Lidocaine 5% Patch) 1 each TOP DAILY [facility] Last Admin: 01/14/25 08:47 Dose: 1 each Documented By: Admin: 01/13/25 08:39 Dose: 1 each Documented By: Admin: 01/12/25 09:33 Dose: 1 each Documented By: Admin: 01/11/25 08:35 Dose: 1 each Documented By: SMITA Lidocaine (Lidocaine 5% Patch) 1 each TOP DAILY [facility] Last Admin: 01/15/25 09:00 Dose: 1 each Documented By: Admin: 01/14/25 12:53 Dose: 1 each Documented By: MANPREET Lidocaine (Remove Lidocaine Patch) 1 each TOP BEDTIME [facility] Last Admin: 01/14/25 21:08 Dose: 1 each Documented By: BRITTON Lorazepam (Lorazepam 1 Mg Tablet) 1 mg PO NOW ONE Stop: 01/12/25 08:51 Last Admin: 01/12/25 09:33 Dose: 1 mg Documented By: CECILE Methocarbamol (Methocarbamol 500 Mg Tablet) 500 mg PO QID [facility] Last Admin: 01/15/25 14:08 Dose: 500 mg Documented By: Admin: 01/15/25 07:53 Dose: 500 mg Documented By: Admin: 01/14/25 20:24 Dose: 500 mg Documented By: Admin: 01/14/25 16:36 Dose: 500 mg Documented By: Admin: 01/14/25 12:02 Dose: 500 mg Documented By: Admin: 01/14/25 08:53 Dose: 500 mg Documented By: Admin: 01/13/25 21:33 Dose: 500 mg Documented By: Admin: 01/13/25 18:18 Dose: 500 mg Documented By: Admin: 01/13/25 13:17 Dose: 500 mg Documented By: Admin: 01/13/25 09:06 Dose: 500 mg Documented By: MANPREET Morphine Sulfate (Morphine 4 Mg/Ml Inj) 4 mg IV NOW ONE Stop: 01/10/25 06:36 Last Admin: 01/10/25 06:42 Dose: 4 mg Documented By: MICHAEL Morphine Sulfate (Morphine 2 Mg/Ml Inj) 2 mg IV NOW ONE Stop: 01/10/25 10:14 Last Admin: 01/10/25 10:51 Dose: 2 mg Documented By: DAISY Morphine Sulfate (Morphine 4 Mg/Ml Inj) 4 mg IV Q6H PRN PRN Reason: Pain, Severe (7-10) Last Admin: 01/10/25 14:34 Dose: 4 mg Documented By: Morphine Sulfate (Morphine 4 Mg/Ml Inj) 4 mg IV NOW ONE Stop: 01/12/25 03:00 Last Admin: 01/12/25 03:05 Dose: 4 mg Documented By: MICHAEL Morphine Sulfate (Morphine 4 Mg/Ml Inj) 4 mg IV Q4HR PRN PRN Reason: Pain, Severe (7-10) Last Admin: 01/12/25 05:01 Dose: 4 mg Documented By: Ondansetron HCl (Ondansetron 4 Mg/2 Ml Inj) 4 mg IV NOW ONE Stop: 01/10/25 06:48 Last Admin: 01/10/25 06:48 Dose: 4 mg Documented By: JACKLYN Ondansetron HCl (Ondansetron 4 Mg/2 Ml Inj) 4 mg IV NOW ONE Stop: 01/10/25 10:14 Last Admin: 01/10/25 10:51 Dose: 4 mg Documented By: DAISY Oxycodone HCl (Oxycodone Ir 5 Mg Tablet) 5 mg PO NOW ONE Stop: 01/10/25 08:08 Last Admin: 01/10/25 08:41 Dose: 5 mg Documented By: DAISY Oxycodone HCl (Oxycodone Ir 5 Mg Tablet) 5 mg PO Q6H [facility] Last Admin: 01/11/25 05:22 Dose: 5 mg Documented By: Admin: 01/10/25 20:38 Dose: 5 mg Documented By: Admin: 01/10/25 14:35 Dose: 5 mg Documented By: Oxycodone HCl (Oxycodone Ir 5 Mg Tablet) 5 mg PO Q4HR PRN PRN Reason: Pain, Moderate (4-6) Last Admin: 01/12/25 02:31 Dose: 5 mg Documented By: Admin: 01/11/25 16:56 Dose: 5 mg Documented By: SMITA Oxycodone HCl (Oxycodone Ir 10 Mg Tablet) 10 mg PO Q3HR PRN PRN Reason: Pain, Severe (7-10) Last Admin: 01/15/25 12:18 Dose: 10 mg Documented By: Admin: 01/15/25 02:48 Dose: 10 mg Documented By: Admin: 01/14/25 23:51 Dose: 10 mg Documented By: Admin: 01/14/25 20:23 Dose: 10 mg Documented By: Admin: 01/14/25 14:45 Dose: 10 mg Documented By: Admin: 01/14/25 12:02 Dose: 10 mg Documented By: Admin: 01/14/25 08:53 Dose: 10 mg Documented By: Admin: 01/14/25 03:55 Dose: 10 mg Documented By: Admin: 01/14/25 00:11 Dose: 10 mg Documented By: Admin: 01/13/25 21:32 Dose: 10 mg Documented By: Admin: 01/13/25 18:19 Dose: 10 mg Documented By: Admin: 01/13/25 11:57 Dose: 10 mg Documented By: Admin: 01/13/25 09:03 Dose: 10 mg Documented By: MANPREET Oxycodone/Acetaminophen (Oxycodone/Acetaminophen 5/325 Tablet) 1 tab PO Q4HR PRN PRN Reason: pain Last Admin: 01/11/25 09:03 Dose: 1 tab Documented By: Admin: 01/10/25 22:29 Dose: 1 tab Documented By: MICHAEL Oxycodone/Acetaminophen (Oxycodone/Acetaminophen 5/325 Tablet) 1 tab PO Q4HR PRN PRN Reason: Pain, Moderate (4-6) Oxycodone/Acetaminophen (Oxycodone/Acetaminophen 5/325 Tablet) 1 tab PO Q4HR PRN PRN Reason: Pain, Moderate (4-6) Last Admin: 01/15/25 07:53 Dose: 1 tab Documented By: Admin: 01/13/25 05:53 Dose: 1 tab Documented By: Admin: 01/12/25 20:21 Dose: 1 tab Documented By: Admin: 01/12/25 16:03 Dose: 1 tab Documented By: Admin: 01/12/25 09:33 Dose: 1 tab Documented By: Admin: 01/12/25 05:29 Dose: 1 tab Documented By: Sodium Chloride (Sodium Chloride 0.9% Flush) 10 ml IV PRN PRN PRN Reason: Flush Last Admin: 01/15/25 03:49 Dose: 10 ml Documented By: Admin: 01/13/25 14:11 Dose: 10 ml Documented By: Admin: 01/13/25 04:08 Dose: 10 ml Documented By: OLESYA Sodium Chloride (Sodium Chloride 0.9% Flush) 10 ml IV BID ANTOINE Last Admin: 01/15/25 07:54 Dose: 10 ml Documented By: Admin: 01/14/25 20:28 Dose: 10 ml Documented By: Admin: 01/14/25 09:13 Dose: 10 ml Documented By: Admin: 01/13/25 20:24 Dose: 10 ml Documented By: Admin: 01/13/25 08:40 Dose: 10 ml Documented By: Admin: 01/12/25 21:04 Dose: 10 ml Documented By: VINH Vital Signs Vital signs: Vital Signs - 8 hr 01/11/25 22:00 Temperature 97.8 F Pulse Rate 66 Respiratory Rate 18 Blood Pressure 131/84 Pulse Oximetry 96 Oxygen Delivery Method Room Air MDM - Back Pain/Injury <Cecy Paulino, DO - Last Filed: 01/15/25 03:26> MDM Narrative Medical decision making narrative: 54-year-old female fell from her bed and tumbled down 2 or 3 steps in her 5th wheel trailer has quite a bit of pain in her pelvis on exam, right hip and SI region. Does have a history of lumbar fusion has tenderness just at the base but not really in the lumbar spine so CT L-spine and pelvis were obtained. Patient has not had any neurologic changes on exam. Had several doses of pain medication EN route with EMS also received Toradol and narcotics here. Patient states prior back surgeries were locally with Dr. Khan, he no longer works in the area and there was no longer spinal coverage this facility. CT pelvis shows no acute fracture or malalignment with the unremarkable soft tissue contents of the pelvis. No bladder stones or distal ureteral dilation. No fluid collections. Nonobstructive bowel. Bones are intact no significant degenerative changes of the hips. CT L-spine without contrast shows normal vertebral body alignment. No vertebral body height loss. Acute appearing fracture of the right transverse process of L1 through L4. Prior posterior fusion L3-4 with the interbody spacer. The hardware appears intact. Right L5 pars defect. No listhesis. No acute findings within the visualized soft tissues of the abdomen and pelvis. Patient had Toradol here in the department. Spoke with orthopedic surgery, Dr Carrion at 0638, he reviewed images for patient awaiting call back. I also reviewed patients night read rad report. Patient signed out to Dr. Combs while awaiting callback from orthopedics. 0 800-Patient signed out to myself (Lauryn) at change of shift. Dr. Carrion was able to review the scan. He sees isolated transverse process fractures. Recommended pain management, early mobilization without restrictions. Will give trial of oral oxycodone, acetaminophen, apply lidocaine patch, give additional IV Toradol and tried to ambulate once pain is better managed to see if appropriate for discharge Patient failed ambulation trial. We will give additional pain medication and schedule pain medications. Radiologist also calls back to relay additional finding from scan overnight in that the patient has a fracture of left-sided vertical fixation broad Spoke with Dr. Khan of [facility] orthopedic surgeries no longer practicing in the community. Later spoke with Dr. Almazan of [facility]ortho spine who reports that in the setting of hardware fracture will need outpatient follow-up, nothing acutely to do or additional restrictions. 1900 -patient remains in the emergency department throughout the day. She was evaluated by Physical therapy. Case management is involved. We are working on placement into rehab as does not have safe discharge plan 0700 -assumed care of patient at change of shift with full report. Re- evaluation at 7:30 a.m. patient remained stable, with no acute complaints. Updated regarding plan for further pain management and physical therapy evaluation. 01/11/25Martinez. Signout from Dr Isaacs. 54-year-old female with fall low back pain, CT scan shows transverse fracture, old operative sander noted, stable per Orthopedic surgery, outpatient further follow up advised, physical therapy saw physical therapy, TLSO brace placed, feels that she is in too much pain to go home, does not meet admission criteria. Written for regular sc heduled oxycodone, Tylenol, Oxy IR PRN. MRI lumbar spine ordered for tomorrow when tech available. Assumed interim care. 0400, case discussed with hospitalist Dr. Robins who accepts patient for social admission <Montserrat Combs MD - Last Filed: 01/12/25 08:54> [facility] Narrative Medical decision making narrative: 54-year-old female fell from her bed and tumbled down 2 or 3 steps in her 5th wheel trailer has quite a bit of pain in her pelvis on exam, right hip and SI region. Does have a history of lumbar fusion has tenderness just at the base but not really in the lumbar spine so CT L-spine and pelvis were obtained. Patient has not had any neurologic changes on exam. Had several doses of pain medication EN route with EMS also received Toradol and narcotics here. Patient states prior back surgeries were locally with Dr. Khan, he no longer works in the area and there was no longer spinal coverage this facility. CT pelvis shows no acute fracture or malalignment with the unremarkable soft tissue contents of the pelvis. No bladder stones or distal ureteral dilation. No fluid collections. Nonobstructive bowel. Bones are intact no significant degenerative changes of the hips. CT L-spine without contrast shows normal vertebral body alignment. No vertebral body height loss. Acute appearing fracture of the right transverse process of L1 through L4. Prior posterior fusion L3-4 with the interbody spacer. The hardware appears intact. Right L5 pars defect. No listhesis. No acute findings within the visualized soft tissues of the abdomen and pelvis. Patient had Toradol here in the department. Spoke with orthopedic surgery, Dr Carrion at 0638, he reviewed images for patient. I also reviewed patients night read rad report. 0 800-Patient signed out to myself (Lauryn) at change of shift. Dr. Carrion was able to review the scan. He sees isolated transverse process fractures. Recommended pain management, early mobilization without restrictions. Will give trial of oral oxycodone, acetaminophen, apply lidocaine patch, give additional IV Toradol and tried to ambulate once pain is better managed to see if appropriate for discharge Patient failed ambulation trial. We will give additional pain medication and schedule pain medications. Radiologist also calls back to relay additional finding from scan overnight in that the patient has a fracture of left-sided vertical fixation broad Spoke with Dr. Khan of [facility] orthopedic surgeries no longer practicing in the community. Later spoke with Dr. Almazan of [facility]ortho spine who reports that in the setting of hardware fracture will need outpatient follow-up, nothing acutely to do or additional restrictions. 1900 -patient remains in the emergency department throughout the day. She was evaluated by Physical therapy. Case management is involved. We are working on placement into rehab as does not have safe discharge plan <Janeth Isaacs MD - Last Filed: 01/12/25 07:12> [facility] Narrative Medical decision making narrative: 54-year-old female fell from her bed and tumbled down 2 or 3 steps in her 5th wheel trailer has quite a bit of pain in her pelvis on exam, right hip and SI r egion. Does have a history of lumbar fusion has tenderness just at the base but not really in the lumbar spine so CT L-spine and pelvis were obtained. Patient has not had any neurologic changes on exam. Had several doses of pain medication EN route with EMS also received Toradol and narcotics here. Patient states prior back surgeries were locally with Dr. Khan, he no longer works in the area and there was no longer spinal coverage this facility. CT pelvis shows no acute fracture or malalignment with the unremarkable soft tissue contents of the pelvis. No bladder stones or distal ureteral dilation. No fluid collections. Nonobstructive bowel. Bones are intact no significant degenerative changes of the hips. CT L-spine without contrast shows normal vertebral body alignment. No vertebral body height loss. Acute appearing fracture of the right transverse process of L1 through L4. Prior posterior fusion L3-4 with the interbody spacer. The hardware appears intact. Right L5 pars defect. No listhesis. No acute findings within the visualized soft tissues of the abdomen and pelvis. Patient had Toradol here in the department. Spoke with orthopedic surgery, Dr Carrion at 0638, he reviewed images for patient. I also reviewed patients night read rad report. 0 800-Patient signed out to myself (Lauryn) at change of shift. Dr. Carrion was able to review the scan. He sees isolated transverse process fractures. Recommended pain management, early mobilization without restrictions. Will give trial of oral oxycodone, acetaminophen, apply lidocaine patch, give additional IV Toradol and tried to ambulate once pain is better managed to see if appropriate for discharge Patient failed ambulation trial. We will give additional pain medication and schedule pain medications. Radiologist also calls back to relay additional finding from scan overnight in that the patient has a fracture of left-sided vertical fixation broad Spoke with Dr. Khan of [facility] orthopedic surgeries no longer practicing in the community. Later spoke with Dr. Almazan of [facility]orth[facility] spine who reports that in the setting of hardware fracture will need outpatient follow-up, nothing acutely to do or additional restrictions. 1900 -patient remains in the emergency department throughout the day. She was evaluated by Physical therapy. Case management is involved. We are working on placement into rehab as does not have safe discharge plan 0700 -assumed care of patient at change of shift with full report. Re- evaluation at 7:30 a.m. patient remained stable, with no acute complaints. Updated regarding plan for further pain management and physical therapy evaluation. <Terrell Henriquez MD - Last Filed: 01/12/25 05:24> [facility] Narrative Medical decision making narrative: 54-year-old female fell from her bed and tumbled down 2 or 3 steps in her 5th wheel trailer has quite a bit of pain in her pelvis on exam, right hip and SI region. Does have a history of lumbar fusion has tenderness just at the base but not really in the lumbar spine so CT L-spine and pelvis were obtained. Patient has not had any neurologic changes on exam. Had several doses of pain medication EN route with EMS also received Toradol and narcotics here. Patient states prior back surgeries were locally with Dr. Khan, he no longer works in the area and there was no longer spinal coverage this facility. CT pelvis shows no acute fracture or malalignment with the unremarkable soft tissue contents of the pelvis. No bladder stones or distal ureteral dilation. No fluid collections. Nonobstructive bowel. Bones are intact no significant degenerative changes of the hips. CT L-spine without contrast shows normal vertebral body alignment. No vertebral body height loss. Acute appearing fracture of the right transverse process of L1 through L4. Prior posterior fusion L3-4 with the interbody spacer. The hardware appears intact. Right L5 pars defect. No listhesis. No acute findings within the visualized soft tissues of the abdomen and pelvis. Patient had Toradol here in the department. Spoke with orthopedic surgery, Dr Carrion at 0638, he reviewed images for patient. I also reviewed patients night read rad report. 0 800-Patient signed out to myself (Lauryn) at change of shift. Dr. Carrion was able to review the scan. He sees isolated transverse process fractures. Recommended pain management, early mobilization without restrictions. Will give trial of oral oxycodone, acetaminophen, apply lidocaine patch, give additional IV Toradol and tried to ambulate once pain is better managed to see if appropriate for discharge Patient failed ambulation trial. We will give additional pain medication and schedule pain medications. Radiologist also calls back to relay additional finding from scan overnight in that the patient has a fracture of left-sided vertical fixation broad Spoke with Dr. Khan of [facility] orthopedic surgeries no longer practicing in the community. Later spoke with Dr. Almazan of [facility]orth[facility] spine who reports that in the setting of hardware fracture will need outpatient follow-up, nothing acutely to do or additional restrictions. 1899 -patient remains in the emergency department throughout the day. She was evaluated by Physical therapy. Case management is involved. We are working on placement into rehab as does not have safe discharge plan 0700 -assumed care of patient at change of shift with full report. Re- evaluation at 7:30 a.m. patient remained stable, with no acute complaints. Updated regarding plan for further pain management and physical therapy evaluation. 01/11/25,1899, Martinez. Signout from Dr Isaacs. 54-year-old female with fall low back pain, CT scan shows transverse fracture, old operative sander noted, stable per Orthopedic surgery, outpatient further follow up advised, physical t herapy saw physical therapy, TLSO brace placed, feels that she is in too much pain to go home, does not meet admission criteria. Written for regular scheduled oxycodone, Tylenol, Oxy IR PRN. MRI lumbar spine ordered for tomorrow when tech available. Assumed interim care. 399, case discussed with hospitalist Dr. Robins who accepts patient for social admission Discharge Plan Departure Patient Disposition: Admitted As Inpatient Clinical Impression: Closed fracture of transverse process of lumbar vertebra Qualifiers: Encounter type: initial encounter Qualified Code(s): S32.009A - Unspecified fracture of unspecified lumbar vertebra, initial encounter for closed fracture Admit Date/Time: 01/12/25 03:42 Admit Provider: Joel Robins
[2025-01-10] MEDS: KETOROLAC 30 MG/ML VIAL 15 MG IV ×2 (04:18→08:44)
--- NOTE | 2025-01-10 05:05 | DI.CT.S_ITS ---
PROCEDURE: CT LUMBAR SPINE WO CON INDICATIONS: Fall, Rt hip/back pain, hx of lumbar fusion TECHNIQUE: Noncontrast 3 mm thick sections acquired from the T12 level to the sacrum. Sagittal and coronal reformats were constructed. For radiation dose reduction, the following was used: automated exposure control. COMPARISON: [facility], CT, CT ABDOMEN PELVIS WITH CONTRAST, 07/15/2020, 12:54. [facility], CT, CT PEL WO CON, 01/10/2025, 5:13. FINDINGS: Image quality: There is artifact associated with the metallic hardware. Bones: Right-sided transverse process fractures can be seen at the L1 through L4 levels, as on series 4, image 29. No additional fractures are detected. Postoperative changes are seen, with bilateral pedicle screws at L3 and L4. The screws are well placed. Vertical fixation rods are seen. The left-sided vertical fixation sander is fractured, as demonstrated on series 5, image 18 and on series 4, image 26. No additional fractures are detected. There is a disc spacer at L3-L4. There is normal bony alignment. No suspicious lytic or blastic bony lesions. There is a right L5 pars defect, without associated alignment abnormality. Generalized degenerative changes are seen. Soft tissues: No retroperitoneal masses or hematomas. Visualized aorta is normal in caliber. Atherosclerotic calcification is noted. IMPRESSION: Right L1 through L4 transverse process fractures. L3-L4 postoperative hardware, with the left-sided vertical fixation sander fractured. Additional findings: Right L5 pars defect Note: This case (including differences between this final report and the preliminary report) discussed by telephone with Dr. Combs at 10:23 a.m. [place] time on December 20, 2024. Dictated by: Kolton Solis M.D. on 01/10/2025 at 9:18 Approved by: Kolton Solis M.D. on 01/10/2025 at 9:27
--- NOTE | 2025-01-10 05:05 | DI.CT.S_ITS ---
PROCEDURE: CT PEL WO CON INDICATIONS: Fall, Rt Hip/back pain, hx of lumbar fusion TECHNIQUE: Noncontrast 3 mm axial sections acquired through the bony pelvis, with coronal and sagittal reformatting. COMPARISON: [facility], CT, CT LUMBAR SPINE WO CON, 01/10/2025, 5:13. [facility], CT, CT ABDOMEN PELVIS WITH CONTRAST, 07/15/2020, 12:54. FINDINGS: Image quality: Excellent. Bones: No acute fracture is seen. No dislocation. No suspicious lytic or blastic lesions are seen. Lumbar fixation hardware is partially seen. Soft tissues: No dilated loops of small bowel are seen. No bladder wall thickening is seen. No adnexal masses are seen on either side. No enlarged inguinal or pelvic lymph nodes are seen. IMPRESSION: Negative for fracture or dislocation. Note: No significant discrepancy from the preliminary report. Dictated by: Kolton Solis M.D. on 01/10/2025 at 9:27 Approved by: Kolton Solis M.D. on 01/10/2025 at 9:29
--- NOTE | 2025-01-10 05:11 | PC.NURSE ---
Pt to imaging via ED stretcher with imaging aide.
[2025-01-10] MEDS: MORPHINE 4 MG/ML INJ IV ×2 (06:42→14:34)
[2025-01-10] MEDS: ONDANSETRON 4 MG/2 ML INJ IV ×2 (06:48→10:51)
--- NOTE | 2025-01-10 07:41 | PC.NURSE ---
Pt laying on left side in position of comfort, RA, A&Ox4, breathing even/equal/unlabored at this time. Call light within reach, no needs at this time
[2025-01-10] MEDS: ACETAMINOPHEN 325 MG TABLET 975 MG PO ×3 (08:41→20:38)
[2025-01-10] MEDS: OXYCODONE IR 5 MG TABLET PO ×3 (08:41→20:38)
[2025-01-10] MEDS: LIDOCAINE 5% PATCH 1 EACH TOP (08:45)
[2025-01-10] MEDS: MORPHINE 2 MG/ML INJ IV (10:51)
--- NOTE | 2025-01-10 12:56 | CM.DANOTE ---
Addendum entered by JUSTINO Mitchell 01/10/25 13:05: DCP Correction: Pt is a 54yo female, resident of [place], is seen in the ED after a fall from bed in her RV and experiencing back pain. Original Note: DCP Assessment Note: Pt is a 54yo male, resident of [place], is seen in the ED after a fall from bed in her RV and experiencing back pain. Pt's Primary Care Provider is Dr. Walker Machado ([facility]) and insurance is Medicare and Medicaid. Reviewed chart and discussed with multidisciplinary team pt's medical status and initial discharge needs. Per MD, pt is found to have transverse fractures - no surgery recommended at this time and no other admitting dx found currently. DCP met w/patient at bedside; introduced self and role. Patient was found in bed, alert and oriented, cooperative with assessment. Pt confirmed living situation, states she is currently alone in her RV with 4 dogs, her partner is currently in [place]. Pt states she is not able to get into her RV via steps and her local family all have stairs to their homes. Patient states a preference for a discharge to a SNF for initial recovery. LEAD RELAY TESTER reviewed Medicare Choice List and pt identified a preference for [facility] only. LEAD RELAY TESTER reviews insurance process for SNF, pt confirms that there are no resources for privately paying for SNF Rehab at this time. ED LEAD RELAY TESTER consults with PT, calls inpatient PT office, and left a voice message. ED LEAD RELAY TESTER calls [facility] and requests to review pt for possible admission; following for insurance authorization of pt's straight Medicare and Medicaid insurance. Plan: Awaiting PT/OT evaluations and recommendation for evolving discharge plans; anticipating a SNF Rehab discharge if available. CM team will follow closely for coordination of discharge plans. Wanda Serrano ROTARY SCREEN PRINTING MACHINE OPERATOR Discharge Planning/Care Management CM Discharge Assessment Start: 01/10/25 12:45 Freq: Status: Active Protocol: Document 01/10/25 12:48 MW (Rec: 01/10/25 12:55 MW [id number]) Discharge Planning Assessment Assigned Computer Network Specialist JUSTINO Muñoz DPOA/Assigned Designee Name Mother Tripp Contact Information [phone] Advance Directives? No History Provided By Patient,Medical Record Has Patient been admitted in last 30 No days? Prior Living Arrangements RV Comment [place] Household Members none Comment 4 dogs Type of transporation used prior to Drives own vehicle admit Independent with ADL's Yes Is patient alert and oriented? Yes Caregiver for Another No Patient/Family Preference Custodial Facility Barriers to Discharge Yes Comment Insurance type, no admittable diagnosis at this time Referrals Initiated Custodial If patient plan is SNF: Has PASSR been Yes completed? Medicare Choice List Provided Yes Medicare choice list reviewed on patient electronic tablet with SNF/HH Preference [facility] Has Agency SNF been contacted Yes Review Status In Process Please Provide Date Initial DC 01/10/25 Assessment Was Performed Next Review Type Continued Stay Review
--- NOTE | 2025-01-10 13:20 | PC.NURSE ---
Pt resting on stretcher, RA, NAD, A&Ox4, breathing even/equal/unlabored at this time. Call light within reach, no needs at this time
--- NOTE | 2025-01-10 14:05 | PT.IIE ---
Surgical History (Last Reviewed 01/10/25 @ 04:18 by Cecy Paulino DO) Anesthesia History of section (~01/2003) History of cholecystectomy (~1985) History of foot surgery (~1984) History of hand surgery (~07/2019) History of surgery on left wrist (~2014) S/P lumbar fusion (~01/2017) Medical History (Last Reviewed 01/10/25 @ 04:18 by Cecy Paulino DO) Anxiety Chronic back pain Chronic cough COPD (chronic obstructive pulmonary disease) Degenerative disc disease Depression Dysthymic disorder Fibromyalgia Gastroesophageal reflux disease Lumbar stenosis with neurogenic claudication Tobacco dependence Physical Therapy Inpatient Evaluation/Re-Eval M1 PT/OT-IP Prior Functional Status Start: 01/10/25 16:34 Freq: Status: Active Protocol: Document 01/10/25 14:05 AB (Rec: 01/10/25 16:53 AB Desktop) Medical Review Prior Functional Status Medical History Reviewed Yes Communication able to make needs known Mobility and Gait pt stated that she was independent with all mobilities and ambulation without AD Social History Household Members significant other,none Living Arrangements RV Number of Floors (Floors) Two Floors Number of Stairs To Enter/Railing? 4 steps L rail ascending to enter has 2 steps down without rails to bedroom Home Environment Standard Height Toilet,Tub/ Shower Home Equipment Hand Held Shower,Grab Bars In Shower Additional Social History Comment pt's BF is currently in [place] attending to his family's needs and will there for at least 2 weeks per pt M2 PT-IP Current Condition Start: 01/10/25 16:34 Freq: Status: Active Protocol: Document 01/10/25 14:05 AB (Rec: 01/10/25 16:53 AB Desktop) Physical Therapy Current Condition Current Condition Evaluation Date 01/10/25 Treatment Diagnosis fall; R L1-4 transverse processes fx; difficulty in walking Onset Date 01/10/25 M3 PT-IP Subjective Start: 01/10/25 16:34 Freq: Status: Active Protocol: Document 01/10/25 14:05 AB (Rec: 01/10/25 16:53 AB Desktop) Subjective Physical Therapy Visit Type Type Initial Evaluation Visit Start Time 14:05 Visit Stop Time 14:35 Number of LINE DANCER Visits 0 Physical Therapy Visit Comments Patient Comments agreeable to do PT Therapy Pain Assessment Pain When Pain Assessed At Rest Pain Present Pain Present Pain Reported Location Right Back Intensity 6 Scale Used increase to >10 when moving per pt Description Radiating Pain Behaviors Facial Grimacing,Guarding, Holding Area,Wincing Pain Management Techniques Distraction,Modification of Treatment,Re-positioning, Timing of Activity with Medications M4 PT-IP Mobility and Gait Start: 01/10/25 16:34 Freq: Status: Active Protocol: Document 01/10/25 14:05 AB (Rec: 01/10/25 16:53 AB Desktop) PT-Bed Mobility Assessment Rolling Type of Rolling Log Rolling Level of Assist Maximal Assistance Supine to Sit Supine to Sit Maximum Assistance Sit to Supine Sit to Supine Maximum Assistance,2 Person Assistance PT-Transfer Assessment Sit to and From Stand Sit to and from Stand Maximum Assistance,2 Person Assistance,Use of Upper Extremities Equipment Transfer Assistive Device Gait Belt,Front Wheeled Walker Orthotic/Prosthetic Devices or Brace: No Transfer Ability Level of Assist Maximum Assistance,2 Person Assistance,Use of Upper Extremities Comments Mobility Comments pt seen in the ED. pt in bed and c/o R low back pain but agreed to do PT. obtained PLOF and home set up. BP: 137 /64. educated pt on back precautions and log roll bed mobility. pt stated that she is familiar with log roll bed mob due to previous back surgery. pt completed log roll supine to sit max A and max cues. c/ o increase R back pain. no c/ o dizziness/lightheadedness. able to sit on EOB requiring mod to max A with increase posterior leaning. instructed pt to correct. sit to stand max A x 2 and max cues. required 2 attempts to stand. pt unable to keep weight on RLE due to pain on low back. encouraged pt to put some weight. pt instructed to take side steps towards HOB to position and completed ~ 2 ft using FWW max A and max cues. assisted pt back to bed requiring max A x 2 and max cues. positioned pt in bed. call light and table placed within reach. Gait Assessment Gait Gait Assistance Required: Maximum Assistance,2 Person Assist Distance (Feet) 2 Able to Maintain Weight Bearing Status Yes During Gait Assistive Devices Assistive Device Gait Belt,Front Wheeled Walker Factors Limiting Gait Function Factors Limiting Gait Function Decreased Activity Tolerance, Decreased Strength,Limited Range of Motion,Pain,Poor Balance,Poor Safety Awareness Comments Gait Comments sidestepping to position towards HOB using FWW PT-Balance Assessment Sitting Balance and Reactions Static Sitting Balance Ability Fair Dynamic Sitting Balance Ability Poor Standing Balance and Reactions Static Standing Balance Ability Poor Dynamic Standing Balance Ability Poor Device Used FWW M5 PT-IP Objective Assessments Start: 01/10/25 16:34 Freq: Status: Active Protocol: Document 01/10/25 14:05 AB (Rec: 01/10/25 16:53 AB Desktop) Orientation Orientation/Cognition Level of Alertness Alert Orientation Name,Place,Situation Language Function Ability No Deficits Noted Memory Description Short Term Impaired Gross Range of Motion Lower Extremity ROM Assessment Within Functional Limits Strength Lower Extremity Strength Assessment Right Impaired Hip 3-/5 Knee 3+/5 Comments Strength Comments c/o R low back pain with RLE movement Coordination Assessment Gross Coordination Gross Coordination WNL Sensation Assessment Sensation Gross Sensation WNL Muscle Tone Muscle Tone WNL Yes M6 PT-IP Treatment Start: 01/10/25 16:34 Freq: Status: Active Protocol: Document 01/10/25 14:05 AB (Rec: 01/10/25 16:53 AB Desktop) Physical Therapy Treatment Education Education Provided Precautions,Safety M7 PT-IP Assessment and Plan Start: 01/10/25 16:34 Freq: Status: Active Protocol: Document 01/10/25 14:05 AB (Rec: 01/10/25 16:53 AB Desktop) PT Summary Assessment and Plan Potential Rehabilitation Potential Fair Status of Condition at Evaluation Evolving Summary Impairments Pain,ROM,Strength,Balance, Coordination,Sensation,Tone, Cognition,Bed Mobility, Transfers,Gait,Activity Tolerance Assessment Summary pt is a 54 y/o s/p fall and sustaining R L1-4 transverse processes fx. pt with c/o increase R low back pain needing max A x 2 for mobility . pt unable to ambulate and only was able to take a few sidestepping to position in bed using fWW max A x 2 and max cues. pt will need 24/ assist and will benefit from SNF at this time. will continue to assess. Goals Bed Mobility Goal Minimal Assistance Transfer Goal Minimal Assistance,Front Wheeled Walker Gait Goal Minimal Assistance,Front Wheel Walker Gait Distance 50 Other Goals improve bed mobility, transfers, ambulation using FWW ~ 150 ft mod I up/down 4 steps L rail SBA; up /down 2 steps without rails SBA Days to Meet Goals 10 Frequency of Treatment Frequency Of Treatment Once a Day Treatment Plan Physical Therapy Treatment Plan Bed Mobility Training,Transfer Training,Gait Training, Therapeutic Exercise,Balance Retraining,Discharge Planning, Hot or Cold Pack,Neuromuscular Re-ed,Coordination Retraining ,Manual Therapy Precautions Lumbar Precautions Log Roll,No Twisting,Limit Bending,Lifting Restriction of 10 lbs Other Precautions falls Recommendations To Nursing Amount of Assist Needed Mechanical Lift Discharge Recommendations PT Discharge Recommendations SNF Rehab Transportation Needs at Discharge Wheelchair/Cabulance,Stretcher /Ambulance - PT assist 2
[2025-01-10] MEDS: IBUPROFEN 400 MG TABLET 800 MG PO (14:35)
--- NOTE | 2025-01-10 19:16 | CM.SWNOTE ---
ED FLOOR WINDER Note: Per PT, patient is recommended for SNF and is currently a 2 person assist. Per [facility] Admissions, patient's insurance can be accepted for Rehab if admitted inpatient status for 3 midnights. Patient not able to privately pay for rehab. Per RN, pt still experiencing intractable pain, especially after working with PT. Receiving IV pain medications. SCHUYLER ShelbySW
--- NOTE | 2025-01-10 19:24 | PC.NURSE ---
Pt resting in position of comfort, RA, A&Ox4, breathing even/equal/unlabored at this time. Call light within reach, no other needs at this time
[2025-01-10] MEDS: OXYCODONE/ACETAMINOPHEN 5/325 TABLET 1 TAB PO (22:29)
[2025-01-10] MEDS: DULOXETINE 30 MG CAPSULE PO (22:29)
[2025-01-10] MEDS: ENOXAPARIN 40 MG/0.4 ML SYRINGE 30 MG SUBCUT (22:29)
--- NOTE | 2025-01-10 22:55 | PC.NURSE ---
pt placed on a hospital bed for comfort, given warm blankets and lights dimmed, call coronado in reach
[2025-01-11] MEDS: OXYCODONE IR 5 MG TABLET PO ×2 (05:22→16:56)
[2025-01-11] MEDS: IBUPROFEN 400 MG TABLET PO ×3 (05:22→19:12)
[2025-01-11] MEDS: ALBUTEROL HFA PREPACK 1 BOX MISC (08:35)
[2025-01-11] MEDS: LIDOCAINE 5% PATCH 1 EACH TOP (08:35)
[2025-01-11] MEDS: OXYCODONE/ACETAMINOPHEN 5/325 TABLET 1 TAB PO (09:03)
[2025-01-11] MEDS: ENOXAPARIN 30 MG/0.3 ML SYRINGE SUBCUT (09:03)
[2025-01-11 09:30] VITALS: BP 155/71; PULSE 65; RESP 17; O2SAT 97
--- NOTE | 2025-01-11 10:53 | PT.IPTN ---
Physical Therapy Treatment Note M2 PT-IP Current Condition Start: 01/10/25 16:34 Freq: Status: Active Protocol: Document 01/10/25 14:05 AB (Rec: 01/10/25 16:53 AB Desktop) Physical Therapy Current Condition Current Condition Evaluation Date 01/10/25 Treatment Diagnosis fall; R L1-4 transverse processes fx; difficulty in walking Onset Date 01/10/25 M3 PT-IP Subjective Start: 01/10/25 16:34 Freq: Status: Active Protocol: Document 01/11/25 09:00 MB (Rec: 01/11/25 10:53 MB Desktop) Subjective Physical Therapy Visit Type Type Treatment Note Visit Start Time 09:00 Visit Stop Time 09:40 Notes Received order for TLSO in pt with acute L1-4 transverse process fractures and vertical sander fracture Number of AUTHORIZER Visits 0 Physical Therapy Visit Comments Patient Comments Pt is agreeable to PT Therapy Pain Assessment Pain When Pain Assessed During Mobility Pain Present Pain Present Pain Reported Location Right Back Scale Used 10 without TLSO in sitting, 8/ 10 in brace with gait M4 PT-IP Mobility and Gait Start: 01/10/25 16:34 Freq: Status: Active Protocol: Document 01/11/25 09:00 MB (Rec: 01/11/25 10:53 MB Desktop) PT-Bed Mobility Assessment Rolling Type of Rolling Bilateral Level of Assist Contact Guard Assistance Supine to Sit Supine to Sit Contact Guard Assistance Sit to Supine Sit to Supine Contact Guard Assistance PT-Transfer Assessment Sit to and From Stand Sit to and from Stand Contact Guard Assistance,1 Person Assistance,Use of Upper Extremities Equipment Transfer Assistive Device Gait Belt,Front Wheeled Walker Orthotic/Prosthetic Devices or Brace: Yes Transfers Transfer Destination Bed Transfer Technique Ambulation Transfer Ability Level of Assist Contact Guard Assistance,1 Person Assistance,Use of Upper Extremities Comments Mobility Comments Pt with transverse process fractures and sander fracture, PT reviews CT with MD and receives order for TLSO, brace obtained and donned with evert Liriano and jacobo pt in donning and use when up, pain reduced and mobility better with brace today Gait Assessment Gait Gait Assistance Required: Contact Guard Assist,1 Person Assist Distance (Feet) 30 Able to Maintain Weight Bearing Status Yes During Gait Assistive Devices Assistive Device Gait Belt,Front Wheeled Walker Orthotic/Prosthetic Devices or Brace: Yes Gait Deviations General Gait Pattern Antalgic,Decreased Stride Length,Decreased Feet Clearance Factors Limiting Gait Function Factors Limiting Gait Function Decreased Activity Tolerance, Decreased Strength,Pain Comments Gait Comments 30'x2 with RW, obtained RW for home and discussed HHPT, outpatient surgeon follow-up, mother assistance at home PT-Balance Assessment Sitting Balance and Reactions Static Sitting Balance Ability Fair Dynamic Sitting Balance Ability Fair Standing Balance and Reactions Static Standing Balance Ability Fair Dynamic Standing Balance Ability Fair Device Used RW and TLSO M5 PT-IP Objective Assessments Start: 01/10/25 16:34 Freq: Status: Active Protocol: Document 01/10/25 14:05 AB (Rec: 01/10/25 16:53 AB Desktop) Orientation Orientation/Cognition Level of Alertness Alert Orientation Name,Place,Situation Language Function Ability No Deficits Noted Memory Description Short Term Impaired Gross Range of Motion Lower Extremity ROM Assessment Within Functional Limits Strength Lower Extremity Strength Assessment Right Impaired Hip 3-/5 Knee 3+/5 Comments Strength Comments c/o R low back pain with RLE movement Coordination Assessment Gross Coordination Gross Coordination WNL Sensation Assessment Sensation Gross Sensation WNL Muscle Tone Muscle Tone WNL Yes M6 PT-IP Treatment Start: 01/10/25 16:34 Freq: Status: Active Protocol: Document 01/11/25 09:00 MB (Rec: 01/11/25 10:53 MB Desktop) Physical Therapy Treatment Education Education Provided Precautions,Safety Equipment Issued Equipment Type and Company [employer] brace and ed in donning and doffing and when to use Other Treatments Other Treatment Performed Use of RW with mobility M7 PT-IP Assessment and Plan Start: 01/10/25 16:34 Freq: Status: Active Protocol: Document 01/11/25 09:00 MB (Rec: 01/11/25 10:53 MB Desktop) PT Summary Assessment and Plan Potential Rehabilitation Potential Fair Status of Condition at Evaluation Evolving Summary Impairments Pain,ROM,Strength,Balance, Coordination,Bed Mobility, Transfers,Gait,Activity Tolerance Progress Towards Goals Progressing Toward Goals Assessment Summary Pt with transverse process fractures and sander fracture, PT reviews CT with MD and receives order for TLSO, brace obtained and donned with evert Liriano and ed pt in donning and use when up. Pt's pain was reduced and mobility better with brace today. Further RW training today. Per MD, ortho surgeon from [facility] recommended outpatient follow- up about spinal and sander fractures. Goals Bed Mobility Goal Independent Transfer Goal Independent,Front Wheeled Walker Gait Goal Independent,Front Wheel Walker Gait Distance 100 Other Goals Pt will ascend and descend 4 steps with left rail and 2 steps with LRAD and no more than CGA to allow safe home entrance. Days to Meet Goals 5 Frequency of Treatment Frequency Of Treatment Once a Day Treatment Plan Physical Therapy Treatment Plan Bed Mobility Training,Transfer Training,Gait Training, Therapeutic Exercise,Balance Retraining,Discharge Planning, Hot or Cold Pack,Neuromuscular Re-ed,Coordination Retraining ,Manual Therapy Other Recommendations and Next Treatment Stair and TLSO donning and Focus doffing training Precautions Lumbar Precautions Log Roll,No Twisting,Limit Bending,Lifting Restriction of 10 lbs Brace TLSO Recommendations To Nursing Amount of Assist Needed Standby Assistance Discharge Recommendations PT Discharge Recommendations Home with 05/03 Assist Available,Home Health Other Discharge Recommendations Delivered RW and TLSO Transportation Needs at Discharge Private Vehicle - PT assist 1
[2025-01-11] MEDS: ACETAMINOPHEN 325 MG TABLET 975 MG PO (11:34)
--- NOTE | 2025-01-11 19:17 | CM.DPNOTE ---
ED CAMPUS ADMINISTRATOR DCP Continued: Reviewed EMR and team rounds for pt?s medical status. Per ED Provider, patient still requiring pain medications for intractable pain. Provider to order MRI for possible tissue damage. Per RN, patient still requiring pain medications but able to work with PT today. Per PT, TLSO brace provided to patient and encouraging to get up in chair more often. Still no admitting diagnosis or safe discharge found - patient to board in ED until 48 hour and be reviewed for admission per social admit policy. Plan: Anticipating acute care admission at ~0400 on 01/12, hoping for safe discharge coordination to follow ([facility] Rehab vs. home with home health). CM Team will continue to follow for coordination of discharge plans. SANDRA Shelby
[2025-01-11] MEDS: DULOXETINE 30 MG CAPSULE PO (21:50)
[2025-01-11 22:00] VITALS: BP 131/84; PULSE 66; RESP 18; TEMP 36.6; O2SAT 96
[2025-01-12] MEDS: IBUPROFEN 400 MG TABLET PO ×4 (02:30→23:22)
[2025-01-12] MEDS: OXYCODONE IR 5 MG TABLET PO (02:31)
[2025-01-12] MEDS: MORPHINE 4 MG/ML INJ IV ×2 (03:05→05:01)
[2025-01-12 04:30] VITALS: BP 134/84; PULSE 60; RESP 20; TEMP 36.5; O2SAT 95
--- NOTE | 2025-01-12 05:01 | PM.HP.1 ---
History of Present Illness History of Present Illness Chief complaint: back pain Narrative: 54 years old female with COPD, prior lumbar fusion, chronic low back pain presented to the ER complaining of low back pain and hip pain after falling out of wheel trailer and rolling down 2-3 stairs. Denies any cauda equina symptoms. Denies any loss of consciousness or head injury. She also was complaining of neck pain. Denies any weakness or numbness of her extremities. The patient was given multiple medications in the ER without much relief and was decided to be admitted for pain control and physical therapy. CT of spine shows acute appearing fracture of the right transverse process of L1-L4. Prior posterior fusion of L3-L4 with interbody spacer. Hardware appears intact. Orthopedic surgery was consulted in the ED. [facility] [place] Medical History Lumbar stenosis with neurogenic claudication Degenerative disc disease Chronic cough Depression Chronic back pain Gastroesophageal reflux disease Dysthymic disorder Anxiety Fibromyalgia Tobacco dependence COPD (chronic obstructive pulmonary disease) Surgical History Anesthesia History of section (~01/2003) History of surgery on left wrist (~2014) History of foot surgery (~1984) History of cholecystectomy (~1985) History of hand surgery (~07/2019) S/P lumbar fusion (~01/2017) Family History Father History of heart disease Pacemaker Grandfather Loneliness Grandmother Stroke Grandfather Stroke Social History household members: significant other and none Meds Home Medications and Allergies Home Medications Medication Instructions Recorded Confirmed Type beclomethasone dipropionate 40 0.04 mg IH BID ##1 12/06/10 12/01/24 Rx mcg/actuation aerosol inhaler (Qvar) albuterol sulfate 90 mcg/actuation 12/09/18 12/01/24 History aerosol inhaler epinephrine 0.3 mg/0.3 mL 0.3 mg IM PRN PRN Allergic Reaction 12/09/18 12/01/24 History injection, auto-injector diclofenac sodium 1 % topical gel 2 g topical QID pain #100 grams 02/08/24 12/01/24 Rx (Voltaren Arthritis Pain) ibuprofen 800 mg tablet 800 mg PO Q8H #10 tabs 02/08/24 12/01/24 Rx tiotropium bromide 18 mcg capsule 1 cap inhalation DAILY 12/01/24 12/01/24 History with inhalation device tizanidine 2 mg tablet mg PO 12/01/24 12/01/24 History umeclidinium 62.5 mcg/actuation 1 inh inhalation DAILY 12/01/24 12/01/24 History blister powder for inhalation (Incruse Ellipta) duloxetine 30 mg capsule,delayed 30 mg PO .QHS #60 caps 12/02/24 Rx release (Cymbalta) Allergies Allergy/AdvReac Type Severity Reaction Status Date / Time Penicillins [PENICILLINS] Allergy Unknown Verified 12/01/24 11:32 bee venom protein (honey bee) AdvReac Intermediate Anaphylaxis Verified 12/01/24 11:32 Review of Systems Review of Systems ROS: Yes All systems reviewed with the patient and are negative except as otherwise documented Constitutional Constitutional: Reports as per HPI and Reports system reviewed and no additional complaints, except as documented Eyes Eyes: Reports as per HPI and Reports system reviewed and no additional complaints, except as documented ENT Ears, Nose, Mouth, and Throat: Yes as per HPI and Yes system reviewed and no additional complaints, except as documented Cardiovascular Cardiovascular: Reports system reviewed and no additional complaints, except as documented Respiratory Respiratory: Reports system reviewed and no additional complaints, except as documented Gastrointestinal Gastrointestinal: Reports system reviewed and no additional complaints, except as documented Genitourinary Genitourinary: Reports system reviewed and no additional complaints, except as documented Musculoskeletal Musculoskeletal: Reports system reviewed and no additional complaints, except as documented, Reports abnormal gait and Reports numbness Neurologic Neurologic: Reports system reviewed and no additional complaints, except as documented, Reports abnormal gait, Reports confusion and Reports numbness Psychiatric Psychiatric: Reports system reviewed and no additional complaints, except as documented and Reports confusion Exam Vital Signs (past 8 hours): - 01/11/25 22:00 01/12/25 04:30 Temperature 97.8 F 97.7 F Pulse Rate 66 60 Respiratory Rate 18 20 Blood Pressure 131/84 134/84 Pulse Oximetry 96 95 Oxygen Delivery Method Room Air Oxygen Flow Rate 0 Oxygen Delivery Method Room Air Oxygen Flow Rate 0 Const General: cooperative, comfortable and well developed Orientation: alert and oriented x3 [facility] Head: normal to inspection, normocephalic and atraumatic Face and sinus: normal facial exam Mouth: oral mucosae normal and moist mucous membranes Throat: posterior oropharynx normal Eyes General: appearance normal, both eyes and all related structures Pupils: PERRL EOM: EOM intact bilaterally Neck Neck: normal visual inspection and full ROM Chest Chest: normal inspection of the chest Resp Effort & Inspection: normal respiratory effort and able to speak in complete sentences Auscultation: clear to auscultation bilaterally Cardio Palpation: normal PMI Rate: regular rate Rhythm: regular rhythm Heart Sounds: S1 normal and S2 normal GI Inspection: normal to inspection Palpation: soft and no hepatosplenomegaly Auscultation: normal bowel sounds Skin General: no rashes or lesions noted Lesions: no lesions Rashes: no rashes Trauma: no lacerations or abrasions Neuro General: patient alert, patient awake, patient oriented x3 and no focal motor deficits Cranial Nerves: CN's II-XI intact bilaterally Cognition: normal cognition Speech: speech normal Gait: normal gait Motor: muscle tone normal throughout Sensory Exam: no sensory deficits noted Extrem General: full ROM and no calf tenderness Psych Appearance: grossly normal Mental Status: mental status grossly normal Speech and Movement: speech and movement normal Assessment & Plan Assessment & Plan narrative: Acute appearing fracture of the right transverse process of L1-L4 -IV Fluids -restart Duloxetine -NWB and Immobilization and elevation of his extremity -Orthopedic consult for F/U -Incentive spirometry -Pain medications as needed -Bowel regimen while on narcotics -Fall precaution -PT and OT evaluation on discharge COPD. Restart Qvar and albuterol as needed Care provided by Telehealth service using synchronized audio-video technology for this visit. Prior to the discussion the clinician obtained the patient's consent for Telehealth service. Supporting E/M code and modifier 95 for Telemedicine service documented. All requirements are met and documented. Time-Based Coding :: [TOTAL MINUTES] spent with patient and on the chart (including review of chart, obtaining history, exam, reviewing outside data, placing orders, documenting exam and treatment plan, and counseling patient) on [DATE]. Quality VTE Deep Vein Thrombosis/Pulmonary Embolism Present on Admission: No MIPS - Admit I confirm the patient?s Advance Care Plan is present, Code status is documented, Surrogate decision maker is in patient?s record [If Yes, STOP here]: Yes [facility] - Meds 'Current medications' to include all prescriptions, [id number] products, herbals, cannabis/cannabidiol products, and vitamin/mineral/dietary (nutritional) supplements. I have utilized all available resources to obtain, update, or review the patient?s current medications. [If Yes, STOP here]: Yes
[2025-01-12 05:04] VITALS: BMI 25.4
[2025-01-12] MEDS: OXYCODONE/ACETAMINOPHEN 5/325 TABLET 1 TAB PO ×4 (05:29→20:21)
[2025-01-12] MEDS: HYDROMORPHONE 1 MG INJ IV ×3 (06:25→20:36)
--- NOTE | 2025-01-12 06:52 | INF.NOTE ---
Pt arrived to room 204 around 0500 this am, pt was already in an in-patient bed, pt here due to unable to go back home due to pain , pt alert and oriented, pain has been a problem and due to it, unable to do an accurate skin assessment at the moment, pt receive, 4 MG Morphine IVP, 1 percocet and 1 MG of dilaudid IVP, pt still aware in the room and moaning from time to time but states that after the dilaudid she feels more relax.
[2025-01-12 07:00] VITALS: BP 113/77; PULSE 68; RESP 14; TEMP 36.1; O2SAT 98
--- NOTE | 2025-01-12 08:52 | P.HP_ITS ---
History of Present Illness History of Present Illness Date Patient Seen: 01/12/25 Chief complaint: Traumatic Fracture transverse process L1-L4 Narrative: Chief complaint: Severe back pain secondary to fracture of the transverse processes of L1-L4 on the right History of present illness: 54 years old female with COPD, prior lumbar fusion, chronic low back pain presented to the ER complaining of low back pain and hip pain after falling out of wheel trailer and rolling down 2-3 stairs. Denies any cauda equina symptoms. Denies any loss of consciousness or head injury. She also was complaining of neck pain. Denies any weakness or numbness of her extremities. The patient was given multiple medications in the ER without much relief and was decided to be admitted for pain control and physical therapy. CT of spine shows acute appearing fracture of the right transverse process of L1-L4. Prior posterior fusion of L3-L4 with interbody spacer. Hardware appears intact. Orthopedic surgery was consulted in the ED. Past medical, surgical and social history and objective findings at the bottom of the note Review of systems: No fever or chills weight loss No headache diplopia No difficulty swallowing No chest pain cough or shortness a breath No nausea vomiting abdominal pain No paresthesia paresis No loss of bowel or bladder Physical exam: Assessment and plan: Acute appearing fracture of the right transverse process of L1-L4 and fractured hardware of the left sander -for to transfer center for potential surgical revision -Pain medications as needed -Bowel regimen while on narcotics -Fall precaution -PT and OT evaluation on discharge COPD. Restart Qvar and albuterol as needed Time-Based Coding :: 55 minutes spent with patient and on the chart (including review of chart, obtaining history, exam, reviewing outside data, placing orders, documenting exam and treatment plan, and counseling patient) . [facility] Medical History Lumbar stenosis with neurogenic claudication Degenerative disc disease Chronic cough Depression Chronic back pain Gastroesophageal reflux disease Dysthymic disorder Anxiety Fibromyalgia Tobacco dependence COPD (chronic obstructive pulmonary disease) Surgical History Anesthesia History of section (~01/2003) History of surgery on left wrist (~2014) History of foot surgery (~1984) History of cholecystectomy (~1985) History of hand surgery (~07/2019) S/P lumbar fusion (~01/2017) Family History Father History of heart disease Pacemaker Grandfather Loneliness Grandmother Stroke Grandfather Stroke Social History household members: significant other and none alcohol intake: current Meds Home Medications and Allergies Home Medications Medication Instructions Recorded Confirmed Type albuterol sulfate 90 mcg/actuation 1 puff inhalation Q6HR 12/09/18 01/12/25 Hi story aerosol inhaler epinephrine 0.3 mg/0.3 mL 0.3 mg IM PRN PRN Allergic Reaction 12/09/18 01/12/25 History injection, auto-injector diclofenac sodium 1 % topical gel 2 g topical QID pain #100 grams 02/08/24 01/12/25 Rx (Voltaren Arthritis Pain) tiotropium bromide 18 mcg capsule 1 cap inhalation DAILY 12/01/24 01/12/25 History with inhalation device tizanidine 2 mg tablet 2 mg PO BID muscle spasm 12/01/24 01/12/25 History umeclidinium 62.5 mcg/actuation 1 inh inhalation DAILY 12/01/24 01/12/25 History blister powder for inhalation (Incruse Ellipta) duloxetine 30 mg capsule,delayed 30 mg PO .QHS #60 caps 12/02/24 01/12/25 Rx release (Cymbalta) beclomethasone dipropionate 40 0.04 mg IH BID asthma 01/12/25 01/12/25 History mcg/actuation aerosol inhaler Allergies Allergy/AdvReac Type Severity Reaction Status Date / Time Penicillins [PENICILLINS] Allergy Unknown Verified 12/01/24 11:32 bee venom protein (honey bee) AdvReac Intermediate Anaphylaxis Verified 12/01/24 11:32 Exam Vital Signs (past 8 hours): - 01/12/25 04:30 Temperature 97.7 F Pulse Rate 60 Respiratory Rate 20 Blood Pressure 134/84 Pulse Oximetry 95 Oxygen Flow Rate 0 Oxygen Delivery Method Room Air Oxygen Flow Rate 0 Assessment & Plan Time-Based Coding :: [TOTAL MINUTES] spent with patient and on the chart (including review of chart, obtaining history, exam, reviewing outside data, placing orders, documenting exam and treatment plan, and counseling patient) on [DATE]. Quality VTE Deep Vein Thrombosis/Pulmonary Embolism Present on Admission: No MIPS - Admit I confirm the patient?s Advance Care Plan is present, Code status is documented, Surrogate decision maker is in patient?s record [If Yes, STOP here]: Yes [facility] - Meds 'Current medications' to include all prescriptions, [id number] products, herbals, cannabis/cannabidiol products, and vitamin/mineral/dietary (nutritional) supplements. I have utilized all available resources to obtain, update, or review the patient?s current medications. [If Yes, STOP here]: Yes
[2025-01-12] MEDS: LORazepam 1 MG TABLET PO (09:33)
[2025-01-12] MEDS: ENOXAPARIN 30 MG/0.3 ML SYRINGE SUBCUT (09:33)
[2025-01-12] MEDS: LIDOCAINE 5% PATCH 1 EACH TOP (09:33)
[2025-01-12] MEDS: IPRATROPIUM 0.5 MG/2.5 ML NEB INH ×2 (12:34→21:22)
[2025-01-12 12:38] VITALS: PULSE 63; RESP 16; O2SAT 96
--- NOTE | 2025-01-12 15:35 | CM.DPNOTE ---
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 per UR RN, provider reports she may end up dc due to concerns with MRI results. PN in draft mode. P: pending transfer to higher level of care vs dc to [facility]. PASRR needed. will coordinate DCP as needed if does not transfer. MCR eligible 01/15. JUSTINO Hernandez
--- NOTE | 2025-01-12 15:45 | PT-IP ANOTE ---
PT reviews chart and MRI report that does not appear to chart picker the vertical sander fracture as seen on the CT images. PT speaks with Dr. Seymour who reports he may transfer pt out for further assessment given sander fracture and recommends d/c PT at this time. Will d/c PT order.
--- NOTE | 2025-01-12 15:49 | PT-IP ANOTE ---
PT completes three PT consult orders and leaves in the PT consult order that had orders for the TLSO and RW in them.
--- NOTE | 2025-01-12 16:51 | DI.MRI.S_ITS ---
PROCEDURE: MR LUMBAR SPINE WO CON INDICATIONS: traumatic injury - fall TECHNIQUE: Noncontrast sagittal T1 spin echo and T2 fast echo, sagittal STIR, and T2 fast spin echo through the lumbar spine. In cases with scoliosis, additional coronal T2 fast spin echo may be performed. COMPARISON: [facility], MR, MR LUMBAR SPINE WO CON, 12/05/2022, 11:34. FINDINGS: Image quality: Excellent. Alignment and Curvature: There is normal bony alignment. Remote posterior lateral sander and pedicle screw fixation of L3-L4. Bone Marrow: Marrow is of normal overall signal. No acute vertebral body compression fractures. Spinal Cord: Conus medullaris terminates at the L1 level. Visualized cord demonstrates normal signal and size. Paraspinous Soft Tissues: No paravertebral masses. T12-L1: Normal appearance. L1-L2: Diffuse disc bulge with mild superimposed central posterior disc protrusion/inferior disc extrusion, similar to previous. Borderline associated canal stenosis. L2-L3: Disc bulge. Facet and ligament hypertrophy. Mild canal stenosis. This has occurred since the previous study. No foraminal stenosis. L3-L4: Fused level. Likely left hemilaminectomy. No canal stenosis or foraminal stenosis. L4-L5: Disc bulge. Facet hypertrophy. No canal stenosis. Mild bilateral foraminal stenosis. L5-S1: Disc bulge. Facet hypertrophy. No canal stenosis or foraminal stenosis. IMPRESSION: 1. No acute bony abnormality. 2. Remote fusion at L3-L4. 3. Development of mild canal stenosis at L2-L3 since the previous study. 4. Stable findings at L1-L2 with borderline associated canal stenosis. There is mild posterior disc protrusion/extrusion. Dictated by: Dev Arzate M.D. on 01/12/2025 at 10:55 Approved by: Dev Arzate M.D. on 01/12/2025 at 11:01
[2025-01-12] MEDS: BACITRACIN OINT 0.9 GM PCKT 1 APPLIC TOP ×2 (18:34→20:25)
[2025-01-12] MEDS: DULOXETINE 30 MG CAPSULE PO (20:37)
[2025-01-12] MEDS: SODIUM CHLORIDE 0.9% FLUSH 10 ML IV (21:04)
[2025-01-12 21:22] VITALS: PULSE 64; RESP 16; O2SAT 97
[2025-01-12 21:40] VITALS: BP 107/53; PULSE 61; RESP 17; TEMP 36.2; O2SAT 96
[2025-01-13] MEDS: SODIUM CHLORIDE 0.9% FLUSH 10 ML IV ×4 (04:08→20:24)
[2025-01-13] MEDS: HYDROMORPHONE 1 MG INJ IV ×3 (04:08→20:22)
[2025-01-13] MEDS: OXYCODONE/ACETAMINOPHEN 5/325 TABLET 1 TAB PO (05:53)
[2025-01-13] MEDS: IBUPROFEN 400 MG TABLET PO ×3 (06:00→18:18)
[2025-01-13] MEDS: IPRATROPIUM 0.5 MG/2.5 ML NEB INH ×3 (07:35→15:21)
[2025-01-13 08:00] VITALS: BP 134/65; PULSE 61; RESP 15; TEMP 36.4; O2SAT 96
[2025-01-13] MEDS: LIDOCAINE 5% PATCH 1 EACH TOP (08:39)
[2025-01-13] MEDS: ENOXAPARIN 30 MG/0.3 ML SYRINGE SUBCUT (08:39)
[2025-01-13] MEDS: OXYCODONE IR 10 MG TABLET PO ×4 (09:03→21:32)
[2025-01-13] MEDS: ACETAMINOPHEN 325 MG TABLET 650 MG PO ×3 (09:04→21:32)
[2025-01-13] MEDS: BACITRACIN OINT 0.9 GM PCKT 1 APPLIC TOP ×2 (09:05→21:32)
[2025-01-13] MEDS: methocarbamoL 500 MG TABLET PO ×4 (09:06→21:33)
--- NOTE | 2025-01-13 10:49 | PC.NURSE ---
Late entry documentation in [facility] due to [employer] downtime
--- NOTE | 2025-01-13 14:44 | CM.DPNOTE ---
DCP note DATA PROCESSING CONSULTANT reviewed EMR per provider in morning rounds, pt no longer likely to transfer for higher level of care/spine surgery. DATA PROCESSING CONSULTANT met with pt in room and introduced self and role. pt resting in bed, reports being in significant amounts of pain. reports preference remains to dc to SNF. reports has mom/local children but they are not able to provide assistance and pt does not feel like she can manage her RV alone. DATA PROCESSING CONSULTANT reviewed [facility] SNF coverage. DATA PROCESSING CONSULTANT reviewed SNF options. pt expressed preference for [facility]. reports having to use bathroom, pushed call light. DATA PROCESSING CONSULTANT updated RN, will be at bedside as soon as done with other patient needs. DATA PROCESSING CONSULTANT emailed Ladonna from , happy to review. CC Hien kindly agreed to assit in sending clinicals. PASRR needed P: pending acceptance, anticipate dc to SNF [facility] ready Th01/15. CM team will continue to follow closely for DCP Coordination JUSTINO Hernandez
--- NOTE | 2025-01-13 16:21 | PM.PN.1 ---
Subjective Subjective Date Patient Seen: 01/13/25 Interval history: Chief complaint: Severe back pain secondary to fracture of the transverse processes of L1-L4 on the right History of present illness: 54 years old female with COPD, prior lumbar fusion, chronic low back pain presented to the ER complaining of low back pain and hip pain after falling out of wheel trailer and rolling down 2-3 stairs. Denies any cauda equina symptoms. Denies any loss of consciousness or head injury. She also was complaining of neck pain. Denies any weakness or numbness of her extremities. The patient was given multiple medications in the ER without much relief and was decided to be admitted for pain control and physical therapy. CT of spine shows acute appearing fracture of the right transverse process of L1-L4. Prior posterior fusion of L3-L4 with interbody spacer. Hardware appears intact. Orthopedic surgery was consulted in the ED. Past medical, surgical and social history and objective findings at the bottom of the note Review of systems: No fever or chills weight loss No headache diplopia No difficulty swallowing No chest pain cough or shortness a breath No nausea vomiting abdominal pain No paresthesia paresis No loss of bowel or bladder Physical exam: Acute distress HEENT unremarkable Unlabored respiration Extremities no edema No paresthesia Normal strength Assessment and plan: Acute appearing fracture of the right transverse process of L1-L4 and fractured hardware of the left sander -discussed with spine Neurosurgery at [facility]: There is no indication for surgical intervention -Pain medications as needed -Bowel regimen while on narcotics -Fall precaution -PT and OT evaluation on discharge COPD. Restart Qvar and albuterol as needed Time-Based Coding :: 35 minutes spent with patient and on the chart (including review of chart, obtaining history, exam, reviewing outside data, placing orders, documenting exam and treatment plan, and counseling patient) . Exam Vital Signs (past 8 hours): Fraction of Inspired Oxygen 21 SaO2/FiO2 Ratio 461 Oxygen Delivery Method Room Air Oxygen Flow Rate 0 PFSH Medical History Lumbar stenosis with neurogenic claudication Degenerative disc disease Chronic cough Depression Chronic back pain Gastroesophageal reflux disease Dysthymic disorder Anxiety Fibromyalgia Tobacco dependence COPD (chronic obstructive pulmonary disease) Surgical History Anesthesia History of section (~01/2003) History of surgery on left wrist (~2014) History of foot surgery (~1984) History of cholecystectomy (~1985) History of hand surgery (~07/2019) S/P lumbar fusion (~01/2017) Family History Father History of heart disease Pacemaker Grandfather Loneliness Grandmother Stroke Grandfather Stroke Social History household members: significant other and none alcohol intake: current Assessment & Plan Time-Based Coding :: [TOTAL MINUTES] spent with patient and on the chart (including review of chart, obtaining history, exam, reviewing outside data, placing orders, documenting exam and treatment plan, and counseling patient) on [DATE]. Quality VTE Deep Vein Thrombosis/Pulmonary Embolism Present on Admission: No
[2025-01-13] MEDS: DULOXETINE 30 MG CAPSULE PO (20:24)
[2025-01-13 23:59] VITALS: BP 115/67; PULSE 74; RESP 16; TEMP 36.1; O2SAT 95
[2025-01-14] MEDS: OXYCODONE IR 10 MG TABLET PO ×7 (00:11→23:51)
[2025-01-14] MEDS: IBUPROFEN 400 MG TABLET PO ×5 (00:12→23:51)
[2025-01-14] MEDS: ACETAMINOPHEN 325 MG TABLET 650 MG PO ×4 (03:55→20:24)
[2025-01-14] MEDS: HYDROMORPHONE 1 MG INJ IV (06:16)
[2025-01-14 08:00] VITALS: BP 119/57; PULSE 65; RESP 13; TEMP 36; O2SAT 98
[2025-01-14] MEDS: ENOXAPARIN 30 MG/0.3 ML SYRINGE SUBCUT (08:47)
[2025-01-14] MEDS: LIDOCAINE 5% PATCH 1 EACH TOP ×2 (08:47→12:53)
[2025-01-14] MEDS: IPRATROPIUM 0.5 MG/2.5 ML NEB INH ×3 (08:48→20:07)
[2025-01-14] MEDS: BACITRACIN OINT 0.9 GM PCKT 1 APPLIC TOP ×2 (08:48→20:24)
[2025-01-14] MEDS: methocarbamoL 500 MG TABLET PO ×4 (08:53→20:24)
[2025-01-14] MEDS: SODIUM CHLORIDE 0.9% FLUSH 10 ML IV ×2 (09:13→20:28)
--- NOTE | 2025-01-14 12:19 | P.PN_ITS ---
Subjective Subjective Date Patient Seen: 01/14/25 Interval history: Chief complaint: Severe back pain secondary to fracture of the transverse processes of L1-L4 on the right History of present illness: 54 years old female with COPD, prior lumbar fusion, chronic low back pain presented to the ER complaining of low back pain and hip pain after falling out of wheel trailer and rolling down 2-3 stairs. Denies any cauda equina symptoms. Denies any loss of consciousness or head injury. She also was complaining of neck pain. Denies any weakness or numbness of her extremities. The patient was given multiple medications in the ER without much relief and was decided to be admitted for pain control and physical therapy. CT of spine shows acute appearing fracture of the right transverse process of L1-L4. Prior posterior fusion of L3-L4 with interbody spacer. Left sander is also fractured. Orthopedic surgery was consulted in the ED. Hospital course: 01/13-01/14: Patient managing with physical therapy but there is significant pain with the changing in position sitting or standing no paresis and no paresthesia no loss of bowel or bladder Review of systems: No fever or chills weight loss No headache diplopia No difficulty swallowing No chest pain cough or shortness a breath No nausea vomiting abdominal pain No paresthesia paresis No loss of bowel or bladder Physical exam: Acute distress HEENT unremarkable Unlabored respiration Extremities no edema No paresthesia Normal strength Assessment and plan: Acute appearing fracture of the right transverse process of L1-L4 and fractured hardware of the left sander * -discussed with spine Neurosurgery at [facility]: There is no indication for surgical intervention * -Pain medications as needed * -Bowel regimen while on narcotics * -Fall precaution * -PT and OT evaluation appreciated COPD. * Restart Qvar and albuterol as needed DVT prophylaxis: * Enoxaparin Code status: * Full code Disposition: * Discharge to custodial 01/15 Time-Based Coding :: 35 minutes spent with patient and on the chart (including review of chart, obtaining history, exam, reviewing outside data, placing orders, documenting exam and treatment plan, and counseling patient) . Exam Vital Signs (past 8 hours): - 01/14/25 08:00 Temperature 96.8 F L Pulse Rate 65 Respiratory Rate 13 Blood Pressure 119/57 L Pulse Oximetry 98 Oxygen Flow Rate 0 Fraction of Inspired Oxygen 21 SaO2/FiO2 Ratio 461 Oxygen Delivery Method Room Air Oxygen Flow Rate 0 PFSH Medical History Lumbar stenosis with neurogenic claudication Degenerative disc disease Chronic cough Depression Chronic back pain Gastroesophageal reflux disease Dysthymic disorder Anxiety Fibromyalgia Tobacco dependence COPD (chronic obstructive pulmonary disease) Surgical History Anesthesia History of section (~01/2003) History of surgery on left wrist (~2014) History of foot surgery (~1984) History of cholecystectomy (~1985) History of hand surgery (~07/2019) S/P lumbar fusion (~01/2017) Family History Father History of heart disease Pacemaker Grandfather Loneliness Grandmother Stroke Grandfather Stroke Social History household members: significant other and none alcohol intake: current Assessment & Plan Time-Based Coding :: [TOTAL MINUTES] spent with patient and on the chart (including review of chart, obtaining history, exam, reviewing outside data, placing orders, documenting exam and treatment plan, and counseling patient) on [DATE]. Quality VTE Deep Vein Thrombosis/Pulmonary Embolism Present on Admission: No
--- NOTE | 2025-01-14 12:24 | CM.DPNOTE ---
DCP note LEARNING DESIGNER reviewed EMR per Ladonna from , can accept once MCR ready. (tomorrow 01/15),. transport scheduled for 2:15pm. LEARNING DESIGNER emailed updated PT notes, OT eval pending. RN KINDLY agreed to update pt for this LEARNING DESIGNER on dc timeline plans. LEARNING DESIGNER completed PASRR, hospitalist signed PASRR. P: anticipate dc tomorrow to at 1415. CM team will continue to follow as needed for DCP coordination JUSTINO Hernandez
--- NOTE | 2025-01-14 12:27 | PT.IPTN ---
Current Diagnoses Unspecified displaced fracture of second cervical vertebra, initial encounter for closed fracture (01/12/25) Physical Therapy Treatment Note M2 PT-IP Current Condition Start: 01/10/25 16:34 Freq: Status: Active Protocol: Document 01/10/25 14:05 AB (Rec: 01/10/25 16:53 AB Desktop) Physical Therapy Current Condition Current Condition Evaluation Date 01/10/25 Treatment Diagnosis fall; R L1-4 transverse processes fx; difficulty in walking Onset Date 01/10/25 M3 PT-IP Subjective Start: 01/10/25 16:34 Freq: Status: Active Protocol: Document 01/13/25 12:19 KJ (Rec: 01/14/25 12:27 KJ Laptop) Subjective Physical Therapy Visit Type Type Treatment Note Visit Start Time 14:15 Visit Stop Time 14:43 Physical Therapy Visit Comments Patient Comments Pt reports significant decrease in pain after receiving dilaudid, although she has substantial pain when the TLSO is removed. Patient Goals Pt wishes to go to SNF to regain independence before going home. Therapy Pain Assessment Pain Present Pain Present Pain Reported Location Right Back Description Aching,Acute Pain Behaviors Facial Grimacing,[place] Pain Management Re-positioning Techniques M4 PT-IP Mobility and Gait Start: 01/10/25 16:34 Freq: Status: Active Protocol: Document 01/14/25 12:19 KJ (Rec: 01/14/25 12:27 KJ Laptop) PT-Bed Mobility Assessment Rolling Type of Rolling Log Rolling Level of Assist Independent Supine to Sit Supine to Sit Contact Guard Assistance Sit to Supine Sit to Supine Minimal Assistance PT-Transfer Assessment Sit to and From Stand Sit to and from Contact Guard Assistance Stand Equipment Transfer Assistive Front Wheeled Walker Device Orthotic/Prosthetic Yes Devices or Brace: Transfers Transfer Destination Chair Transfer Technique Stand Step Pivot Transfer Ability Level of Assist Contact Guard Assistance Gait Assessment Gait Gait Assistance Contact Guard Assist Required: Distance (Feet) 50 Able to Maintain Yes Weight Bearing Status During Gait Assistive Devices Assistive Device Gait Belt,Front Wheeled Walker Orthotic/Prosthetic Yes Devices or Brace: Gait Deviations General Gait Pattern Decreased Stride Length,Decreased Feet Clearance Factors Limiting Gait Function Factors Limiting Decreased Activity Tolerance,Limited Range of Motion, Gait Function Pain Comments Gait Comments has increased pain with weightbearing during ambulation . pt reports trying to bear weight on the RLE but needing to use the walker to support some of her body weight PT-Balance Assessment Sitting Balance and Reactions Static Sitting Good Balance Ability Dynamic Sitting Good Balance Ability Standing Balance and Reactions Static Standing Good Balance Ability Dynamic Standing Fair Balance Ability M5 PT-IP Objective Assessments Start: 01/10/25 16:34 Freq: Status: Active Protocol: Document 01/14/25 12:19 KJ (Rec: 01/14/25 12:27 KJ Laptop) Orientation Orientation/Cognition Level of Alertness Alert Orientation Name,Age,Birthday Safety Awareness Understands Safety Issues Memory Description No Deficits Noted M6 PT-IP Treatment Start: 01/10/25 16:34 Freq: Status: Active Protocol: Document 01/14/25 12:19 KJ (Rec: 01/14/25 12:27 KJ Laptop) Physical Therapy Treatment Education Education Provided Precautions,Safety Brace Education [place],Patient Equipment Issued Equipment Type and TLSO Company Other Treatments Other Treatment Worked with patient to don and doff TLSO in sitting at Performed eob M7 PT-IP Assessment and Plan Start: 01/10/25 16:34 Freq: Status: Active Protocol: Document 01/14/25 12:19 KJ (Rec: 01/14/25 12:27 KJ Laptop) PT Summary Assessment and Plan Potential Rehabilitation Excellent Potential Status of Condition Evolving at Evaluation Summary Impairments Pain,Bed Mobility,Transfers,Gait,Activity Tolerance Progress Towards Progressing Toward Goals Goals Assessment Summary Ambulation improving after administration of pain medication; still quite painful to don/doff TLSO requiring assistance and cuing. Goals Bed Mobility Goal Independent Transfer Goal Independent Gait Goal Independent Gait Distance 150' Other Goals Ascend/descend 4 steps with rail Frequency of Treatment Frequency Of Once a Day Treatment Treatment Plan Physical Therapy Gait Training,Therapeutic Exercise Treatment Plan Other Continue to work on independence in use of TLSO, start Recommendations and to work on uneven surfaces and stairs. Next Treatment Focus Recommendations To Nursing Amount of Assist 1 Person Assist Needed Discharge Recommendations PT Discharge SNF Rehab Recommendations
--- NOTE | 2025-01-14 14:08 | PT.IPTN ---
Current Diagnoses Unspecified displaced fracture of second cervical vertebra, initial encounter for closed fracture (01/12/25) Physical Therapy Treatment Note M2 PT-IP Current Condition Start: 01/10/25 16:34 Freq: Status: Active Protocol: Document 01/10/25 14:05 AB (Rec: 01/10/25 16:53 AB Desktop) Physical Therapy Current Condition Current Condition Evaluation Date 01/10/25 Treatment Diagnosis fall; R L1-4 transverse processes fx; difficulty in walking Onset Date 01/10/25 M3 PT-IP Subjective Start: 01/10/25 16:34 Freq: Status: Active Protocol: Document 01/14/25 14:01 KJ (Rec: 01/14/25 14:07 KJ [id number]) Subjective Physical Therapy Visit Type Type Treatment Note Visit Start Time 13:29 Visit Stop Time 13:58 Physical Therapy Visit Comments Patient Comments co-treat with OT Patient Goals to be independent without pain Therapy Pain Assessment Pain When Pain Assessed During Mobility Pain Present Pain Present Pain Reported Location Right Back Intensity 8 Description Aching Pain Behaviors Facial Grimacing Pain Management Re-positioning Techniques M4 PT-IP Mobility and Gait Start: 01/10/25 16:34 Freq: Status: Active Protocol: Document 01/14/25 14:01 KJ (Rec: 01/14/25 14:07 KJ [id number]) PT-Bed Mobility Assessment Rolling Type of Rolling Log Rolling Level of Assist Contact Guard Assistance Supine to Sit Supine to Sit Contact Guard Assistance Sit to Supine Sit to Supine Minimal Assistance PT-Transfer Assessment Sit to and From Stand Sit to and from Contact Guard Assistance Stand Gait Assessment Gait Gait Assistance Minimum Assistance Required: Distance (Feet) 50 Able to Maintain Yes Weight Bearing Status During Gait Assistive Devices Assistive Device Front Wheeled Walker Orthotic/Prosthetic Yes Devices or Brace: Gait Deviations General Gait Pattern Decreased Stride Length,Step-to Gait Factors Limiting Gait Function Factors Limiting Pain Gait Function Comments Gait Comments Decreased weight bearing on RLE in sitting and standing . Min assist to prevent posterior lean. PT-Balance Assessment Sitting Balance and Reactions Static Sitting Good Balance Ability Dynamic Sitting Good Balance Ability Standing Balance and Reactions Static Standing Good Balance Ability Dynamic Standing Fair Balance Ability M5 PT-IP Objective Assessments Start: 01/10/25 16:34 Freq: Status: Active Protocol: Document 01/14/25 14:01 KJ (Rec: 01/14/25 14:07 KJ [id number]) Orientation Orientation/Cognition Level of Alertness Alert Orientation Name,Age,Birthday Safety Awareness Understands Safety Issues Memory Description No Deficits Noted M6 PT-IP Treatment Start: 01/10/25 16:34 Freq: Status: Active Protocol: Document 01/14/25 14:01 KJ (Rec: 01/14/25 14:07 KJ [id number]) Physical Therapy Treatment Education Education Provided Safety Brace Education [place] Equipment Issued Equipment Type and TLSO Company Other Treatments Other Treatment Worked on balance during ADLs Performed M7 PT-IP Assessment and Plan Start: 01/10/25 16:34 Freq: Status: Active Protocol: Document 01/14/25 14:01 KJ (Rec: 01/14/25 14:07 KJ [id number]) PT Summary Assessment and Plan Potential Rehabilitation Excellent Potential Status of Condition Evolving at Evaluation Summary Impairments Pain,Bed Mobility,Transfers,Gait,Activity Tolerance Progress Towards Progressing Toward Goals Goals Assessment Summary Still with significant pain which limits functional tasks. Tendency to lean backward during ADLs with risk of LOB. Goals Bed Mobility Goal Independent Transfer Goal Independent Gait Goal Independent Gait Distance 150 Other Goals Ascend/descend 4 steps w/rail Frequency of Treatment Frequency Of Once a Day Treatment Treatment Plan Physical Therapy Bed Mobility Training,Transfer Training,Gait Training, Treatment Plan Therapeutic Exercise Recommendations To Nursing Amount of Assist 1 Person Assist Needed Discharge Recommendations PT Discharge SNF Rehab Recommendations Transportation Needs Private Vehicle at Discharge
--- NOTE | 2025-01-14 14:18 | OT.IP.EVAL ---
Current Diagnoses Unspecified displaced fracture of second cervical vertebra, initial encounter for closed fracture (01/12/25) Past Medical History (Last Reviewed 01/10/25 @ 04:18 by Cecy Paulino DO) Anxiety Chronic back pain Chronic cough COPD (chronic obstructive pulmonary disease) Degenerative disc disease Depression Dysthymic disorder Fibromyalgia Gastroesophageal reflux disease Lumbar stenosis with neurogenic claudication Tobacco dependence Surgical History (Last Reviewed 01/10/25 @ 04:18 by Cecy Paulino DO) Anesthesia History of section (~01/2003) History of cholecystectomy (~1985) History of foot surgery (~1984) History of hand surgery (~07/2019) History of surgery on left wrist (~2014) S/P lumbar fusion (~01/2017) Occupational Therapy Inpatient Evaluation/Re-Eval M1 PT/OT-IP Prior Functional Status Start: 01/10/25 16:34 Freq: Status: Active Protocol: Document 01/14/25 17:07 [facility] (Rec: 01/14/25 17:42 [facility] Desktop) Medical Review Prior Functional Status Medical History Yes Reviewed Communication able to make needs known Mobility and Gait pt stated that she was independent with all mobilities and ambulation without AD Activities of Daily Prior pt was completely independent and able to take Living and IADL's care of her dogs, chickens, and garden. Social History Household Members significant other,none Living Arrangements RV Number of Floors ( Two Floors Floors) Number of Stairs To 4 steps L rail ascending to enter Enter/Railing? has 2 steps down without rails to bedroom Home Environment Standard Height Toilet,Tub/Shower Home Equipment Hand Held Shower,Grab Bars In Shower Additional Social pt's BF is currently in [place] attending to his History Comment family's needs and will there for at least 2 weeks per pt M2 OT-IP Current Condition Start: 01/14/25 17:07 Freq: Status: Active Protocol: Document 01/14/25 17:07 [facility] (Rec: 01/14/25 17:42 [facility] Desktop) Occupational Therapy Current Condition Current Condition Evaluation Date 01/14/25 Treatment Diagnosis Fall R L1-L4 traverse process fracture Diagnosis Onset Date 01/12/25 Post Operative Precautions Lumbar Precautions Log Roll,No Twisting,Limit Bending,Lifting Restriction of 10 lbs,Gait Belt above Incisional Area Other Precautions TLSO when out of bed. Weight Bearing Status Weight Bearing Weight Bear as Tolerated Status M3 OT- IP Subjective and Pain Start: 01/14/25 17:07 Freq: Status: Active Protocol: Document 01/14/25 17:07 [facility] (Rec: 01/14/25 17:42 [facility] Desktop) OT- Subjective Occupational Therapy Visit Type Type Initial Evaluation Visit Start Time 13:30 Visit Stop Time 14:18 Occupational Therapy Visit Comments Patient Comments Pt agreed to get up to use the bathroom and do grooming and oral care needs. Patient/Caregiver TO get better. Goals OT Pain Assessment Pain When Pain Assessed During Mobility Pain Present Pain Present Pain Reported Location Right Back Intensity 7 M4 OT- IP ADL's Start: 01/14/25 17:07 Freq: Status: Active Protocol: Document 01/14/25 17:07 [facility] (Rec: 01/14/25 17:42 [facility] Desktop) OT [id number] General Evaluation Self-Feeding Ability Independent OT ADL-Grooming General Evaluation Grooming Ability Minimal Assistance Areas Needing Retrieving/Set-up of Grooming Items,Combing/Brushing Assistance Hair Comments OT Grooming Comments Pt having to heavily use arm on the counter for balance and not able to let go long enough to put her hair up in a pony tail at this time and unsteady on her feet. OT ADL-Oral Care General Eval Oral Care Ability Standby Assistance Areas of Assistance Retrieving/Set-Up of Items Comments Oral Care Comments Pt able to do while standing with the FWW in front of her. OT ADL-Dressing General Eval Upper Body Dressing Maximum Assistance Ability Lower Body Dressing Maximum Assistance Ability Areas Needing Socks,Orthosis/Prosthesis Assistance Comments OT Dressing Comments Able to show pt use of LB dressing equipment and needing assist to renee/doff her TLSO at this time. OT ADL-Toileting General Evaluation Toileting Ability Moderate Assistance Areas Needing Manage Clothing,Perform Perineal Hygiene Assistance Comments OT Toileting Pt not able to reach back to be able to wipe at this Comments time due to having the brace on. Educated pt on use of toilet paper aid, wipes, or may need assist until able to move better. OT ADL-Bathing Comments OT Bathing Comments Nursing staff assisted pt with a shower earlier. M5 OT- IP IADL's Start: 01/14/25 17:07 Freq: Status: Active Protocol: Document 01/14/25 17:07 [facility] (Rec: 01/14/25 17:42 [facility] Desktop) OT-Instrumental Activities of Daily Living Deficits IADL Deficits Deficits Identified Home Safety Awareness Awareness of Need Good Awareness for Assistance at Home Ability to Problem Able to Problem Solve Solve Emergency Situations Home Safety Comments At this time pt is aware not able to care fore herself and will need assist. Medication Management Medication No Deficits Identified Management Money Management Money Management No Deficits Identified Meal Preparation Meal Preparation Pt will need assist. Comments Reinsurance Analyst Reinsurance Analyst Pt will need assist. Comments M6 OT- IP Functional Cognition Start: 01/14/25 17:07 Freq: Status: Active Protocol: Document 01/14/25 17:07 [facility] (Rec: 01/14/25 17:42 [facility] Desktop) Cognitive Factors Limiting Selfcare Function Cognitive Ability Level of Alertness Alert Patient Orientation Name,Day of Week,Situation Attention Span Capable of Focused Attention,Capable of Sustained Ability Attention Ability to Follow Able to Follow Multi-Step Commands Commands Cognitive Comments Cognitive Assessment Pt able to follow commands for ADl and mobility needs. Comments OT- Vision and Hearing OT- Hearing Assessment OT- Hearing WFL Assessment OT- Vision Assessment Visual Acuity Glasses All The Time Visual Attentiveness WFL Occular Pursuits WFL M7 OT- IP Mobility and Balance Start: 01/14/25 17:07 Freq: Status: Active Protocol: Document 01/14/25 17:07 [facility] (Rec: 01/14/25 17:42 [facility] Desktop) OT- Bed Mobility Assessment Supine to Sit Supine to Sit Assist Contact Guard Assistance Sit to Supine Sit to Supine Assist Contact Guard Assistance OT-Transfer Assessment Sit to and From Stand Sit to and from Contact Guard Assistance,Minimal Assistance Stand Transfers Transfer Ability Contact Guard Assistance,Minimal Assistance Technique Transfer Destination Bed,Toilet Transfer Technique Stand Step Pivot Devices Transfer Assistive Gait Belt,Front Wheeled Walker Devices Comments Mobility Comments CGA to stand and for her balance when walking with the FWW as pt is a little unsteady on her feet. Pt needing MICHAEL for balance when standing and trying to put up her hair in a pony tail. Pt needing more assist to stand from lower surfaces. OT- Balance Assessment Sitting Balance and Reactions Static Sitting Good Balance Ability Dynamic Sitting Good Balance Ability Standing Balance and Reactions Static Standing Fair Balance Ability Dynamic Standing Fair Balance Ability M8 OT- IP Objective Assessments Start: 01/14/25 17:07 Freq: Status: Active Protocol: Document 01/14/25 17:07 [facility] (Rec: 01/14/25 17:42 [facility] Desktop) OT Gross Range of Motion Upper Extremity Range of Motion Assessment Within Functional Limits OT Strength Comments Strength Comments NT due to transverse spinal fx. M9 OT- IP Assessment and Plan Start: 01/14/25 17:07 Freq: Status: Active Protocol: Document 01/14/25 17:07 [facility] (Rec: 01/14/25 17:42 [facility] Desktop) OT Summary Assessment and Plan Potential Rehabilitation Excellent Potential Analytic Complexity Moderate at Evaluation Summary OT Impairments Pain,Strength,Balance,Functional Mobility,Grooming, Dressing,Toileting,Bathing,Toilet Transfers,Shower Transfers,Activity Tolerance Progress Towards Progressing Toward Goals Goals Assessment Summary Pt MOD complexity and main barriers are multiple steps in her RV, now needing to use a FWW, needing assist to put her hair up as unable to stand without support on her hands on the FWW/surfaces, unable to reach if having a BM, and unsteady on her feet. Pt would greatly benefit from skilled rehab at this time. Goals Self-Feeding Goal Independent Grooming Goal Independent Dressing Goal Independent Toileting Goal Independent Bathing Goal Standby Assistance Toilet Transfer Goal Independent Shower Transfer Goal Standby Assistance Days to Meet Goals 15 Frequency of Treatment Other frequency 5x/week Treatment Plan OT Treatment Plan ADL Training,Functional Mobility,Patient/Family Education,Discharge Planning Discharge Recommendations OT Discharge SNF Rehab Recommendations Home Equipment Needs BSC, LB dressing equipment, tub bench, wc? Transportation Needs Private Vehicle,Wheelchair/Cabulance at Discharge
[2025-01-14 20:00] VITALS: BP 119/69; PULSE 65; RESP 16; TEMP 36.3; O2SAT 96
[2025-01-14 20:08] VITALS: PULSE 68; RESP 20; O2SAT 98
[2025-01-14] MEDS: DULOXETINE 30 MG CAPSULE PO (20:23)
[2025-01-15] MEDS: ACETAMINOPHEN 325 MG TABLET 650 MG PO ×2 (02:48→10:16)
[2025-01-15] MEDS: OXYCODONE IR 10 MG TABLET PO ×2 (02:48→12:18)
[2025-01-15] MEDS: HYDROMORPHONE 1 MG INJ IV ×2 (03:49→10:16)
[2025-01-15] MEDS: SODIUM CHLORIDE 0.9% FLUSH 10 ML IV ×2 (03:49→07:54)
[2025-01-15 07:30] VITALS: BP 152/71; PULSE 73; RESP 13; TEMP 36.1; O2SAT 100
[2025-01-15] MEDS: ENOXAPARIN 30 MG/0.3 ML SYRINGE SUBCUT (07:53)
[2025-01-15] MEDS: methocarbamoL 500 MG TABLET PO ×2 (07:53→14:08)
[2025-01-15] MEDS: OXYCODONE/ACETAMINOPHEN 5/325 TABLET 1 TAB PO (07:53)
[2025-01-15] MEDS: BACITRACIN OINT 0.9 GM PCKT 1 APPLIC TOP (07:54)
[2025-01-15] MEDS: LIDOCAINE 5% PATCH 1 EACH TOP (09:00)
[2025-01-15 09:18] VITALS: PULSE 73; RESP 16; O2SAT 100
[2025-01-15] MEDS: IPRATROPIUM 0.5 MG/2.5 ML NEB INH (09:18)
--- NOTE | 2025-01-15 10:18 | P.DS_ITS ---
History of Present Illness History of Present Illness Chief complaint: Traumatic Fracture transverse process L1-L4 Narrative: From H&P: 54 years old female with COPD, prior lumbar fusion, chronic low back pain presented to the ER complaining of low back pain and hip pain after falling out of wheel trailer and rolling down 2-3 stairs. Denies any cauda equina symptoms. Denies any loss of consciousness or head injury. She also was complaining of neck pain. Denies any weakness or numbness of her extremities. The patient was given multiple medications in the ER without much relief and was decided to be admitted for pain control and physical therapy. CT of spine shows acute appearing fracture of the right transverse process of L1-L4. Prior posterior fusion of L3-L4 with interbody spacer. Hardware appears intact. Orthopedic surgery was consulted in the ED. Discharge Providers Provider Date of admission: 01/12/25 03:42 Discharge Date: 01/15/25 Primary care physician: Walker Machado MD Consults: 01/10/25 10:13 Consult to METAL MIXER - Tax Compliance Representative Stat Comment: Tax Compliance Representative Consult needed for:: Other reason (Comment) Comment: fall with spine fractures, too painful to care for self at home. rehab desired 01/10/25 12:55 Consult to Physical Therapy Evaluate & Treat Comment: Physician Instructions: Evaluate and Treat Consult to Physical Therapy Evaluate & Treat Comment: Physician Instructions: Evaluate and Treat 01/11/25 05:17 Consult to Physical Therapy Evaluate & Treat Comment: please help with mobilization Physician Instructions: Evaluate and Treat 01/11/25 09:35 Consult to Physical Therapy Evaluate & Treat Comment: TLSO and rolling walker for home Physician Instructions: Evaluate and Treat 01/12/25 05:06 Consult to Discharge Planning Routine Comment: Consult to Physical Therapy Evaluate & Treat Comment: Physician Instructions: Evaluate and Treat 01/14/25 10:59 Consult to Occupational Therapy Evaluate & Treat Comment: Physician Instructions: Evaluate and treat Discharge provider: Rj Gatica MD Summary Hospital Course Discharge Diagnosis: Acute appearing fracture of the right transverse process of L1-L4 and fractured hardware of the left sander, negative MRI. * -discussed with spine Neurosurgery at [facility]: There is no indication for surgical intervention * COPD. * Restart Qvar and albuterol as needed Fibromyalgia Anxiety Depression Tobacco dependence Hospital Course: Hospital course: 01/13-01/14: Patient managing with physical therapy but there is significant pain with the changing in position sitting or standing no paresis and no paresthesia no loss of bowel or bladder Status at Discharge Cognitive/behavioral status at discharge: oriented Functional status at discharge: uses cane/walker Overall status at discharge: patient is progressing back to baseline Time Spent with Patient Time spent: Greater than 30 minutes Exam Vital Signs (past 8 hours): - 01/15/25 07:30 01/15/25 09:18 Temperature 97.0 F L Pulse Rate 73 73 Respiratory Rate 13 16 Blood Pressure 152/71 H Pulse Oximetry 100 100 Oxygen Delivery Method Room Air Oxygen Flow Rate 0 Fraction of Inspired Oxygen 21 SaO2/FiO2 Ratio 466 Oxygen Delivery Method Room Air Oxygen Flow Rate 0 Narrative Exam Narrative: NAD, alert and oriented. Fluent speech. Lungs are clear, normal rate and effort. Heart is regular, no murmur gallop or rub. Abdomen is soft, non distended. Extremities are free of edema. Objective Imaging Multiple studies:: Radiologist's impression: Lumbar spine MRI: 1. No acute bony abnormality. 2. Remote fusion at L3-L4. 3. Development of mild canal stenosis at L2-L3 since the previous study. 4. Stable findings at L1-L2 with borderline associated canal stenosis. There is mild posterior disc protrusion/extrusion. Pelvis CT: Negative for fracture or dislocation. Lumbar spine CT: Right L1 through L4 transverse process fractures. L3-L4 postoperative hardware, with the left-sided vertical fixation sander fractured. Additional findings: Right L5 pars defect [facility] Medical History Lumbar stenosis with neurogenic claudication Degenerative disc disease Chronic cough Depression Chronic back pain Gastroesophageal reflux disease Dysthymic disorder Anxiety Fibromyalgia Tobacco dependence COPD (chronic obstructive pulmonary disease) Surgical History Anesthesia History of section (~01/2003) History of surgery on left wrist (~2014) History of foot surgery (~1984) History of cholecystectomy (~1985) History of hand surgery (~07/2019) S/P lumbar fusion (~01/2017) Family History Father History of heart disease Pacemaker Grandfather Loneliness Grandmother Stroke Grandfather Stroke Social History household members: significant other and none alcohol intake: current Discharge Assessment & Plan Assessment and Plan Assessment: Acute appearing fracture of the right transverse process of L1-L4 and fractured hardware of the left sander, negative MRI. * -discussed with spine Neurosurgery at [facility]: There is no indication for tamika gical intervention * COPD. * Restart Qvar and albuterol as needed Fibromyalgia Anxiety Depression Tobacco dependence Plan of Treatment: [facility] for ongoing pain control and rehabilitation, [facility]. Discharge Plan Discharge Plan Patient Disposition: SNF Transfer to: [facility] Under care of provider: SNF Provider Provider Discharge Comment: Stable for discharge to [facility]. Ongoing pain control and rehabilitation efforts. Discharge orders & Medications Prescriptions: New methocarbamol 500 mg Tablet 500 mg PO QID Qty: 30 0RF lidocaine 5 % Adhesive Patch,Medicated 1 patch topical BEDTIME Qty: 30 0RF ibuprofen 400 mg Tablet 400 mg PO Q6HR Qty: 30 0RF oxycodone 10 mg Tablet 10 mg PO Q3HR PRN (Reason: Pain, Severe (7-10)) Qty: 15 0RF acetaminophen 325 mg Tablet 650 mg PO Q6H Qty: 30 0RF Continued diclofenac sodium [Voltaren Arthritis Pain] 1 % gel 2 g topical QID Qty: 100 0RF Rx Instructions: apply to right side over location of pain duloxetine [Cymbalta] 30 mg capsule,delayed release(DR/EC) 30 mg PO .QHS Qty: 60 3RF epinephrine 0.3 mg/0.3 mL auto-injector 0.3 mg IM PRN PRN (Reason: Allergic Reaction) albuterol sulfate 90 mcg/actuation HFA aerosol inhaler 1 puff inhalation Q6HR beclomethasone dipropionate 40 MCG/PUFF aerosol 0.04 mg IH BID tizanidine 2 mg tablet 2 mg PO BID Incruse Ellipta 62.5 mcg/actuation blister with device 1 inh inhalation DAILY tiotropium bromide 18 mcg capsule, w/inhalation device 1 cap inhalation DAILY Follow up/Referrals: Walker Machado MD [Primary Care Provider, Internal Medicine] Discharge Health Status Multidrug resistant organism: No MDRO Diet/Activity/Treatments Diet: Regular Activity: As tolerated. Special Rehabilitation Services Reason for rehabilitation: Recovery r/t decondition Rehab type: Physical therapy and Occupational therapy Visit Report/Discharge Packet Stand Alone Forms: Patient Portal/API Discharge Data Primary Care Provider: Walker Machado VTE Deep Vein Thrombosis/Pulmonary Embolism Present on Admission: No
[2025-01-15] MEDS: IBUPROFEN 400 MG TABLET PO (12:19)
--- NOTE | 2025-01-15 13:35 | OT.IP.TRT ---
Current Diagnoses Unspecified displaced fracture of second cervical vertebra, initial encounter for closed fracture (01/12/25) Occupational Therapy Treatment Note M2 OT-IP Current Condition Start: 01/14/25 17:07 Freq: Status: Active Protocol: Document 01/14/25 17:07 [facility] (Rec: 01/14/25 17:42 [facility] Desktop) Occupational Therapy Current Condition Current Condition Evaluation Date 01/14/25 Treatment Diagnosis Fall R L1-L4 traverse process fracture Diagnosis Onset Date 01/12/25 Post Operative Precautions Lumbar Precautions Log Roll,No Twisting,Limit Bending,Lifting Restriction of 10 lbs,Gait Belt above Incisional Area Other Precautions TLSO when out of bed. Weight Bearing Status Weight Bearing Weight Bear as Tolerated Status M3 OT- IP Subjective and Pain Start: 01/14/25 17:07 Freq: Status: Active Protocol: Document 01/15/25 14:11 [facility] (Rec: 01/15/25 14:18 [facility] Desktop) OT- Subjective Occupational Therapy Visit Type Type Treatment Note Visit Start Time 13:10 Visit Stop Time 13:35 Occupational Therapy Visit Comments Patient Comments Pt needing to use the bathroom. Patient/Caregiver TO get better. Goals OT Pain Assessment Pain When Pain Assessed At Rest Pain Present Pain Present Pain Reported Location Right Arm Pain Behaviors Facial Grimacing,Holding Area M4 OT- IP ADL's Start: 01/14/25 17:07 Freq: Status: Active Protocol: Document 01/15/25 14:11 [facility] (Rec: 01/15/25 14:18 [facility] Desktop) OT ADL-Dressing General Eval Upper Body Dressing Independent Ability Comments OT Dressing Comments Pt able to independently renee/doff the TLSO. Figured out to keep the straps intact and just place over her head. OT ADL-Toileting General Evaluation Toileting Ability Standby Assistance Comments OT Toileting Pt able to toilet independently on her own today. Comments M5 OT- IP IADL's Start: 01/14/25 17:07 Freq: Status: Active Protocol: Document 01/14/25 17:07 [facility] (Rec: 01/14/25 17:42 [facility] Desktop) OT-Instrumental Activities of Daily Living Deficits IADL Deficits Deficits Identified Home Safety Awareness Awareness of Need Good Awareness for Assistance at Home Ability to Problem Able to Problem Solve Solve Emergency Situations Home Safety Comments At this time pt is aware not able to care fore herself and will need assist. Medication Management Medication No Deficits Identified Management Money Management Money Management No Deficits Identified Meal Preparation Meal Preparation Pt will need assist. Comments Civil Geotechnical Engineer Civil Geotechnical Engineer Pt will need assist. Comments M6 OT- IP Functional Cognition Start: 01/14/25 17:07 Freq: Status: Active Protocol: Document 01/15/25 14:11 [facility] (Rec: 01/15/25 14:18 [facility] Desktop) Cognitive Factors Limiting Selfcare Function Cognitive Comments Cognitive Assessment Intact, initial vc to push up from the bed versus FWW. Comments Educated pt to proactive of her therapy needs in rehab and so able to be an independent as possible so able to go home when ready. M7 OT- IP Mobility and Balance Start: 01/14/25 17:07 Freq: Status: Active Protocol: Document 01/15/25 14:11 [facility] (Rec: 01/15/25 14:18 [facility] Desktop) OT- Bed Mobility Assessment Supine to Sit Supine to Sit Assist Independent Sit to Supine Sit to Supine Assist Independent OT-Transfer Assessment Sit to and From Stand Sit to and from Standby Assistance Stand Transfers Transfer Ability Standby Assistance Technique Transfer Destination Bed,Toilet Devices Transfer Assistive None,Front Wheeled Walker Devices Comments Mobility Comments SBA with mobility with fww and much more stable on her feet today. OT- Balance Assessment Sitting Balance and Reactions Static Sitting Normal Balance Ability Dynamic Sitting Good Balance Ability Standing Balance and Reactions Static Standing Good Balance Ability Dynamic Standing Fair Balance Ability M8 OT- IP Objective Assessments Start: 01/14/25 17:07 Freq: Status: Active Protocol: Document 01/14/25 17:07 [facility] (Rec: 01/14/25 17:42 [facility] Desktop) OT Gross Range of Motion Upper Extremity Range of Motion Assessment Within Functional Limits OT Strength Comments Strength Comments NT due to transverse spinal fx. M9 OT- IP Assessment and Plan Start: 01/14/25 17:07 Freq: Status: Active Protocol: Document 01/15/25 14:11 [facility] (Rec: 01/15/25 14:18 [facility] Desktop) OT Summary Assessment and Plan Potential Rehabilitation Excellent Potential Analytic Complexity Moderate at Evaluation Summary OT Impairments Pain,Strength,Balance,Functional Mobility,Dressing, Bathing,Toilet Transfers,Shower Transfers Progress Towards Progressing Toward Goals Goals Assessment Summary Able to practice to renee/doff the TLSO and now pt able to do on her own. Pt going to SNF today. Goals Self-Feeding Goal Independent Grooming Goal Independent Dressing Goal Independent Toileting Goal Independent Bathing Goal Independent Toilet Transfer Goal Independent Shower Transfer Goal Independent Days to Meet Goals 7 Frequency of Treatment Other frequency 5x/week Treatment Plan OT Treatment Plan ADL Training,Functional Cognition Training,Patient/ Family Education,Discharge Planning Discharge Recommendations OT Discharge SNF Rehab Recommendations Home Equipment Needs BSC, LB dressing equipment, tub bench Transportation Needs Private Vehicle,Wheelchair/Cabulance at Discharge
--- NOTE | 2025-01-15 15:23 | CM.DPNOTE ---
DC Note Discharge to [facility] today; patient remains agreeable to plan. Transportation previously arranged for [facility] [facility] this afternoon; delayed until approx 2:45p. Hien, nursing care attendant, kindly agreed to complete the coordination for this discharge. Hospital exempt PASRR sent via [employer] to [facility] PASRR consultant internship. Plan: Discharge to [facility] SNF via bernie rodriguez. CODY
== END 2025-01-15 14:45 | DRG 560 ==
LOC: ED 01-11 07:13 → AC 01-12 04:24
PROVIDERS: Admitting Provider Internal Medicine; Emergency Provider Student in an Organized Health Care Education/Training Program; Family Provider Internal Medicine; PCP Internal Medicine; Referring Provider Emergency Medicine; Visit Provider Internal Medicine
DX: T84.216A Breakdown (mechanical) of internal fixation device of vertebrae, initial encounter (principal); S32.019A Unspecified fracture of first lumbar vertebra, initial encounter for closed fracture; S32.029A Unspecified fracture of second lumbar vertebra, initial encounter for closed fracture; S32.039A Unspecified fracture of third lumbar vertebra, initial encounter for closed fracture; S32.049A Unspecified fracture of fourth lumbar vertebra, initial encounter for closed fracture; J44.9 Chronic obstructive pulmonary disease, unspecified; M79.7 Fibromyalgia; F41.9 Anxiety disorder, unspecified; F32.A Depression, unspecified; F17.200 Nicotine dependence, unspecified, uncomplicated; M54.2 Cervicalgia; W10.9XXA Fall (on) (from) unspecified stairs and steps, initial encounter; Y79.3 Surgical instruments, materials and orthopedic devices (including sutures) associated with adverse incidents; Z98.1 Arthrodesis status
CPT/HCPCS: 72131; 72148; 72192; 94640; 96372; 96374; 96375; 96376; 97116; 97162; 97166; 97530; 97535; 99284; J1171; J1650; J1885; J2270; J2405

== ENCOUNTER → 2025-03-06 12:17 | Outpatient (CLI) | payer MEDICARE, MEDICAID, SELFPAY ==
--- NOTE | 2025-03-06 12:21 | DI.RAD.S_ITS ---
PROCEDURE: XR CERVICAL SPINE five views with flexion and extension INDICATIONS: Cervicalgia TECHNIQUE: 5 views of the cervical spine were acquired. COMPARISON: None. FINDINGS: Lateral neutral image demonstrates mild reversal of the normal cervical lordosis centered at C4-5. No abnormal motion on flexion and extension images. Multilevel degenerative changes with disc space narrowing, osteophytes, uncovertebral and facet hypertrophic changes most notably at C4-5, C5-6 and C6-7. No radiographic evidence of fracture, subluxation or abnormal prevertebral soft tissue edema. IMPRESSION: Degenerative changes as discussed above. If symptoms persist or worsen, or there is high clinical suspicion of cervical abnormality, MRI could be performed. Dictated by: Walker Castanon M.D. on 03/06/2025 at 13:14 Approved by: Walker Castanon M.D. on 03/06/2025 at 13:16
== END ==
PROVIDERS: Family Provider Internal Medicine; PCP Internal Medicine; Referring Provider Internal Medicine; Visit Provider Internal Medicine
DX: M47.812 Spondylosis without myelopathy or radiculopathy, cervical region (principal); M54.2 Cervicalgia
CPT/HCPCS: 72040

== ENCOUNTER 2025-04-21 14:30 | Outpatient (RCR) | payer MEDICARE, MEDICAID, SELFPAY ==
--- NOTE | 2025-03-19 12:17 | PT.OPPOC ---
Physical, Occupational & Speech Therapy At [facility] Current Diagnoses Cervicalgia (03/19/25) Unspecified fracture of unspecified lumbar vertebra, subsequent encounter for fracture with routine healing (03/19/25) Visit Care Team Role Provider Type Walker Machado MD Attending Provider Non-Staff Family Provider Primary Care Provider Referring Provider Specialty: Internal Medicine Address: [address] [place] [address], [address], [place], [address] Email: Plan Of Care PT OP: Lower Back/Lower Extremity Start: 03/19/25 12:05 Freq: Status: Active Protocol: Document 03/19/25 12:06 KW (Rec: 03/19/25 12:16 KW Laptop) Out-Patient Physical Therapy Visit Information Visit Information Visit Type Initial Evaluation Visit Start Time 11:30 Visit Stop Time 12:10 Visit Number 40 Progress Note Due 04/18/25 Evaluation Information Evaluation Date 03/19/25 Current Condition History of Current Condition Onset Date 01/10/25 Current Complaints LBP, C spine pain History of Current 54 yo female with h/o lumbar fusion, fell OOB 4 feet Condition and struck back of head, broke her back. Took 3 hrs to get to ED. Hospital stay followed by Rehab stay. She is now back home living in her 5th wheel with 5 dogs, mom lives on the property. She is disabled. Treatment Goals Patient/Caregiver get back to fishing Goals Patient Questionnaires Oswestry Low Back Index Oswestry Score 23 Oswestry Impairment 20 to 39% Impaired (Score 20-39) OP-PT Pain Assessment Location lumbar spine Pain Intensity 5 Scale Used Numeric (0 - 10) Description Aching,Chronic,Cramping,Dull,Pinching,Pulling Frequency Frequent Balance Tests Single Limb Standing Single Limb- Right 10 Single Limb- Left 10 Semi-Tandem Standing Semi-Tandem Standing 8 Balance Functional Tests Five Times Sit to Stand Test Score 10 Comments use of hands, breath holding OP Mobility Evaluation Bed Mobility Rolling cues for log roll Supine to and from cues for proper spine alignment Sit Transfers Sit to Stand cues for knee/hip placement, breath work Functional Movements Squats limited 45 degrees OP Gait Assessment Comments Gait Comments patient ambulated with FWW to SPC, now no device Stair Climbing Evaluation Comments Stair Climbing use of rail Comments Posture Evaluation Position Standing Evaluation View Lateral Head/C-Spine Posture Forward Head T-Spine Posture Increased Kyphosis L-Spine Posture Decreased Lordosis Lumbar Spine Range of Motion Lumbar Spine Active Testing Position Standing Flexion 80 Extension 0 Rotation Left 10 Rotation Right 12 Lateral Flexion Left 8 Lateral Flexion 7 Right ROM Limitations Soft Tissue Tightness Hip Strength Hip Manual Muscle Testing Right Flexion (L2) 4- Good- Extension (S1) 4- Good- Abduction 4- Good- Adduction 4- Good- External Rotation 4- Good- Internal Rotation 4- Good- Left Flexion (L2) 4- Good- Extension (S1) 4- Good- Abduction 4- Good- Adduction 4- Good- External Rotation 4- Good- Internal Rotation 4- Good- Cardio Equipment Recumbent Stepper (Sci-Fit) Duration (Minutes) 6 Resistance 1 Therapeutic Exercises Supine Exercises bridge Supine Exercise Name bridge, handout issued Side bilateral Reps/Minutes 10 with exhale LE stretching Supine Exercise Name hamstring stretch, piriformis stetch - handout issued Side bilateral Standing Exercises gastroc stretch Standing Exercise ROLAND gastroc stretch, wedge Name Side bilateral Self-Care/Home Management Treatment Education Patient Education Body Mechanics,Fall Risk,Home Exercise Program,Joint Protection,Pain Management,Posture,Safety Physical Therapy Assessment Rehab Potential Rehabilitation Good Potential Evaluation Complexity Number of Personal 1-2 Factors/ Comorbidities Number of Body 1-2 Systems Impaired Clinical Stable Presentation at Evaluation Impairments Impairments Activity Tolerance,Balance,Functional Activities, Functional Mobility,Gait,Pain,Posture,Strength Goals Three Impairment impaired Oswestry score Short Term Goal (STG Oswestry score improves 50% ) STG Duration 6 weeks Two Impairment increased pain Short Term Goal (STG pain improves 50% ) STG Duration 6 weeks One Impairment lack of HEP Short Term Goal (STG patient demonstrates compliance and understanding of ) HEP STG Duration 6 weeks Assessment Summary Assessment patient s/p fall with spinal Fx with underlying lumbar fusion. Hardware is stable. Recommend baseline DEXA scan for bone density. Patient will benefit from skilled PT to address deficits in ROM and strength in order to meet PT goals, decrease pain, maximize function, reduce risk for falls. Physical Therapy Plan Frequency and Duration Frequency of 1x/Week Treatment Duration of 6 treatment (weeks) Plan of Care Start 03/19/25 Date Plan of Care End 06/17/25 Date Therapeutic Interventions Therapeutic Balance Training,Gait Training,Home Exercise Program, Interventions Joint Mobilizations,Manual Therapy,Neuromuscular Re- education,Patient/Caregiver Education,Self-Care/Home Management,Soft Tissue Mobilization,Therapeutic Activities,Therapeutic Exercises Modalities Cold Pack/Ice Massage,Electric Stimulation,Hot Packs, Ultrasound Next Visit Focus/Plan Next Note Type Treatment Note Next Visit Plan Nu step shuttle shuttle balance HEP review and progression Plan of Care Dates Plan of Care Start Date 03/19/25 Plan of Care End Date 06/17/25 Electronically Signed by: Madisyn Esparza, NICOLASA 03/19/25 [id number] If you are in agreement with this Plan of Care, please return a signed and dated copy. I have reviewed this Plan of Care and certify that the skilled therapy services above are required to meet the patient?s needs. Physician Signature Date Printed Name and Credentials Clinical Instructor Signature Printed Name and Credentials
--- NOTE | 2025-03-24 14:49 | PT.OTN ---
Current Diagnoses Cervicalgia (03/24/25) Unspecified fracture of unspecified lumbar vertebra, subsequent encounter for fracture with routine healing (03/24/25) Physical Therapy Treatment Note PT OP: Lower Back/Lower Extremity Start: 03/19/25 12:05 Freq: Status: Active Protocol: Document 03/24/25 12:59 AB (Rec: 03/24/25 13:48 AB [id number]) Out-Patient Physical Therapy Visit Information Visit Information Visit Type Treatment Note Visit Note Access Code [email or web address] Visit Start Time 13:03 Visit Stop Time 13:46 Visit Number 2 (40) Number of LINING CUTTER Visits 1 Progress Note Due 04/18/25 OP-PT Subjective Patient Comments Patient Comments Patient rates back/SI pain 2-3/10, but does think she is getting getter. Patient reports she did some exercises at home, but not sure it was home PT or PT from here. Patient reports precautions are no bending, lifting and twisting, and no lifting over 8 lb. Patient reports pin in her back is shifted and has been advised not to have surgery, but is requesting a 2nd opinion. Cardio Equipment Recumbent Stepper (Sci-Fit) Duration (Minutes) 8 Resistance 1,2,1 Seat Position 6 Therapeutic Exercises Supine Exercises abdominal bracing with LE ext Supine Exercise Name From hooklying HEP Reps/Minutes X 10 X then X 5 each side Comments verbal cues Mod Cuong stretch Reps/Minutes 60 sec with AROM knee flexion X 10 X 2 each LE Rhythmic stabilization Supine Exercise Name in hooklying Reps/Minutes 2 min Comments light manual resistance all directions bridge Supine Exercise Name Bridge Side bilateral Reps/Minutes X 15 Comments VC to push into heels, breathing LE stretching Supine Exercise Name hamstring stretch, piriformis stretch fig 4 - handout issued Side bilateral Reps/Minutes piriformis 60 x 2 fig 4 X 2 30-45 sec, 60 sec HS Standing Exercises sit to stand Side bilateral Reps/Minutes X 2 and X 5 Comments Pt ed mechancis of sit to stand and self tactile cues for hip hinge Physical Therapy Assessment Goals Three Impairment impaired Oswestry score Short Term Goal (STG Oswestry score improves 50% ) STG Duration 6 weeks Two Impairment increased pain Short Term Goal (STG pain improves 50% ) STG Duration 6 weeks One Impairment lack of HEP Short Term Goal (STG patient demonstrates compliance and understanding of ) HEP STG Duration 6 weeks Assessment Summary Assessment Patient reports pain is less end of session. Good return demonstration for hip hinge with sit to and from stand Physical Therapy Plan Frequency and Duration Frequency of 1x/Week Treatment Duration of 6 treatment (weeks) Plan of Care Start 03/19/25 Date Plan of Care End 06/17/25 Date Next Visit Focus/Plan Next Note Type Treatment Note Next Visit Plan Nu step shuttle shuttle balance HEP review and progression
--- NOTE | 2025-04-21 14:58 | PT.OPDS ---
Current Diagnoses Cervicalgia (04/21/25) Unspecified fracture of unspecified lumbar vertebra, subsequent encounter for fracture with routine healing (04/21/25) Visit Care Team Role Provider Type Walker Machado MD Attending Provider Non-Staff Family Provider Primary Care Provider Referring Provider Specialty: Internal Medicine Address: [address] [place] [address], [address], [place], [address] Email: Visit Number Visit Number 3 Discharge Summary PT OP: Lower Back/Lower Extremity Start: 03/19/25 12:05 Freq: Status: Active Protocol: Document 04/21/25 14:48 KW (Rec: 04/21/25 14:58 KW Laptop) Out-Patient Physical Therapy Visit Information Visit Information Visit Type Discharge Summary Visit Start Time 14:30 Visit Stop Time 15:10 Visit Number 3 Precautions Precautions none OP-PT Subjective Patient Comments Patient Comments would like to DC today Cardio Equipment Recumbent Stepper (Sci-Fit) Duration (Minutes) 8 Resistance 1,2,1 Seat Position 6 Gym Equipment Shuttle Recovery squats Details B LE Shuttle Balance AP ML red Details AP ML red Therapeutic Ball seated band pulls Exercise Details B UE pulls Self-Care/Home Management Treatment Education Patient Education Body Mechanics,Fall Risk,Home Exercise Program,Joint Protection,Pain Management,Posture,Safety Physical Therapy Assessment Goals Three Impairment impaired Oswestry score Short Term Goal (STG Oswestry score improves 50% MET ) STG Duration 6 weeks Two Impairment increased pain Short Term Goal (STG pain improves 50%- MET ) STG Duration 6 weeks One Impairment lack of HEP Short Term Goal (STG patient demonstrates compliance and understanding of ) HEP - MET STG Duration 6 weeks Progress Towards Goals Progress Towards Progressing Toward Goals Goals Assessment Summary Assessment making good gains with ther ex, pain management Physical Therapy Plan Frequency and Duration Frequency of 1x/Week Treatment Duration of 6 treatment (weeks) Plan of Care Start 03/19/25 Date Plan of Care End 06/17/25 Date Discharge Physical Therapy Discharge Reasons Patient Request Next Visit Focus/Plan Next Note Type Treatment Note Next Visit Plan Nu step shuttle shuttle balance HEP review and progression
== END 2025-04-22 13:44 | disposition home or self-care (01) ==
LOC: PHYS 14:30
PROVIDERS: Family Provider Internal Medicine; PCP Internal Medicine; Referring Provider Internal Medicine; Visit Provider Internal Medicine
DX: M54.2 Cervicalgia (principal); S32.009D Unspecified fracture of unspecified lumbar vertebra, subsequent encounter for fracture with routine healing
CPT/HCPCS: 97110; 97161